=== PATIENT | female | born 1940 | race African-American/Black ===

== ENCOUNTER 2017-08-18 07:05 | Inpatient (IN) | payer OTHER ==
[~2017-08-18] VITALS: Ht 152.4 cm; Wt 67.1 kg
--- NOTE | ~2017-08-18 | HC ---
[facility] [place] [address] CONSULTATION Name: LINA LOMELI Ash Room #: 448-P [facility] IN M.R.#: [id number] Admission: 08/18/17 Attend Phys: Cassius Fields MD Discharge: 08/22/17 Date of : 42 Report #: [id number] THIS REPORT FOR: //name// CC: Cassius Urias DATE OF SERVICE: 08/21/2017 REASON FOR CONSULTATION: Shortness of breath. IMPRESSION: 1. Likely exacerbation of chronic obstructive pulmonary disease/asthmatic bronchitis. 2. Eosinophilia. 3. Shingles. 4. Allergic rhinitis. PLAN: 1. We will do a D-dimer. If positive, we will do CT PE protocol. 2. Because sinuses seem to have always been a problem and may be driving part of this, we will do a CT sinus. 3. Strict reflux precautions will be done. 4. Switch to oral corticosteroids. 5. As she feels better with this regimen, we will try to get it for home. 6. We will also look for tracheomalacia. 7. Prior CT did not show any significant bronchiectasis. We will hold off on chest percussion at present time or vest. HISTORY OF PRESENT ILLNESS: This is a very pleasant 76-year-old female with a history of asthma and COPD, comes in with progressive shortness of breath, cough and sputum production. She relates sputum production is better. She is still wheezing some, but feeling better than usual. She has been on steroids in the past. She denies current fever or chills. She does describe some reflux. She has had recent shingles. PAST MEDICAL HISTORY: ALLERGIES: AVELOX. HOME MEDICATIONS: Have included Proventil, Acular, Cozaar, Singulair, Naprosyn, prednisone, Anoro. PAST SURGICAL HISTORY: Include cataract surgery, hysterectomy, sinus surgery, oral surgery for upper teeth. FAMILY HISTORY: Positive for lung disease. [facility] [address] [place] [address] CONSULTATION Name: LINA LOMELI Room #: 448-P [facility] IN M.R.#: [id number] Admission: 08/18/17 Attend Phys: Cassius Fields MD Discharge: 08/22/17 Date of : 42 Report #: [id number] SOCIAL HISTORY: Negative tobacco or EtOH. REVIEW OF SYSTEMS: Positive cough, shortness of breath, discolored sputum. No definite chest pain or palpitations. No current nausea or vomiting. Positive reflux. Positive decreased appetite, nasal stuffiness and decreased vision. PHYSICAL EXAMINATION: VITAL SIGNS: Temperature 98, pulse 92, respiratory rate 20, BP 158/66. EYES: Negative icterus. NECK: Negative JVD. LUNGS: Showed wheeze, mild bilateral. HEART: Regular. ABDOMEN: Benign. EXTREMITIES: Showed no calf tenderness. Moved all extremities. Trace edema. LABORATORY DATA: BUN 18, creatinine 1. White count 11.3, hemoglobin 13.5. Eosinophils were 6.8, currently none. Chest x-ray on the showed no acute. Last echo was 2013. PA systolic was 35. May need to repeat this depending on above. It could be done as outpatient. Sputum negative thus far. <ELECTRONICALLY SIGNED> By: Mazin Dawson MD 08/24/17 1808 1424 1819 Mazin Dawson MD /nt
--- NOTE | ~2017-08-18 | EKG ---
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 : 1940 Requested By: Clarisse Lawton Order Number: [id number] MD: Jose Luis Mota Measurements Intervals [place] Rate: 100 P: 32 VA: 138 QRS: 28 QRSD: 78 T: 33 QT: 381 QTc: 492 Interpretive Statements Sinus tachycardia Prolonged QT interval Early R-wave progression Compared to ECG 08/02/2014 02:56:25 Early R-wave progression is now present QT interval has lengthened Electronically Signed On 08-19-2017 9:48:11 STAB SETTER AND DRILLER by Jose Luis Mota [email or web address] <ELECTRONICALLY SIGNED> By: Jose Luis Mota MD, [facility] 08/19/17 0948 0745 0745 Jose Luis oMta MD, [facility] /EPI
[~2017-08-18 07:05] MED LIST: ALBUTEROL2.5 MG/0.5 INH; ALLEGRA ALLERGY60 MG; ASPIRIN EC81 M1 PO; AUGMENTIN 875-1 EACH PO; AVELOX400 MG PO; AZITHROMYCIN 2250 MG PO; CENTANY30 GM; COLACE100 MG PO; COMBIVENT INH; FLONASE 0.05%50 MCG NASAL; HYDROCODONE-APA1 TA1 PO; LEVAQUIN 500 M500 M2 PO; MEDROLDOSEPACK PO; MUCINEX TA600 MG/TA2 PO; MULTIVITAMINS1 EAC7 PO; NASACORT10.8 ML NASAL; NASAL SPRAY44 ML NS; NOHOMEMEDICATIONS; PREDNISONE 10 M10 MG PO; PREDNISONE 20 M20 M1 PO; PREDNISONE50 MG PO; PROVENTIL HFA6.7 G1 INH; SUDAFED 12 HR120 MG PO; SYMBICORT160 MCG/4. INH; TESSALON PERLE100 M1 PO; TYLENOL325 MG PO; VENTOLIN HFA 1818 GM INH; ZOFRAN ODT8 MG PO; ZPAK PO; ZYRTEC10 MG PO
[2017-08-18 07:33] LABS: ABSOLUTE NEUTROPHILS 4.8 thou/uL (1.4-8.2); BASOPHILS 0.7 % (0.0-2.0); EOSINOPHILS 6.8 % (0.0-3.0); HEMATOCRIT 45.8 % (37.0-47.0); HEMOGLOBIN 15.3 gm/dL (12.0-15.0); LYMPHOCYTES 30.4 % (24.0-44.0); MCH 30.7 pg (26.0-34.0); MCHC 33.5 g/dL (28.0-37.0); MCV 91.6 fL (80.0-100.0); MONOCYTES 10.4 % (1.0-8.0); PLATELET COUNT 301 thou/uL (150-400); POLYS 51.7 % (36.0-66.0); WBC 9.3 thou/uL (4.0-11.0)
[2017-08-18 07:34] LABS: MANUAL DIFF NO
[2017-08-18 07:40] LABS: CALCIUM 9.7 mg/dL (8.5-10.1); CREATININE 0.8 mg/dL (0.6-1.0); POTASSIUM 3.2 mmol/L (3.5-5.1)
[2017-08-18 08:40] LABS: ABG SAMPLE TYPE ARTERIAL; BE(vivo) 1.3 mmol/L (-2 to +3); HCO3 25.9 mmol/L (22.0-26.0); LACTATE 2.09 mmol/L (0.5-2.0); O2(CT) 20.6 mL/dL (15.0-23.0); O2Hb 92.3 % (92.0-98.0); PCO2 40.6 mmHg (35.0-45.0); PO2 64.2 mmHg (80.0-100.0); pH 7.422 (7.360-7.450); sO2 92.9 % (92.0-98.0); tCO2 27.1 mmol/L (24.0-30.0)
[2017-08-18 08:42] LABS: STICK SITE R.RADIAL
[2017-08-18 09:04] VITALS: BP 161/84
[2017-08-18 09:33] VITALS: BP 142/75
[2017-08-18 10:15] VITALS: BP 158/85
[2017-08-18 15:55] VITALS: BP 146/67
[2017-08-18 19:59] VITALS: BP 131/79
[2017-08-19 04:11] VITALS: BP 124/76
[2017-08-19 06:49] LABS: HEMATOCRIT 41.1 % (37.0-47.0); HEMOGLOBIN 13.7 gm/dL (12.0-15.0); MCH 30.5 pg (26.0-34.0); MCHC 33.4 g/dL (28.0-37.0); MCV 91.3 fL (80.0-100.0); RBC 4.5 mil/uL (4.20-5.00); RDW 13.4 % (10.5-14.5); WBC 8.7 thou/uL (4.0-11.0)
[2017-08-19 07:05] LABS: ALBUMIN 3.5 g/dL (3.4-5.0); CALCIUM 9.4 mg/dL (8.5-10.1); POTASSIUM 4.1 mmol/L (3.5-5.1); TOTAL BILIRUBIN 0.8 mg/dL (<0.1-1.0); TOTAL PROTEIN 6.5 g/dL (6.4-8.2)
[2017-08-19 15:50] VITALS: BP 126/60
[2017-08-19 19:54] VITALS: BP 120/51
[2017-08-20 05:08] VITALS: BP 142/62
[2017-08-20 08:00] VITALS: BP 142/62
[2017-08-20 09:40] VITALS: BP 128/65
[2017-08-20 15:46] VITALS: BP 137/50
[2017-08-20 20:16] VITALS: BP 126/71
[2017-08-21 03:13] VITALS: BP 140/74
[2017-08-21 08:00] VITALS: BP 158/66
[2017-08-21 08:25] VITALS: BP 158/66
[2017-08-21 12:14] LABS: HEMATOCRIT 40.7 % (37.0-47.0); HEMOGLOBIN 13.5 gm/dL (12.0-15.0); MCH 30.8 pg (26.0-34.0); MCHC 33.2 g/dL (28.0-37.0); PLATELET COUNT 224 thou/uL (150-400); RBC 4.38 mil/uL (4.20-5.00); RDW 13.8 % (10.5-14.5); WBC 11.3 thou/uL (4.0-11.0)
[2017-08-21 12:23] LABS: MANUAL DIFF YES
[2017-08-21 14:00] LABS: ABSOLUTE NEUTROPHILS 10.4 thou/uL (1.4-8.2); PLATELET ESTIMATE NORMAL; TOTAL CELL COUNT 100
[2017-08-21 17:30] VITALS: BP 147/83
[2017-08-21 20:18] VITALS: BP 159/76
[2017-08-22 04:28] VITALS: BP 136/78
[2017-08-22 07:18] VITALS: BP 145/70
[2017-08-22] MEDS ORDERED: AUGMENTIN 500-1 EACH PO (11:41)
[2017-08-22] MEDS ORDERED: NEURONTIN 300M300 M2 PO (11:41)
[2017-08-22] MEDS ORDERED: PREDNISONE 20 M20 MG PO (11:41)
[2017-08-22] MEDS ORDERED: DUONEB 2.5-0.5 M3 ML INH (11:41)
[2017-08-22 12:29] VITALS: BP 145/70
== END 2017-08-22 14:20 | disposition home or self-care (01) | DRG 872 ==
LOC: ER 07:05 → 4S 08:30 → EROBS 08:30 → 4S 09:36 → ENTRNSPT 08-22 14:10 → EDTRNSPTSTS 08-22 14:11 → 4S 08-22 14:20
PROVIDERS: Emergency Medicine; Hospitalist; Internal Medicine Pulmonary Disease
DX: A41.9 Sepsis, unspecified organism (principal); J44.1 Chronic obstructive pulmonary disease with (acute) exacerbation; E87.6 Hypokalemia; J32.9 Chronic sinusitis, unspecified; J01.90 Acute sinusitis, unspecified; D72.1 Eosinophilia; B02.9 Zoster without complications; J30.9 Allergic rhinitis, unspecified; Z23 Encounter for immunization; Z88.1 Allergy status to other antibiotic agents; Z90.710 Acquired absence of both cervix and uterus; Z84.89 Family history of other specified conditions
CPT/HCPCS: 10100

== ENCOUNTER 2017-09-09 18:56 | Inpatient (IN) | payer OTHER ==
[~2017-09-09] VITALS: Ht 165.1 cm; Wt 66.3 kg
[2017-09-09] VITALS (7 sets, daily range): BP systolic 131–194; BP diastolic 83–111
--- NOTE | ~2017-09-09 | EKG ---
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 : 1940 Requested By: Chuy Valenzuela Order Number: [id number] MD: Raghavendra Luz Measurements Intervals [place] Rate: 117 P: 74 AL: 143 QRS: 74 QRSD: 109 T: 49 QT: 339 QTc: 473 Interpretive Statements Sinus tachycardia Ventricular premature complex Probable left atrial enlargement Compared to ECG 08/18/2017 07:45:57 Ventricular premature complex(es) now present Prolonged QT interval no longer present Electronically Signed On 09-09-2017 21:33:14 DRIVABILITY TECHNICIAN by Raghavendra Luz [email or web address] <ELECTRONICALLY SIGNED> By: Raghavendra Luz MD 09/09/17 2133 00 00 Raghavendra Luz MD /EPI
[~2017-09-09 18:56] MED LIST changes: +AUGMENTIN 500-1 EACH PO; +DUONEB 2.5-0.5 M3 ML INH; +NEURONTIN 300M300 M2 PO; +PREDNISONE 20 M20 MG PO
[2017-09-09 19:18] LABS: ABSOLUTE NEUTROPHILS 3.3 thou/uL (1.4-8.2); BASOPHILS 0.4 % (0.0-2.0); EOSINOPHILS 7.9 % (0.0-3.0); HEMATOCRIT 41.3 % (37.0-47.0); HEMOGLOBIN 13.9 gm/dL (12.0-15.0); LYMPHOCYTES 36.5 % (24.0-44.0); MANUAL DIFF NO; MCH 31.2 pg (26.0-34.0); MCHC 33.6 g/dL (28.0-37.0); PLATELET COUNT 291 thou/uL (150-400); POLYS 44.2 % (36.0-66.0); RBC 4.44 mil/uL (4.20-5.00); RDW 13.8 % (10.5-14.5); WBC 7.3 thou/uL (4.0-11.0)
[2017-09-09 19:27] LABS: ANION GAP 7 mmol/L (7-16); BUN 5 mg/dL (7-18); CALCIUM 9.3 mg/dL (8.5-10.1); CHLORIDE 106 mmol/L (98-107); CO2 29 mmol/L (21-32); CREATININE 0.6 mg/dL (0.6-1.0); GLUCOSE 181 mg/dL (74-106); POTASSIUM 3.7 mmol/L (3.5-5.1); SODIUM 142 mmol/L (136-145)
[2017-09-09 19:35] LABS: ALBUMIN 3.6 g/dL (3.4-5.0); ALKALINE PHOSPHATASE 58 U/L (46-116); SGOT 26 U/L (15-37); SGPT 36 U/L (30-65); TOTAL BILIRUBIN 0.7 mg/dL (<0.1-1.0); TOTAL PROTEIN 6.7 g/dL (6.4-8.2); TROPONIN-I < 0.04 ng/mL (<0.06)
[2017-09-09 19:39] LABS: ABG SAMPLE TYPE ARTERIAL; BE(vivo) -7.9 mmol/L (-2 to +3); HCO3 21.8 mmol/L (22.0-26.0); LACTATE 0.94 mmol/L (0.5-2.0); O2(CT) 20.8 mL/dL (15.0-23.0); O2Hb 97.5 % (92.0-98.0); PO2 150.9 mmHg (80.0-100.0); sO2 98.3 % (92.0-98.0); tCO2 23.7 mmol/L (24.0-30.0)
[2017-09-09 19:40] LABS: STICK SITE R.BRACHIAL; pH 7.163 (7.360-7.450)
[2017-09-09 23:23] LABS: ABG SAMPLE TYPE ARTERIAL; BE(vivo) -2.5 mmol/L (-2 to +3); HCO3 24.2 mmol/L (22.0-26.0); LACTATE 1.71 mmol/L (0.5-2.0); O2(CT) 20.3 mL/dL (15.0-23.0); O2Hb 98.2 % (92.0-98.0); PCO2 49.1 mmHg (35.0-45.0); PO2 173.7 mmHg (80.0-100.0); tCO2 25.7 mmol/L (24.0-30.0)
[2017-09-09 23:25] LABS: FIO2 40 %; Pressure Support 6 cm H20
[2017-09-10] VITALS (23 sets, daily range): BP systolic 117–169; BP diastolic 65–126
[2017-09-10 04:13] LABS: HEMATOCRIT 41.6 % (37.0-47.0); HEMOGLOBIN 13.7 gm/dL (12.0-15.0); MCH 30.8 pg (26.0-34.0); MCHC 32.9 g/dL (28.0-37.0); MCV 93.7 fL (80.0-100.0); RBC 4.44 mil/uL (4.20-5.00); RDW 14.1 % (10.5-14.5); WBC 4.1 thou/uL (4.0-11.0)
[2017-09-10 04:23] LABS: CREATININE 0.7 mg/dL (0.6-1.0)
[2017-09-10] MEDS ORDERED: DUONEB 2.5-0.5 M3 ML INH (08:14)
[2017-09-10] MEDS ORDERED: SINGULAIR 10 MG10 M1 PO (08:14)
[2017-09-10] MEDS ORDERED: PREDNISONE 5 MG5 M1 PO (08:14)
[2017-09-10] MEDS ORDERED: COZAAR 50 MG TA50 M2 PO (08:14)
[2017-09-11 00:15] VITALS: BP 153/89
[2017-09-11 04:31] VITALS: BP 125/65
[2017-09-11 06:34] LABS: HEMATOCRIT 34.5 % (37.0-47.0); MCH 31.3 pg (26.0-34.0); MCHC 33.8 g/dL (28.0-37.0); MCV 92.5 fL (80.0-100.0); RBC 3.72 mil/uL (4.20-5.00); RDW 13.7 % (10.5-14.5); WBC 9.5 thou/uL (4.0-11.0)
[2017-09-11 06:43] LABS: HEMOGLOBIN 11.6 gm/dL (12.0-15.0)
[2017-09-11 06:53] LABS: CALCIUM 8.7 mg/dL (8.5-10.1); CREATININE 0.7 mg/dL (0.6-1.0)
[2017-09-11 08:00] VITALS: BP 134/59
[2017-09-11 15:50] VITALS: BP 144/64
[2017-09-11 20:12] VITALS: BP 139/63
[2017-09-12 04:30] VITALS: BP 128/65
[2017-09-12 08:12] VITALS: BP 143/74
[2017-09-12] MEDS ORDERED: AUGMENTIN 500-1 EACH PO (13:44)
[2017-09-12] MEDS ORDERED: PREDNISONE 20 M20 MG PO ×2 (13:44→13:47)
[2017-09-12 14:00] VITALS: BP 143/74
[2017-09-12 14:46] VITALS: BP 143/74
== END 2017-09-12 14:49 | disposition home or self-care (01) | DRG 871 ==
LOC: ER 18:56 → ICU 19:53 → EROBS 19:53 → ICU 21:30 → 4S 09-11 00:25 → ENTRNSPT 09-12 14:27 → EDTRNSPTSTS 09-12 14:31 → 4S 09-12 14:49
PROVIDERS: Hospitalist; Nurse Practitioner Family; Physician Assistant
PROC: 5A09357 Assistance with Respiratory Ventilation, Less than 24 Consecutive Hours, Continuous Positive Airway Pressure (ICD-10-PCS; principal; 2017-09-09)
DX: A41.9 Sepsis, unspecified organism (principal); J96.22 Acute and chronic respiratory failure with hypercapnia; J96.21 Acute and chronic respiratory failure with hypoxia; J44.1 Chronic obstructive pulmonary disease with (acute) exacerbation; J45.901 Unspecified asthma with (acute) exacerbation; I10 Essential (primary) hypertension; J32.9 Chronic sinusitis, unspecified; J30.9 Allergic rhinitis, unspecified; Z23 Encounter for immunization; Z79.52 Long term (current) use of systemic steroids; Z88.1 Allergy status to other antibiotic agents; Z79.899 Other long term (current) drug therapy; Z90.710 Acquired absence of both cervix and uterus
CPT/HCPCS: 10100; 10203

== ENCOUNTER 2018-12-25 05:38 | Inpatient (IN) | payer OTHER ==
[2018-12-16 13:24] LABS: HEMATOCRIT 39.5 % (37.0-47.0); HEMOGLOBIN 13.6 gm/dL (12.0-15.0); MCH 30.4 pg (26.0-34.0); MCHC 34.5 g/dL (28.0-37.0); RBC 4.49 mil/uL (4.20-5.00); RDW 15.7 % (10.5-14.5); URINE BILIRUBIN NEGATIVE (Negative); URINE BLOOD NEGATIVE (Negative); URINE CLARITY SL CLOUDY; URINE COLOR YELLOW; URINE GLUCOSE-RANDOM* NEGATIVE (Negative); URINE KETONES NEGATIVE (Negative); URINE NITRITE-REFLEX NEGATIVE (Negative); URINE PROTEIN (DIPSTICK) TRACE (Negative); URINE SPECIFIC GRAVITY 1.025 (1.005-1.035); URINE UROBILINOGEN 0.2 E.U./dl (0.2-1.0); WBC 5.5 thou/uL (4.0-11.0)
[2018-12-16 13:25] LABS: URINE LEUKOCYTES-REFLEX 3+ (Negative)
[2018-12-16 13:31] LABS: CALCIUM 9.6 mg/dL (8.5-10.1); CREATININE 0.5 mg/dL (0.6-1.0); POTASSIUM 4.1 mmol/L (3.5-5.1)
[2018-12-16 13:32] LABS: AMORPHOUS URATES Moderate /LPF (None Seen); CASTS None Seen /LPF (None Seen); SQUAMOUS 0-3 Few /LPF (0-3); URINE RBC None Seen /HPF (0-2); URINE WBC-REFLEX 6-15 Few /HPF (0-5)
[2018-12-16 13:36] LABS: PROTIME 10.3 Seconds (9.3-11.4)
[~2018-12-25] VITALS: Ht 165.1 cm; Wt 64.9 kg
--- NOTE | ~2018-12-25 | O ---
[facility] [place] [address] OPERATIVE REPORT Name: LINA LOMELI Room #: 150-8 ADM IN M.R.#: [id number] Admission: 12/25/18 ������������������ Attend Phys: Suresh Arango Discharge: ������������������ Date of : 42 Report #: [id number] THIS REPORT FOR: //name// CC: Dallin Zepeda PREOPERATIVE DIAGNOSES: Left shoulder pain, rotator cuff tear arthropathy, biceps tendinopathy and tear. POSTOPERATIVE DIAGNOSES: Left shoulder pain, rotator cuff tear arthropathy, biceps tendinopathy and tear. PROCEDURE PERFORMED: Left shoulder reverse total shoulder arthroplasty with open biceps tenodesis. SURGEON: Suresh Zepeda M.D. VARNISH MAKER HELPER: Reina Green PA-C. ANESTHESIA: General with preoperative ultrasound-guided interscalene block. FLUIDS: Approximately 600 mL crystalloid. ESTIMATED BLOOD LOSS: Approximately 75 mL. IMPLANTS UTILIZED: DePuy Global Xtend reverse total shoulder, size 8 Global Unite stem and size 1 epiphysis with a 38 mm eccentric glenosphere standard metaglene. DESCRIPTION OF PROCEDURE: After proper identification of the patient and operative site in preoperative holding area, the operative site was signed by myself. Prophylactic antibiotics given. The patient elected to receive an ultrasound-guided block after reviewing the risks, benefits, alternatives and potential complications with anesthesia. After a satisfactory block, the patient was brought back to the operative suite after induction of satisfactory general anesthesia. The patient was carefully positioned in the beach chair with head of bed elevated approximately 40 degrees. Left shoulder was stabilized with a Tenet spider limb positioning system throughout the entire procedure. Limb was sterilely prepped and draped in usual manner. Final skin draping was with Ioban. Anterior deltopectoral approach was planned. Skin was incised sharply. Full thickness skin flaps were developed. Cephalic vein was identified and retracted laterally. Subdeltoid adhesions were carefully released and long head biceps tendon was identified and tenodesed to the upper border of the pectoralis major. Portion of the upper border of the pectoralis has also been released for exposure purposes. The inferior subscapularis was still intact and was released off the lesser tuberosity, otherwise a large to massive sized rotator cuff tear was noted with arthrosis noted on both sides of [address] [address] OPERATIVE REPORT Name: LOMELILINA Room #: 150-8 ADM IN R.#: [id number] Admission: 12/25/18 ������������������ Attend Phys: Suresh Arango Discharge: ������������������ Date of : 42 Report #: [id number] the joint. Humerus was externally rotated and using the appropriate cutting jig, a humeral head osteotomy was performed. Peripheral bone spurs were carefully released. A small portion of the posterior cuff was still attached. The patient had a relatively small bony stature and the epiphyseal and metaphyseal size protection plate was applied at this point. Attention was divided to the subscapularis release. Axillary nerve was identified and protected throughout the entire procedure. The anterior capsule was carefully divided off the subscapularis, and then, the labrum was excised circumferentially. Inferior capsule was released off the glenoid side, and there was excellent exposure of the glenoid. Metaglene guide pin was inserted as inferior as possible while keeping this within good bone, and this was placed into the scapula. Glenoid face was then reamed. Lucas reamer was utilized Any peripheral soft tissue was carefully removed. A cyst within the more posterior inferior glenoid was noted, and the metaglene was carefully impacted into position. Central peg was contained within the vault and did not perforate. The superior and inferior locking screw holes were then drilled. 42 mm screw was placed inferiorly, 30 mm screw superiorly. These had excellent purchase, followed by two 18 mm screws in the anterior and posterior dimensions. These were sequentially tightened. Locking screws were tightened and a 38 eccentric glenosphere was positioned with the eccentricity inferior. This was done over a guidewire. The locking screw was rotated counterclockwise until a click was noted. This was then carefully advanced, impacted and tightened three additional times until it was fully seated. It had excellent purchase on the glenoid. The patient did have significant tightness of the soft tissue envelope and the soft tissues around the proximal humerus were released and the inferior translation as she had some superior migration with her cuff arthropathy. The remaining metaphysis was then carefully reamed, and with reaming, there was some fragmentation of the lesser tuberosity and the more inferior aspect of the metaphysis. During the exposure purposes, even with a protection plate, had caused some fragmentation in this region as well. A size 8 stem provided the best fit distally with a size 1 epiphysis and a +3 polyethylene, and these were the final implants chosen. Hydroxyapatite coated Global Unite stem was carefully impacted into position and with the fragmentation of the tuberosities, the remaining subscapularis was not able to be tied to this, but a tenodesis to the posterior soft tissues was performed. A tenodesis to the remaining teres minor soft tissues was performed under direct visualization, with care taken to not incorporate axillary nerve or any other structures. A +3 poly had been impacted. It was stable. Joint was reduced. There was good soft tissue tension, although was not excessive soft tissue tension. Joint was reduced nicely, had good range of motion. Deltoid did not appear to have any undue tension, and the wound was irrigated with antibiotic irrigant as had done so multiple times throughout the procedure. 1 gram vancomycin powder was utilized deep, half of it more superficial. #1 Vicryl was used to close the deep tissues, 2-0 Vicryl for the subcutaneous tissues, followed by running Monocryl stitch with Dermabond. A sterile Aquacel dressing was then applied. She was awakened and transferred to the recovery room in stable condition. Qualified [address] [address] OPERATIVE REPORT Name: LINA LOMELI Room #: 150-8 ADM IN M.R.#: [id number] Admission: 12/25/18 ������������������ Attend Phys: Suresh Arango Discharge: ������������������ Date of : 42 Report #: [id number] first aid instructor utilized throughout the entire procedure to aid in patient limb positioning, visualization and retraction of the soft tissues, instrument passage closure and sling application. Sling will be utilized for 4 weeks postoperatively. ��������������������������������������������� ���������������������������������������� By: ��������������������������������������������� 1043 1228 Suresh Zepeda MD /nt
[~2018-12-25 05:38] MED LIST changes: +ALEVE220 MG PO; +ANORO ELLIPTA1 EACH SPRAY; +CALCIUM 600 +1 EAC1 PO; +COZAAR 50 MG TA50 M2 PO; +NORCO 5-325 TA1 EACH PO; +PREDNISONE 5 MG5 M1 PO; +REQUIP0.5 MG PO; +SENNA8.6 MG PO; +SINGULAIR 10 MG10 M1 PO; +TRELEGY ELLIPT1 EACH INH; +VOLTAREN GEL 1100 G1 TOP
[2018-12-25 07:30] VITALS: BP 139/67
[2018-12-25 13:53] VITALS: BP 146/80
[2018-12-25 14:35] VITALS: BP 149/91
[2018-12-25 19:20] VITALS: BP 136/78
[2018-12-26 03:54] VITALS: BP 134/73
[2018-12-26 06:03] LABS: HEMATOCRIT 27.6 % (37.0-47.0); HEMOGLOBIN 9.4 gm/dL (12.0-15.0)
[2018-12-26 07:22] VITALS: BP 119/65
[2018-12-26 15:22] VITALS: BP 114/47
[2018-12-26 19:20] VITALS: BP 117/60
[2018-12-27 05:08] VITALS: BP 116/84
[2018-12-27 08:19] VITALS: BP 107/56
[2018-12-27 15:31] VITALS: BP 108/51
[2018-12-27 20:21] VITALS: BP 92/41
[2018-12-28 04:46] VITALS: BP 136/72
[2018-12-28 07:50] VITALS: BP 89/41
[2018-12-28 12:52] VITALS: BP 108/55
== END 2018-12-28 13:55 | DRG 483 ==
LOC: PRE 05:38 → TBA 05:51 → 4W 13:57 → PRE 14:02 → 4W 14:28
PROVIDERS: Physician Assistant Surgical; ADMIT Orthopaedic Surgery Sports Medicine
PROC: 0RRK00Z Replacement of Left Shoulder Joint with Reverse Ball and Socket Synthetic Substitute, Open Approach (ICD-10-PCS; principal; 2018-12-25)
PROC: 0LS40ZZ Reposition Left Upper Arm Tendon, Open Approach (ICD-10-PCS; 2018-12-25)
DX: M75.102 Unspecified rotator cuff tear or rupture of left shoulder, not specified as traumatic (principal); J44.9 Chronic obstructive pulmonary disease, unspecified; I10 Essential (primary) hypertension; Z88.1 Allergy status to other antibiotic agents; Z98.49 Cataract extraction status, unspecified eye; Z90.710 Acquired absence of both cervix and uterus
CPT/HCPCS: 10047; 50010; 50101; 50172; 50386; 50417; 50697; 50733; 50935; 51320; 52001; 52138; 52256; 53000; 53078; 54118; 55430; 56524; 56525; 56526; 56530; 57095; 57103; 62110; 62900; 64039; 70005

== ENCOUNTER 2019-01-14 23:46 | Emergency (ER) | payer OTHER ==
[~2019-01-14] VITALS: Ht 165.1 cm; Wt 59.0 kg
[2019-01-15 00:21] LABS: ABSOLUTE NEUTROPHILS 11.1 thou/uL (1.4-8.2); BASOPHILS 0.4 % (0.0-2.0); EOSINOPHILS 0.2 % (0.0-3.0); HEMATOCRIT 30.4 % (37.0-47.0); MCH 29.3 pg (26.0-34.0); MCHC 32.8 g/dL (28.0-37.0); MCV 89.4 fL (80.0-100.0); PLATELET COUNT 313 thou/uL (150-400); POLYS 81.4 % (36.0-66.0); RDW 15.7 % (10.5-14.5); WBC 13.6 thou/uL (4.0-11.0)
[2019-01-15 00:29] LABS: CALCIUM 8.6 mg/dL (8.5-10.1); CREATININE 0.7 mg/dL (0.6-1.0); POTASSIUM 4.1 mmol/L (3.5-5.1)
[2019-01-15 00:31] LABS: URINE BILIRUBIN NEGATIVE (Negative); URINE BLOOD NEGATIVE (Negative); URINE CLARITY CLEAR; URINE COLOR YELLOW; URINE GLUCOSE-RANDOM* NEGATIVE (Negative); URINE KETONES NEGATIVE (Negative); URINE LEUKOCYTES-REFLEX NEGATIVE (Negative); URINE NITRITE-REFLEX NEGATIVE (Negative); URINE PROTEIN (DIPSTICK) NEGATIVE (Negative); URINE UROBILINOGEN 0.2 E.U./dl (0.2-1.0)
[2019-01-15 00:34] LABS: TOTAL BILIRUBIN 0.5 mg/dL (<0.1-1.0); TOTAL PROTEIN 6.4 g/dL (6.4-8.2)
[2019-01-15] MEDS ORDERED: KEFLEX500 M1 PO (01:24)
[2019-01-15] MEDS ORDERED: FLEXERIL PO (01:38)
[2019-01-15] MEDS ORDERED: VITAMINC500 PO (01:39)
[2019-01-15] MEDS ORDERED: UNICOMPLEX M TA1 TA1 PO (01:39)
[2019-01-15] MEDS ORDERED: NORCO 10-325 T1 EACH PO (01:40)
[2019-01-15] MEDS ORDERED: NEURONTIN 300300 M1 PO (01:41)
[2019-01-15] MEDS ORDERED: MELATONIN3 MG PO (01:42)
[2019-01-15 03:07] VITALS: BP 102/47
== END 2019-01-15 03:46 | disposition home or self-care (01) ==
LOC: ER 23:46
PROVIDERS: Emergency Medicine
DX: R50.9 Fever, unspecified (principal); J44.9 Chronic obstructive pulmonary disease, unspecified; I10 Essential (primary) hypertension; M19.90 Unspecified osteoarthritis, unspecified site; Z96.612 Presence of left artificial shoulder joint; Z88.8 Allergy status to other drugs, medicaments and biological substances; Z87.01 Personal history of pneumonia (recurrent); Z90.710 Acquired absence of both cervix and uterus

== ENCOUNTER 2019-01-17 11:04 | Inpatient (IN) | payer OTHER ==
[~2019-01-17] VITALS: Ht 165.1 cm; Wt 59.0 kg
[2019-01-17 11:04] VITALS: BP 101/43
[~2019-01-17 11:04] MED LIST changes: +FLEXERIL PO; +KEFLEX500 M1 PO; +MELATONIN3 MG PO; +NEURONTIN 300300 M1 PO; +NORCO 10-325 T1 EACH PO; +UNICOMPLEX M TA1 TA1 PO; +VITAMINC500 PO
[2019-01-17 11:28] LABS: ABSOLUTE NEUTROPHILS 8.5 thou/uL (1.4-8.2); BASOPHILS 0.3 % (0.0-2.0); HEMATOCRIT 25.6 % (37.0-47.0); HEMOGLOBIN 8.6 gm/dL (12.0-15.0); LYMPHOCYTES 8.4 % (24.0-44.0); MCH 29.5 pg (26.0-34.0); MCHC 33.5 g/dL (28.0-37.0); MCV 87.9 fL (80.0-100.0); MONOCYTES 7.6 % (1.0-8.0); POLYS 83.7 % (36.0-66.0); RBC 2.91 mil/uL (4.20-5.00); RDW 15.7 % (10.5-14.5); WBC 10.1 thou/uL (4.0-11.0)
[2019-01-17 11:29] LABS: PLATELET COUNT 187 thou/uL (150-400)
[2019-01-17 11:35] LABS: CALCIUM 8.6 mg/dL (8.5-10.1); CREATININE 0.9 mg/dL (0.6-1.0)
[2019-01-17 11:38] LABS: POTASSIUM 2.9 mmol/L (3.5-5.1)
[2019-01-17 11:41] LABS: ALBUMIN 2.5 g/dL (3.4-5.0); TOTAL BILIRUBIN 0.8 mg/dL (<0.1-1.0); TOTAL PROTEIN 6.3 g/dL (6.4-8.2)
[2019-01-17 12:12] LABS: URINE BILIRUBIN NEGATIVE (Negative); URINE BLOOD 1+ (Negative); URINE CLARITY CLOUDY; URINE COLOR YELLOW; URINE GLUCOSE-RANDOM* NEGATIVE (Negative); URINE KETONES TRACE (Negative); URINE LEUKOCYTES-REFLEX TRACE (Negative); URINE NITRITE-REFLEX NEGATIVE (Negative); URINE PROTEIN (DIPSTICK) 2+ (Negative); URINE SPECIFIC GRAVITY 1.025 (1.005-1.035); URINE UROBILINOGEN 0.2 E.U./dl (0.2-1.0)
[2019-01-17 12:25] LABS: AMORPHOUS URATES Few /LPF (None Seen); SQUAMOUS 0-3 Few /LPF (0-3); URINE RBC 0-2 Rare /HPF (0-2); URINE WBC-REFLEX 0-5 Rare /HPF (0-5)
[2019-01-17 12:26] LABS: CASTS None Seen /LPF (None Seen)
[2019-01-17] MEDS ORDERED: ZOFRAN ODT4 MG DISSOLVE (13:50)
[2019-01-17] MEDS ORDERED: MIRALAX17 GM PO (13:51)
[2019-01-17] MEDS ORDERED: BISACODYL SUPP10 MG RECTAL (13:51)
[2019-01-17] MEDS ORDERED: FLONASE 0.05%50 MCG NASAL (13:52)
[2019-01-17] MEDS ORDERED: DORZOLAMIDE 2%10 ML OPHTHALMIC (13:52)
[2019-01-17] MEDS ORDERED: CARBAMOXIDE15 ML OTIC (13:53)
[2019-01-17] MEDS ORDERED: DUREZOL5 ML OPHTHALMIC (13:54)
[2019-01-17 14:59] VITALS: BP 97/48
[2019-01-17 16:11] VITALS: BP 97/48
--- NOTE | 2019-01-17 16:43 | EKG ---
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 : 1940 Requested By: Alix Amato Order Number: [id number] MD: Pineda Encarnacion Measurements Intervals [place] Rate: 83 P: 39 [place]: 146 QRS: 29 QRSD: 72 T: 31 QT: 350 QTc: 412 Interpretive Statements Sinus rhythm Nonspecific ST segment abnormalities Compared to ECG 02/10/2018 23:00:00 T-wave abnormality now present Sinus tachycardia no longer present Electronically Signed On 01-17-2019 16:43:33 CDT by Pineda Encarnacion [email or web address] ��������������������������������������������� <ELECTRONICALLY SIGNED> ���������������������������������������� By: Pineda Encarnacion MD ��������������������������������������������� 01/17/19 1643 1154 1154 Pineda Encarnacion MD /STEPHEN
--- NOTE | 2019-01-17 18:25 | NUR ---
RESUMED CARE OF PT FROM ER AT 1600. PT A&OX4, VSS NO DISTRESS. FALL PRECAUTIONS IN PLACE, BED IN LOW POSITION, CALL LIGHT WITHIN REACH. WILL CONTINUE TO MONITOR.
[2019-01-17 19:12] VITALS: BP 101/51
[2019-01-17 21:00] VITALS: BP 98/49
--- NOTE | 2019-01-18 02:34 | NUR ---
PT GIVEN ICE PACKS FOR SHOULDER PAIN AND TYENOL PT WAS ABLE TO SLEEP MOST OF THE NIGHT PT USED CALL LIGHT EFFECTIELY.
[2019-01-18 03:27] VITALS: BP 101/57
[2019-01-18 04:49] LABS: ABSOLUTE NEUTROPHILS 8.1 thou/uL (1.4-8.2); BASOPHILS 0.2 % (0.0-2.0); EOSINOPHILS 0.1 % (0.0-3.0); HEMATOCRIT 24.1 % (37.0-47.0); HEMOGLOBIN 8.2 gm/dL (12.0-15.0); LYMPHOCYTES 7.1 % (24.0-44.0); MCH 30.2 pg (26.0-34.0); MCHC 34.1 g/dL (28.0-37.0); MCV 88.6 fL (80.0-100.0); MONOCYTES 7.8 % (1.0-8.0); PLATELET COUNT 176 thou/uL (150-400); POLYS 84.8 % (36.0-66.0); RBC 2.72 mil/uL (4.20-5.00); RDW 15.9 % (10.5-14.5); WBC 9.6 thou/uL (4.0-11.0)
[2019-01-18 04:59] LABS: CALCIUM 8.3 mg/dL (8.5-10.1); CREATININE 0.7 mg/dL (0.6-1.0); POTASSIUM 3.4 mmol/L (3.5-5.1)
[2019-01-18 05:22] LABS: FOLIC ACID 19.2 ng/mL (8.6-58.9)
[2019-01-18 07:10] VITALS: BP 105/54
[2019-01-18 07:25] VITALS: BP 109/60
[2019-01-18 16:09] VITALS: BP 109/63
[2019-01-18 19:10] VITALS: BP 105/54
--- NOTE | 2019-01-18 20:02 | NUR ---
QUIET UNEVENTFUL DAY. SAT UP IN CHAIR FOR LUNCH. UP WITH MINIMAL ASSISTANCE. T MAX 100.2. MEDICATED WITH TYLENOL FOR #4 LEFT SHOULDER PAIN AND HELPFUL. IV ANTIBIOTICS CONTINUED ORDERED. NEW IV PLACED. FALL PRECAUTIONS IN PLACE.
[2019-01-19 04:13] VITALS: BP 118/61
[2019-01-19 04:56] LABS: ABSOLUTE NEUTROPHILS 7.9 thou/uL (1.4-8.2); BASOPHILS 0.4 % (0.0-2.0); EOSINOPHILS 0.1 % (0.0-3.0); HEMATOCRIT 23.3 % (37.0-47.0); HEMOGLOBIN 7.9 gm/dL (12.0-15.0); LYMPHOCYTES 8.8 % (24.0-44.0); MCH 29.8 pg (26.0-34.0); MCHC 33.8 g/dL (28.0-37.0); MCV 88.2 fL (80.0-100.0); MONOCYTES 9.7 % (1.0-8.0); PLATELET COUNT 162 thou/uL (150-400); RBC 2.65 mil/uL (4.20-5.00); RDW 15.9 % (10.5-14.5); WBC 9.7 thou/uL (4.0-11.0)
[2019-01-19 05:09] LABS: CALCIUM 8.4 mg/dL (8.5-10.1); CREATININE 0.6 mg/dL (0.6-1.0); POTASSIUM 3.2 mmol/L (3.5-5.1)
[2019-01-19 07:12] VITALS: BP 122/63
[2019-01-19 13:52] VITALS: BP 129/64
--- NOTE | 2019-01-19 15:50 | NUR ---
Received awake on bed. Due medications given as prescribed, no difficulty swallowing. On mechanically soft diet- on swallowing precaution. Able to finish 100% of meals. Incontinent- checked regularly. With left sided weakness- assisted, turned regularly. Swill awaiting placement. With IV at right forearm, Normal saline at 80cc/hr, infusing well. On heart monitoring(telemetry). Seen by Neurologist this AM. Patient risk for falls, bed alarm on, protocol observed. Dr. Le visited patient earlier, might do surgery- no date given yet. Patient confused, alert and oriented to person only;Re-oriented. Breathing on room air. Slept most of the day but rousable, kept comfortable.
--- NOTE | 2019-01-19 17:00 | NUR ---
Received awake on bed. Due medications given as prescribed. Breathing on room air. With IV at Right forearm, noticed IV was on standby, checked on eMAR and resumed IV on prescribed rate- unable to modify time on eMAR, senior staff informed; IV site patent and fluids infusing well. With 3 week old post-op wound at left shoulder, patient wearing sling, with ice packs as handed over by manager body nurse but patient refused to have it today after offering several times. Patient's temperature of 100.8 after handover, Tylenol given as prescribed,rechecked temperature 99.2. For Vancomycin trough on 01/21, for CBC, Mg, Comp Metabolic panel on 01/20. Patient assisted in ADL's. Risk for falls, bed alarm on, protocol observed-patient checked regularly. Patient able to go to bathroom in AM with gait belt, cane and assist of 1, opened bowels. With scar from previous pressure ulcer at sacrum-intact, barrier cream applied- cable splicer nurse had photo taken as handed over. On heart monitor. Kept safe and comfortable. Jair santos called and asked for update regarding patient.
[2019-01-19 19:50] VITALS: BP 130/95
[2019-01-20 03:41] VITALS: BP 108/51
[2019-01-20 04:13] LABS: ABSOLUTE NEUTROPHILS 9.1 thou/uL (1.4-8.2); BASOPHILS 0.3 % (0.0-2.0); EOSINOPHILS 0.3 % (0.0-3.0); HEMATOCRIT 22.2 % (37.0-47.0); HEMOGLOBIN 7.4 gm/dL (12.0-15.0); LYMPHOCYTES 9.3 % (24.0-44.0); MCH 29.4 pg (26.0-34.0); MCHC 33.5 g/dL (28.0-37.0); MCV 87.9 fL (80.0-100.0); PLATELET COUNT 167 thou/uL (150-400); POLYS 79.1 % (36.0-66.0); RBC 2.53 mil/uL (4.20-5.00); RDW 16.1 % (10.5-14.5); WBC 11.5 thou/uL (4.0-11.0)
[2019-01-20 04:19] LABS: CALCIUM 8.3 mg/dL (8.5-10.1); CREATININE 0.6 mg/dL (0.6-1.0); MAGNESIUM 1.9 mg/dL (1.8-2.4); POTASSIUM 3.1 mmol/L (3.5-5.1)
[2019-01-20 07:16] LABS: ABSOLUTE RETIC COUNT 0.0054 10^6/uL; OBSERVED RETIC COUNT 0.21 % (0.6-2.6)
[2019-01-20 07:23] LABS: % SATURATION 6 % (20-39); IRON 8 ug/dL (50-170); TIBC 131 ug/dL (250-450)
--- NOTE | 2019-01-20 08:24 | NUR ---
PROGRESS PT CONFUSED AND ATTEMPTING TO GET OUT OF BED MOVED TO ROOM 462 FOR SAFETY. SLEPT ON AND OFF VSS CONTINUE POC.
--- NOTE | 2019-01-20 08:56 | HC ---
[facility] [place] [address] CONSULTATION Name: LINA LOMELI Room #: 462-P [facility] IN M.R.#: [id number] Admission: 01/17/19 ������������������ Attend Phys: Westley Cueva MD Discharge: ������������������ Date of : 42 Report #: [id number] THIS REPORT FOR: //name// CC: Westley Urias DATE OF SERVICE: 01/17/2019 INFECTIOUS DISEASE CONSULTATION: ATTENDING PHYSICIAN: Westley Cueva MD. REASON FOR CONSULTATION: Fever. HISTORY OF PRESENT ILLNESS: A 78-year-old woman presents back to the Emergency Room with history of persistent ongoing fevers since this past Sunday. She was evaluated in the Emergency Room a couple of days ago and she did have a chest x-ray that revealed no abnormalities that the ESR and CRP were only mildly elevated. She continues to have fever and presents to the Emergency Room again. She denies any significant pain on the left shoulder. No nausea, no vomiting, no diarrhea, no genitourinary symptoms. DRUG ALLERGIES: ALLERGIC TO MOXIFLOXACIN. PAST MEDICAL HISTORY: Hysterectomy. COPD. Full mouth extraction and dentures. Hypertension. Benign breast lesion biopsy in the past. Bilateral cataract surgery and history of glaucoma. Cervical spine fusion. Previous episode of pneumonia. Recent left shoulder replacement. MEDICATIONS: Include cephalexin 2 capsules p.o. b.i.d. at home as well as cyclobenzaprine, ascorbic acid, multivitamins, p.r.n. hydrocodone, melatonin, ondansetron, polyethylene glycol, losartan, ropinirole, sennoside. After discussing with the patient's nurse practitioner, I recommended initiation of vancomycin per pharmacy and cefepime 1 gram IV every 8 hours. PHYSICAL EXAMINATION: GENERAL: Well-developed woman, not toxic looking. VITAL SIGNS: Presenting temperature maximum 101.7 on 01/14/2019 and today is 101, pulse 87, respirations 16, BP is low as 90/42, O2 saturation 95% on room air. HEENT: Some arcus cornealis. Pupils reactive. Mouth edentulous. NECK: Supple. LUNGS: Crackles right lung base posteriorly. HEART: S1, S2. No gallop or murmur. ABDOMEN: Soft, no masses or megaly. EXTREMITIES: Left shoulder wound not infected looking. She is wearing a sling. [facility] [address] [place] [address] CONSULTATION Name: LINA LMOELI Room #: 462-P ADM IN M.R.#: [id number] Admission: 01/17/19 ������������������ Attend Phys: Westley Cueva MD Discharge: ������������������ Date of : 42 Report #: [id number] There is some trace pretibial edema. NEUROLOGIC: Grossly within normal limits. LABORATORY DATA: Reveal hypokalemia 2.98 mEq/L, BUN 16, creatinine 0.9, glucose 108. The albumin was 3 g/dL on 01/15/2019 drops to 2.5 g/dL today. The CRP was 67.3 mg/dL on 01/15/2019, today 305.2 mg per liter. White blood cell count 13.6 on 01/15/2019, 10,100 today, hemoglobin drops from 10 grams to 8.6 g/dL today. The ESR is 110 mm per hour today. The rapid influenza test negative. The urinalysis that was rather normal on the today revealed 2+ protein, trace ketones, 1+ blood. The microscopic exam revealed bacteriuria and 0-5 wbc's per HPF, 0-3 squamous epithelial cells, 0-2 rbc's per HPF and few amorphous urates. MICROBIOLOGY DATA: Blood and urine cultures obtained. RADIOLOGY EVALUATION: The shoulder x-ray revealed no fracture deformities, stable postoperative changes, left shoulder arthroplasty. The chest x-rays reveal some increased atelectasis in lung bases, more prominent left than right. No evidence of acute pneumonia or pneumothorax. ASSESSMENT: 1. Persistent fever, question secondary to urinary tract infection -- pyelonephritis versus lower respiratory tract infection, pneumonia. 2. Anemia. 3. Significant elevation of C-reactive protein and ESR. 4. Hypertension. 5. History of C-spine fixation. SUGGESTIONS: Proceed with blood and urine cultures already done. Her chest x-ray obviously not totally clean on bases. We might yet be dealing with little touch of pneumonia. Recommend combination of vancomycin to be dosed by pharmacy and cefepime 1 gram IV every 8 hours while awaiting culture result. Dr. Cueva, thank you for requesting my suggestions in the care of your patient. ��������������������������������������������� <ELECTRONICALLY SIGNED> ���������������������������������������� By: Jeb Luz MD ��������������������������������������������� 01/20/19 0856 1439 0916 Jeb Luz MD /nt
--- NOTE | 2019-01-20 14:45 | NUR ---
PT ADMITTED RELATED TO FEVER. CM REVIEWED CHART AND SPOKE WITH CARE TEAM. CM MET WITH PT AT BEDSIDE THIS DAY. PT IS A&O X4. CM ROLE INTRODUCED. PT INDICATED SHE HAD BEEN OVER AT [facility] SKILLED [facility]. PT INDICATED SHE PLANS TO RETURN THERE ONCE MEDICALLY STABLE. CM TO FOLLOW INDICATED WITH DC PLANNING.
[2019-01-20 15:00] VITALS: BP 123/67
--- NOTE | 2019-01-20 19:43 | NUR ---
Pt is confused and would takl to herself at times. Barrier cream placed on her buttom. left shoulder with an immobilizer, post op 3 weeks. Pt did have a fever medication given fever resolved. Pt has not had a bowel movement for this shift. Hydration promoted, small frequesnt feedings done through out the day. Pt refused ice packs for her shoulder. POC followed, daughter came to visit 2x and wants to talk to the doctor for updates. No further issues or complaints identified.
[2019-01-20 19:48] VITALS: BP 118/61
[2019-01-20 20:30] VITALS: BP 123/69
[2019-01-21 05:11] LABS: ABSOLUTE NEUTROPHILS 10.2 thou/uL (1.4-8.2); BASOPHILS 0.4 % (0.0-2.0); EOSINOPHILS 0.4 % (0.0-3.0); HEMATOCRIT 23.9 % (37.0-47.0); LYMPHOCYTES 12.1 % (24.0-44.0); MCH 29.4 pg (26.0-34.0); MCHC 33.5 g/dL (28.0-37.0); MCV 87.8 fL (80.0-100.0); MONOCYTES 10.5 % (1.0-8.0); PLATELET COUNT 233 thou/uL (150-400); POLYS 76.6 % (36.0-66.0); RBC 2.72 mil/uL (4.20-5.00); WBC 13.4 thou/uL (4.0-11.0)
[2019-01-21 05:22] LABS: CREATININE 0.7 mg/dL (0.6-1.0); POTASSIUM 3.5 mmol/L (3.5-5.1)
[2019-01-21 07:57] VITALS: BP 102/46
--- NOTE | 2019-01-21 08:13 | NUR ---
CARE ASSUMED AT 1900, PATIENT WAS SHORT OF AIR, WHEEZING AND LUNGS WERE COARSE. CALLED DR. MONCADA ORDER OF LASIX 40 MG, BREATHING TX, AND HOLD MAINTANCE FLUIDS. PATIENT TURNED Q 2 HOURS. PATIENT INCONTINENT THIS SHIFT PERICARE AND BARRIER CREAM APPLIED NEEDED. PAIN CONTROLLED THIS SHIFT. PATIENT HAD SHORTNESS OF AIR AT AROUND [address] MONCADA ORDER LASIX 40MG X1. BREATHING TREATMENT GIVEN. PATIENT IN BED ASLEEP AT THIS TIME BREATHING REGULAR AND UNLABOURED
[2019-01-21 14:25] VITALS: BP 101/53
--- NOTE | 2019-01-21 19:57 | NUR ---
Pt was more alert today compated to yesterday. IV fluids on hold as per night nurse. Pt was able to sit on the chair for most of the day and would transfer from the chair to the bed. Pt mentioned htat she prefers to have Ensure drinks and pudding for and during her meals orders put in. POC followed , mallory would like to speak to Dr. Cueva, office number given.
[2019-01-21 20:21] VITALS: BP 113/48
[2019-01-22 03:04] VITALS: BP 108/54
[2019-01-22 05:57] LABS: CALCIUM 8.2 mg/dL (8.5-10.1); CREATININE 0.7 mg/dL (0.6-1.0)
[2019-01-22 05:58] LABS: HEMATOCRIT 21.1 % (37.0-47.0); HEMOGLOBIN 7.2 gm/dL (12.0-15.0); MCH 29.2 pg (26.0-34.0); MCHC 34.1 g/dL (28.0-37.0); MCV 85.6 fL (80.0-100.0); PLATELET COUNT 245 thou/uL (150-400); RBC 2.47 mil/uL (4.20-5.00); RDW 15.8 % (10.5-14.5); WBC 12.7 thou/uL (4.0-11.0)
--- NOTE | 2019-01-22 06:00 | NUR ---
Pt. rested quietly at intervals during the night when checked on during frequent rounds. She became frustrated as she was not able to void. Bladder scanned at [address] Bojorquez called and notified with new order to st. cath. Prn tylenol given for elevated temperature (see emar) with relief. Bed alarm is on.
[2019-01-22 06:01] LABS: POTASSIUM 2.7 mmol/L (3.5-5.1)
[2019-01-22 06:26] LABS: ABSOLUTE NEUTROPHILS 9.3 thou/uL (1.4-8.2)
[2019-01-22 06:27] LABS: ANISOCYTOSIS 1+; PLATELET ESTIMATE NORMAL
[2019-01-22 07:45] VITALS: BP 106/49
--- NOTE | 2019-01-22 12:59 | NUR ---
I have reviewed the documentation by THEE PERSAUD from 01/22/19 to 01/22/19 and I concur with it. ROSALINO WHEELER
[2019-01-22 13:49] VITALS: BP 98/49
[2019-01-22 16:16] LABS: CALCIUM 8.5 mg/dL (8.5-10.1); CREATININE 0.6 mg/dL (0.6-1.0)
[2019-01-22 16:21] LABS: POTASSIUM 3.9 mmol/L (3.5-5.1)
--- NOTE | 2019-01-22 16:30 | NUR ---
PSTIENT CONTINUES ON IV ABX. CM TO FOLLOW INDICATED WITH DC PLANNING.
--- NOTE | 2019-01-22 17:31 | NUR ---
TOWARDS POC PT A/O X4. VSS, AFEBRILE. PAIN MANAGED BY MEDS. PT ABLE TO SIT ON THE CHAIR THIS PM. SHOULDER IMMOBILIZER IN PLACE. WILL CONTINUE TO MONITOR.
[2019-01-22 19:31] VITALS: BP 113/43
[2019-01-23 01:03] LABS: URINE BILIRUBIN NEGATIVE (Negative); URINE BLOOD TRACE (Negative); URINE CLARITY CLEAR; URINE COLOR YELLOW; URINE GLUCOSE-RANDOM* NEGATIVE (Negative); URINE KETONES 1+ (Negative); URINE LEUKOCYTES-REFLEX NEGATIVE (Negative); URINE NITRITE-REFLEX NEGATIVE (Negative); URINE PROTEIN (DIPSTICK) 1+ (Negative); URINE SPECIFIC GRAVITY 1.025 (1.005-1.035); URINE UROBILINOGEN 0.2 E.U./dl (0.2-1.0)
[2019-01-23 01:11] LABS: BACTERIA-REFLEX 1-9 Few /HPF (None Seen); CRYSTALS None Seen /LPF (None Seen); FINE GRANULAR CASTS 0-3 Few /LPF (None Seen); HYALINE CASTS 0-3 Few /LPF (None Seen); MUCUS 4-6 Moderate strn/LPF (None Seen); SQUAMOUS 0-3 Few /LPF (0-3); URINE RBC 0-2 Rare /HPF (0-2); URINE WBC-REFLEX 0-5 Rare /HPF (0-5)
[2019-01-23 04:04] VITALS: BP 132/58
[2019-01-23 04:21] LABS: CALCIUM 9.1 mg/dL (8.5-10.1); CREATININE 0.6 mg/dL (0.6-1.0); POTASSIUM 4.2 mmol/L (3.5-5.1)
[2019-01-23 04:40] LABS: BASOPHILS 0.2 % (0.0-2.0)
[2019-01-23 04:42] LABS: ABSOLUTE NEUTROPHILS 11.4 thou/uL (1.4-8.2); HEMATOCRIT 20.9 % (37.0-47.0); HEMOGLOBIN 7.1 gm/dL (12.0-15.0); MCH 29.1 pg (26.0-34.0); MCHC 33.7 g/dL (28.0-37.0); MCV 86.3 fL (80.0-100.0); PLATELET COUNT 292 thou/uL (150-400); POLYS 83.8 % (36.0-66.0); RBC 2.43 mil/uL (4.20-5.00); RDW 15.9 % (10.5-14.5); WBC 13.6 thou/uL (4.0-11.0)
[2019-01-23 08:35] VITALS: BP 124/60
--- NOTE | 2019-01-23 12:54 | NUR ---
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 ON RA AND SATURATION IS ABOVE 95%. PT OUT OF BED TO CHAIR WITH MAXIMUM ASSIT. MEDICINE GIVEN ORDERED. IV LINE PATENT. FLOMAX GIVEN WILL MONITOR OUTPUT. NO OUTPUT SO FAR. WILL BLADDER SCAN PT. REPOSITIONING PERFORMED ROUTINELY. PT DENIES PAIN. PT HAS OCCASIONAL SPASMS . HAS A L SHOULDER SLING DUE TO PREVIOUS SX IN SHOULDER. WILL CONTINUE TO MONITOR PT
--- NOTE | 2019-01-23 13:16 | NUR ---
DISCHARGE PLANNING. POST ACUTE RECOMMENED AT DISCHARGE. CLINICAL INFORMATION FAXED TO [facility]. CALL PLACED TO RADHA TO NOTIFY. PATIENT IS NOT MEDICALLY READY FOR DISCHARGE. [facility]HA AWARE. FOLLOWING TO ASSIST WITH DISCHARGE PLACEMENT NEEDS.
[2019-01-23 14:09] VITALS: BP 120/52
--- NOTE | 2019-01-23 15:43 | NUR ---
PT URINATED FIST FOR THIS SHIFT AT 1530 IN BEDSIDE COMMODE.
--- NOTE | 2019-01-23 15:48 | NUR ---
CLINICAL UPDATE SENT TO [facility]. PHYSICIAN INDICATED THAT PT MAY BE MEDICALLY STABLE TO DC OVER THE WEEKEND. CM TO FOLLOW INDICATED WITH DC PLANNING.
--- NOTE | 2019-01-23 18:19 | NUR ---
PT URINATED ON HER OWN TODAY. 450 CC. BLADDER SCAN AT 1800 SHOW 166 CC OF RETENTION. PT WAS NOT QUALIFIED FOR STRAIGHT CATH
[2019-01-23 20:30] VITALS: BP 135/52
--- NOTE | 2019-01-24 04:30 | NUR ---
PATIENT IS ALERT AND ORIENTED X 4. PT WAS ABLE TO GET COMFORTABLE AND SLEEP PART OF THE NIGHT. PATIENT BLADDER SCANNED Q6H DUE TO RETENTION. PATIENT WAS ABLE TO VOID ON HER OWN THIS SHIFT. ABX AND STEROID TREATMENT TO BE CONTINUED DAUGHTER (JOSSELYN) WOULD LIKE TO SPEAK TO ADMITTING DOC. PT WANTS TO GO HOME BUT HAS NO OTHER QUESTIONS OR CONCERNS AT THIS TIME. PATIENT IS PROGRESSING TOWARDS DC GOALS.
[2019-01-24 05:28] LABS: ABSOLUTE NEUTROPHILS 8.6 thou/uL (1.4-8.2); BASOPHILS 0.2 % (0.0-2.0); EOSINOPHILS 0.2 % (0.0-3.0); HEMATOCRIT 22.4 % (37.0-47.0); HEMOGLOBIN 7.8 gm/dL (12.0-15.0); LYMPHOCYTES 15.9 % (24.0-44.0); MCH 29.9 pg (26.0-34.0); MCHC 34.9 g/dL (28.0-37.0); MCV 85.5 fL (80.0-100.0); MONOCYTES 3.7 % (1.0-8.0); PLATELET COUNT 354 thou/uL (150-400); RBC 2.62 mil/uL (4.20-5.00); RDW 16.1 % (10.5-14.5); WBC 10.7 thou/uL (4.0-11.0)
[2019-01-24 05:36] LABS: CALCIUM 8.7 mg/dL (8.5-10.1); CREATININE 0.7 mg/dL (0.6-1.0)
[2019-01-24 05:45] VITALS: BP 133/68
[2019-01-24 08:08] VITALS: BP 149/68
[2019-01-24 14:27] VITALS: BP 130/61
--- NOTE | 2019-01-24 15:39 | NUR ---
PATIENT TRANSFERRED TO UNIT 1535. ORIENTED AND SETTLED TO UNIT. PATIENT CURRENTLY LYING IN BED WITH CALL LIGHT WITHIN REACH.
[2019-01-24 16:37] VITALS: BP 139/67
[2019-01-24 16:48] VITALS: BP 139/67
[2019-01-24 19:15] VITALS: BP 139/67
--- NOTE | 2019-01-25 02:17 | NUR ---
ASSUMED CARE OF PATIENT AT 1900. VSS. ASSESSMENT COMPLETED AT 2044 AND IS DOCUMENTED. NON-PITTING EDEMA NOTED TO BILAT HANDS, WITH LEFT HAND BEING LARGER THAN RIGHT. PT CONTINUES TO HAVE MUSCLE SPASMS WITH MOVEMENT. LUE IMMOBILIZER IN PLACE, PT TOLERATING WELL. PT UP WITH LUANN WALKER CANE X1 ASSIST TO BSC. PT HAS SLEPT WELL THROUGHOUT THE NIGHT AND IS CURRENTLY IN BED ASLEEP IN NO ACUTE DISTRESS. CALL LIGHT WITHIN REACH. BED LOCKED AND IN LOWEST POSITION. TM.
--- NOTE | 2019-01-25 04:25 | NUR ---
THIS NURSE AGREES WITH ASSESSMENT AND NOTES BY POST FRAMER ON THIS PATIENT.
[2019-01-25 06:11] LABS: HEMATOCRIT 22.4 % (37.0-47.0); HEMOGLOBIN 7.6 gm/dL (12.0-15.0); MCH 29.1 pg (26.0-34.0); MCHC 33.7 g/dL (28.0-37.0); MCV 86.4 fL (80.0-100.0); RBC 2.59 mil/uL (4.20-5.00); RDW 15.7 % (10.5-14.5); WBC 10.2 thou/uL (4.0-11.0)
[2019-01-25 06:18] LABS: CREATININE 0.7 mg/dL (0.6-1.0); POTASSIUM 3.9 mmol/L (3.5-5.1)
[2019-01-25 09:00] VITALS: BP 135/68
--- NOTE | 2019-01-25 11:34 | NUR ---
ASSUMED PATIENT AND CARES AT 0715, PATIENT WOKE IN BED WITH HOB ELEVATED, A&OX4, PAIN RATED 6/10 TO LEFT SHOULDER, LEFT SHOULDER IMMOBILIZER, PATIENT DID NOT RECEIVE ANY PAIN MEDICATION THROUGH THE NIGHT, RIGHT FOREARM INTACT AND PATENT PER FLUSH, EDEMA NOTED TO BUE, ASSIST X1 WITH TRANSFERS WITH LUANN WALKER CANE, PATIENT UP TO [facility] FOR TOILETING, PERSONAL BELONGINGS AND CALL LIGHT IN REACH, WILL CONTINUE TO MONITOR
--- NOTE | 2019-01-25 19:16 | NUR ---
I AGREE WITH NURSING ASSESSMENT DONE BY JESSICA/BAKARI, AND NURSING NOTE.
[2019-01-25 19:52] VITALS: BP 125/56
--- NOTE | 2019-01-26 03:43 | NUR ---
ASSUMED CARE OF PATIENT AT 1900. VSS. ASSESSMENT COMPLETED AT 1951 AND IS DOCUMENTED. HEAT APPLIED TO BILAT HANDS D/T SWELLING WITH MINIMAL DECREASE. PT STATES THAT SHE UTILIZES A POLAR PACK ON LEFT SHOULDER SINCE SX; OFFERED AN ICE PACK AND PT SAID SHE DIDN'T NEED IT AT THAT TIME. RIGHT AC IV PATENT AND SALINE LOCKED. PT CURRENTLY SLEEPING SOUNDLY IN BED IN NO ACUTE DISTRESS. CALL LIGHT WITHIN REACH. BED LOCKED AND IN LOWEST POSITION. WCTM.
--- NOTE | 2019-01-26 03:54 | NUR ---
THIS NURSE AGREES WITH ASSESSMENT AND NOTES BY ELECTRONIC ORGAN TECHNICIAN ON THIS PATIENT.
[2019-01-26 06:41] LABS: HEMATOCRIT 23.7 % (37.0-47.0); HEMOGLOBIN 7.7 gm/dL (12.0-15.0); MCH 28.6 pg (26.0-34.0); MCHC 32.7 g/dL (28.0-37.0); MCV 87.6 fL (80.0-100.0); RBC 2.7 mil/uL (4.20-5.00); RDW 15.6 % (10.5-14.5); WBC 11.4 thou/uL (4.0-11.0)
[2019-01-26] MEDS ORDERED: FLOMAX0.4 MG PO (06:42)
[2019-01-26] MEDS ORDERED: TRAMADOL 50 MG50 MG PO (06:43)
[2019-01-26] MEDS ORDERED: ACETAMINOPHEN325 M1 PO (06:43)
[2019-01-26] MEDS ORDERED: PREDNISONE 20 M20 M1 PO (06:45)
[2019-01-26] MEDS ORDERED: PREDNISONE 10 M10 MG PO (06:45)
[2019-01-26 09:15] VITALS: BP 156/81
--- NOTE | 2019-01-26 09:54 | NUR ---
ASSUMED PATIENT AND CARES AT 0715, PATIENT WOKE SITTING IN CHAIR, A&OX4, PAIN 5/10 AND WOULD LIKE TO WAIT BEFORE TAKING ANALGESIC, LUE IMMOBILIZER IN PLACE, RIGHT FOREARM IV INTACT AND PATENT PER FLUSH, FALL PRECAUTIONS IN PLACE, EDEMA TO BUE DECREASED NOTED, VITALS AND ASSESSMENT COMPLETED BEFORE MEDICATION GIVEN, NURSE TO SET UP DISCHARGE TO [facility] THIS DAY PER PHYSICIAN ORDER, PERSONAL BELONGINGS AND CALL LIGHT IN REACH, WILL CONTINUE TO MONITOR
--- NOTE | 2019-01-26 13:40 | NUR ---
PATIENT DISCHARGED TO [facility], PATIENT AWARE, REPORT CALL TO RECEIVING NURSE, DISCHARGE ORDERS AND SUMMARY FAXED TO [facility], CHART COPY AND ORDERS TO BE SENT WITH PATIENT, PATIENT DRESSED AND ALL BELONGINGS PACKED, RIGHT FOREARM IV REMOVED AND GAUZE AND TAPE PLACED, LUE IMMOBILIZER IN PLACE, [facility] TO PICK PATIENT UP AT 1330
--- NOTE | 2019-01-31 12:58 | HC ---
[facility] [place] [address] CONSULTATION Name: LOMELILINA R Room #: 223-P [facility] IN M.R.#: [id number] Admission: 01/17/19 ������������������ Attend Phys: Westley Cueva MD Discharge: 01/26/19 ������������������ Date of : 44 Report #: [id number] THIS REPORT FOR: //name// CC: Westley Urias ORTHOPEDIC CONSULTATION CHIEF COMPLAINT: Weakness, fever and lethargy. HISTORY OF PRESENT ILLNESS: The patient is a pleasant 78-year-old female who presented to the Emergency Department today from the senior living facility with a complaint of fever. The patient reportedly had a temperature measured of 100.6 per her report. Three days ago, she had a fever as well. She has been immobilized in her sling. She reports her shoulder has been feeling progressively better. She has not noted any drainage. The incision is otherwise well healed. She has not had any increased warmth, redness or pain about that and she reports that part has been feeling well. She reports her left little finger is somewhat sore and she has had some stiffness in her hand and some mild swelling. The patient reports that she has not been utilizing an incentive spirometer. She reports some mild malaise or lethargy, but otherwise did not report any other symptoms. She reports that she feels like her shoulder is doing well and she has not had any other concerns from that. PAST MEDICAL HISTORY: Hysterectomy, COPD, oral surgery, sinus surgery, shingles, hypertension, breast biopsy, cataracts, glaucoma, arthritis and pneumonia. MEDICATIONS: Current medications include cephalexin. Please see MAR for the remainder of medications. ALLERGIES: AVELOX. PHYSICAL EXAMINATION: VITAL SIGNS: Most recent temperature is 38.6, pulse 77, respirations 16, BP 97/48 and pulse ox 97% on room air. GENERAL: The patient is alert, oriented, answering questions appropriately. MUSCULOSKELETAL: She localizes no tenderness about the shoulder. Her incision is well healed. There is no drainage. Trace swelling, but nothing that would be out of proportion to approximate 2-week postoperative shoulder. There is some mild edema in the hand and she has some stiffness with range of motion. Sling was removed and we demonstrated some elbow, hand and wrist range of motion exercises that can be reinforced by physical therapy. She reported intact sensation. LABORATORY DATA: Laboratory data and microbiology was reviewed. [address] [address] CONSULTATION Name: YANILINA Ash Room #: 223-P [facility] IN M.R.#: [id number] Admission: 01/17/19 ������������������ Attend Phys: Westley Cueva MD Discharge: 01/26/19 ������������������ Date of : 42 Report #: [id number] IMPRESSION: Low-grade fever and malaise, possible respiratory tract infection/atelectasis versus urinary tract infection with recent left shoulder arthroplasty. PLAN: At this point, I do not have a strong indication of a shoulder infection. I would prefer to hold off on an aspiration of the joint, unless we feel like we can localize this more to the shoulder to reduce any potential risk of seeding the joint. The nurses brought in an incentive spirometer and we have again gone over utilization of this and we worked on incentive spirometer in the room today. I have encouraged more aggressive utilization of this to see if this helps from any potential pulmonary atelectasis that was noted on her chest x-ray. She may perform physical therapy and rehabilitation exercises on the shoulder. Dr. Luz of Infectious Disease has been consulted. My partner, Dr. Dlalin Chavez, will see her over the weekend and we will continue to follow with you. ��������������������������������������������� <ELECTRONICALLY SIGNED> ���������������������������������������� By: Suresh Zepeda MD ��������������������������������������������� 01/31/19 1258 1752 1434 Suresh Zepeda MD /nt
== END 2019-01-26 13:57 | DRG 864 ==
LOC: ER 11:04 → 4W 13:47 → EROBS 13:47 → 4W 16:14 → SICU 01-24 15:17
PROVIDERS: Nurse Practitioner Adult Health; Physician Assistant; ADMIT Internal Medicine
DX: R50.9 Fever, unspecified (principal); N39.0 Urinary tract infection, site not specified; E44.0 Moderate protein-calorie malnutrition; R33.9 Retention of urine, unspecified; D64.9 Anemia, unspecified; J44.9 Chronic obstructive pulmonary disease, unspecified; I10 Essential (primary) hypertension; H40.9 Unspecified glaucoma; M19.90 Unspecified osteoarthritis, unspecified site; E87.6 Hypokalemia; I95.9 Hypotension, unspecified; Z96.612 Presence of left artificial shoulder joint; D72.829 Elevated white blood cell count, unspecified; J45.909 Unspecified asthma, uncomplicated; M79.2 Neuralgia and neuritis, unspecified; Z90.710 Acquired absence of both cervix and uterus; Z98.42 Cataract extraction status, left eye; Z98.41 Cataract extraction status, right eye; Z88.1 Allergy status to other antibiotic agents; Z82.49 Family history of ischemic heart disease and other diseases of the circulatory system; Z79.899 Other long term (current) drug therapy; Z68.21 Body mass index [BMI] 21.0-21.9, adult
CPT/HCPCS: 10045; 15002

== ENCOUNTER 2020-09-28 20:35 | Inpatient (IN) | payer OTHER ==
[~2020-09-28] VITALS: Ht 165.1 cm; Wt 51.7 kg
[~2020-09-28 20:35] MED LIST changes: +ACETAMINOPHEN325 M1 PO; +BISACODYL SUPP10 MG RECTAL; +CARBAMOXIDE15 ML OTIC; +DORZOLAMIDE 2%10 ML OPHTHALMIC; +DUREZOL5 ML OPHTHALMIC; +FLOMAX0.4 MG PO; +MIRALAX17 GM PO; -NEURONTIN 300300 M1 PO; +NEURONTIN300 MG PO; +TRAMADOL 50 MG50 MG PO; +ZOFRAN ODT4 MG DISSOLVE
[2020-09-28 20:39] VITALS: BP 171/86
[2020-09-28] MEDS ORDERED: trelegy INH (21:43)
[2020-09-28] MEDS ORDERED: BACLOFEN 10MG T10 MG PO (21:46)
[2020-09-28 22:51] LABS: HEMATOCRIT 28.1 % (37.0-47.0); MCHC 49.7 g/dL (28.0-37.0); MCV 110.6 fL (80.0-100.0); PLATELET COUNT 294 thou/uL (150-400); RBC 2.54 mil/uL (4.20-5.00); RDW 14.2 % (10.5-14.5); WBC 4.8 thou/uL (4.0-11.0)
[2020-09-28 22:56] LABS: CALCIUM 9.6 mg/dL (8.5-10.1); CREATININE 0.8 mg/dL (0.6-1.0)
[2020-09-28 23:02] LABS: ALBUMIN 3.6 g/dL (3.4-5.0); TOTAL BILIRUBIN 0.7 mg/dL (0.2-1.0); TOTAL PROTEIN 7.3 g/dL (6.4-8.2)
[2020-09-29 00:15] LABS: ABSOLUTE NEUTROPHILS 1.9 thou/uL (1.4-8.2); ANISOCYTOSIS 1+; MACROCYTES 3+; PLATELET ESTIMATE NORMAL; POIKILOCYTOSIS 1+
--- NOTE | 2020-09-29 00:50 | NUR ---
tw daughter dr spence, at [phone], gave update on her mom.
[2020-09-29 10:16] VITALS: BP 113/72
--- NOTE | 2020-09-29 10:54 | NUR ---
[facility] [id number]
--- NOTE | 2020-09-29 12:20 | NUR ---
79-year-old female past medical history of COPD and asthma presenting today for evaluation of upper respiratory illness. Patient states that her symptoms started approximately 1 week ago with sinus congestion, which led to a postnasal drip, which is led to a cough, which is led to worsening shortness of breath over the last day. PCR COVID test came back negative on 09-29-2020. Patient resides with daughter in daughter's home. NOTE from previous 2019 admission patient discharged to [facility] level of care on 01-27-2020 under the care of Dr. Cueva. Patient has her daughter Joy Vásquez listed as her next of kin at [phone]. Spoke with daughter Joy on 09-29-2020 at 1214 and Daughter would like to be able to have mother return to her home. Noted that patient had been in a skilled bed when discharged on 01-27-2020 and explained pending evaluation, treatment and therapy evaluations will determine patients discharge needs to either home or skilled environment. Explained that CM will be following her mothers case and will be in touch as discharge needs are identified. Daughter voiced an understanding.
[2020-09-29 14:30] VITALS: BP 113/72
[2020-09-29 16:06] VITALS: BP 113/72
[2020-09-29 18:11] VITALS: BP 00/00
--- NOTE | 2020-09-29 19:07 | NUR ---
PT ADMITED FROM ER. ADMISSION HX AND ASSESSMENT COMPLETED. PT ORIENTED TO THE ROOM AND THE CALL LIGHT SYSTEM. NEW ORDERS NOTED. NO CONCERNS AT THIS TIME
[2020-09-29 19:36] VITALS: BP 113/56
[2020-09-29 23:18] VITALS: BP 113/56
[2020-09-30 04:45] VITALS: BP 120/64
[2020-09-30 04:50] LABS: CREATININE 0.7 mg/dL (0.6-1.0); POTASSIUM 4.1 mmol/L (3.5-5.1)
[2020-09-30 05:04] LABS: HEMOGLOBIN 12.5 gm/dL (12.0-15.0); MCH 47.3 pg (26.0-34.0); MCV 109.9 fL (80.0-100.0); RBC 2.64 mil/uL (4.20-5.00); RDW 13.9 % (10.5-14.5); WBC 4.8 thou/uL (4.0-11.0)
--- NOTE | 2020-09-30 08:16 | NUR ---
PT AOX4. PT DENIES PAIN AND SOB WHILE ALTERNATING BETWEEN ROOM AIR AND 2L O2 VIA NC. PT TOLERATING PO INTAKE OF FLUIDS WITHOUT ISSUE. PT DENIES NAUSEA. PT AMBULATING WITH STANDBY ASSIST AND WALKER TO BATHROOM. PT RESTING IN BED THROUGHOUT SHIFT, FREQUENT REPOSITIONING ENCOURAGED. PT NOTED TO SHIFT INDEPENDENTLY WHILE IN BED. PT ENCOURAGED TO NOTIFY STAFF FOR ALL NEEDS, CALL LIGHT WITHIN REACH, BED ALARM ON, BED IN LOWEST POSITION, FREQUENT MONITORING WILL CONTINUE.
[2020-09-30 09:06] VITALS: BP 115/59
[2020-09-30 13:38] VITALS: BP 113/58
--- NOTE | 2020-09-30 16:25 | NUR ---
Patient resides with dtr at home. Therapy evals ordered to assist with dc planning.
[2020-09-30 17:00] VITALS: BP 109/67
--- NOTE | 2020-09-30 18:09 | NUR ---
RECEIVED PT'S CARE AROUND 727; PT. ON BED; ALERT; DURING AM ASSESSMENT PT. AOX4; NO C/O PAIN; AM MEDICATIONS GIVEN; UP TO CHAIR; NOTICED COUGHING AND HARD TIME SWALLOWING PILLS; ST CONSULT; PER ST NO STRAWS; SR ON THE MONITOR; ABLE TO REST DURING THE AFTERNOON; BACK TO BED DURING THE AFTERNOON; EDUCATED ABOUT FALL PRECAUTIONS; ASSESSMENT CHARGED; FOLLOWING POC; WILL PASS ON REPORT;
[2020-09-30 19:30] VITALS: BP 98/54
[2020-10-01 04:00] VITALS: BP 115/63
--- NOTE | 2020-10-01 04:02 | NUR ---
PT IS ALERT AND ORIENTED X4. LUNGS WHERE WHEEZY BUT AFTER BREATHING TREATMENT. CLEAR TO DIMINISHED. SLIGHT DRY HACKY COUGH NOTED THIS AM. ABDOMEN IS ROUND SOFT BOWEL SOUNDS ACTIVE. SINUS RHYTHM ON THE REVENUE CYCLE ANALYST VS STABLE. DENIES ANY COMPLAINTS OF PAIN NOTED. O2 AT 2 LITERS PER NASAL CANULA. SOB WITH ACTIVITY. WILL CONTINUE TO MONITOR AND ASSESS PER NIKHIL.
--- NOTE | 2020-10-01 05:16 | NUR ---
PT IS PLEASANT ON O2 AT 2 LITERS NASAL CANULA. ORIENTED X4. DENIES ANY PAIN ISSUES. IV CAME OUT SO NURSING RESTARTED IT FOR HER FL CARE PER NURSING. PT GETING ANTIBIOTICS SO HAD TO RESTART IV AT THIS TIME. PT GETS SOB WITH CARE.
[2020-10-01 08:00] VITALS: BP 137/67
[2020-10-01 12:00] VITALS: BP 109/56
[2020-10-01 15:35] VITALS: BP 98/52
--- NOTE | 2020-10-01 16:15 | NUR ---
PT. IS RESTING THIS AFTERNOON WAS COUGHING IN THE AM ALOT BUT THIS HAS RESOLVED FOR NOW. ON 2L NC AND STABLE VITAL SIGN'S. ON IV ANTIBIOTICS AND SAID SHE HAS SUFFERED FOR YEARS WITH SINUS ISSUES, DENTAL SURGERY ON HER UPPER TEETH RELATED TO SUCH AND THIS IS AN ONGOING ISSUE FOR HER. CALM AND VERY PLEASANT DEMEANOR OVERALL, WATCHING TV. STABLE VS.
[2020-10-01 19:55] VITALS: BP 114/46
[2020-10-02 04:40] VITALS: BP 100/57
[2020-10-02 06:52] LABS: HEMATOCRIT 33.1 % (37.0-47.0); HEMOGLOBIN 12.8 gm/dL (12.0-15.0); MCH 41.1 pg (26.0-34.0); MCHC 38.7 g/dL (28.0-37.0); MCV 106.1 fL (80.0-100.0); PLATELET COUNT 325 thou/uL (150-400); RBC 3.12 mil/uL (4.20-5.00); RDW 13.8 % (10.5-14.5)
[2020-10-02 07:00] VITALS: BP 124/76
[2020-10-02 07:07] LABS: ALBUMIN 2.8 g/dL (3.4-5.0); CALCIUM 9.7 mg/dL (8.5-10.1); CREATININE 0.6 mg/dL (0.6-1.0); MAGNESIUM 2.3 mg/dL (1.8-2.4); POTASSIUM 4.8 mmol/L (3.5-5.1); TOTAL BILIRUBIN 0.3 mg/dL (0.2-1.0); TOTAL PROTEIN 6.2 g/dL (6.4-8.2)
--- NOTE | 2020-10-02 07:42 | NUR ---
ASSUME CARE 1900. PT/VITALS STABLE. DENIES ANY PAIN. GOOD ENDURANCETO ACTIVITY WITH MILD SOB NOTED WITH ACTIVITY. COUGHING NOTED WITH WHITE FROTHY SPUTUM AND INSPIRATORY WHEEZING. NO DISTRESS NOTED THROUGH THE NIGHT. SR ON MONITOR WITH CONTROLLED HR. 2LNC FOR IMPROVED OXYGENATION. ASSESSMENT CHARTED. PROGRESSING WELL WITH POC. PLAN IS TO CONTINUE TREATMENT WITH STEROIDS AND ABX THERAPY AND MONITOR RESPIRATORY FUNCTION FOR IMPROVEMENT. WILL CONTINUE TO MONITOR AND FOLLOW WITH POC
[2020-10-02 11:00] VITALS: BP 117/61
[2020-10-02 16:00] VITALS: BP 108/64
--- NOTE | 2020-10-02 18:30 | NUR ---
ASSUMED CARE PT SHIFT CHANGE. ASSESSMETNS CHARTED. MEDS GIVEN PER NOV. PT ALERT AND ORIENTED VSS DENIES PAIN O2 SATS WNL ON 2L AND ROOM AIR PT CURRENLTY ROOM AIR. PT UP SBA TOLERATING WELL. WORKED WITH PHYS THERAPY TOLERATING VERY WELL. APPETITE ADEQUATE. PLAN FOR DC HOME ONCE MEDICALLY STABLE. PT CURRENLTY RESTINGIN BED DENIES NEEDS CONCERNS .WILL CONT TO MONITOR PT AND FOLLOW POC. WILL PASS ON REPORT TO NOC RN
[2020-10-02 19:00] VITALS: BP 114/59
[2020-10-03 04:00] VITALS: BP 114/63
--- NOTE | 2020-10-03 05:02 | HC ---
[facility] [place] [address] CONSULTATION Name: LINA LOMELI Room #: 217-P ADM IN M.R.#: [id number] Admission: 09/29/20 Attend Phys: Stu Bush Discharge: Date of : 42 Report #: [id number] THIS REPORT FOR: cc: Dallin Urias MD, David A. MD Barry, Joseph W. MD ~ DATE OF SERVICE: 10/02/2020 INFECTIOUS DISEASE CONSULTATION ATTENDING PHYSICIAN: Dr. Bush. REASON FOR EVALUATION: Chronic sinusitis with isolation of Pseudomonas aeruginosa. HISTORY OF PRESENT ILLNESS: Chart reviewed, patient examined. This is a 79-year-old woman with longstanding history of sinus disease including infections. She has had extensive oral surgery due to the above with extractions involving the upper teeth, also has underlying COPD, has been ill dating several months. She was evaluated, she believes in March or March of 2020 and was felt to have an infectious sinusitis was treated with antibiotics as well as corticosteroids. She notes over the last 3 weeks has had increasing dyspnea. She does have underlying COPD, although she does not require supplemental oxygen at home. She has had intermittent cough, somewhat productive often with colored sputum. She is evaluated in the Emergency Room, felt to be hypoxic, was placed on supplemental oxygen 2 liters per nasal cannula. The evaluation included chest x-ray, which noted no acute abnormalities. COVID testing was negative including antigens as well as PCR. Procalcitonin was negative. CT of the sinuses did show lyle opacity involving all the sinuses. She did have a culture described as nasopharyngeal with growth of Pseudomonas aeruginosa, awaiting susceptibilities. She has not had any recent fevers. She denies significant GI related complaints. ALLERGIES: MOXIFLOXACIN DESCRIBED CAUSING A RASH ROUGHLY 4 YEARS AGO. CURRENT MEDICATIONS: Include prednisone, multivitamin, calcium carbonate, montelukast, fluticasone, baclofen, gabapentin, acetaminophen, levofloxacin, ondansetron as needed. PAST MEDICAL HISTORY: As described above; COPD, history of complex sinus disease with previous surgeries, has had dental surgery result the above as well, hypertension, glaucoma, severe osteoarthritis, previous left shoulder replacement. SOCIAL HISTORY: Nonsmoker, no ethanol, no illicit drug use. [address] [address] CONSULTATION Name: LINA LOMELI Room #: 217-P [facility] IN M.R.#: [id number] Admission: 09/29/20 Attend Phys: Stu Bush Discharge: Date of : 42 Report #: [id number] FAMILY HISTORY: Noncontributory. REVIEW OF SYSTEMS: Otherwise, unremarkable 10-point review of systems. PHYSICAL EXAMINATION: GENERAL: She appears somewhat undernourished. She is pleasant, cooperative. She is lucid. VITAL SIGNS: Temperature 98.3, pulse 60, respirations 16, blood pressure 100/57. SKIN: Warm, dry, no rashes. HEENT: Normocephalic. Extraocular muscles are intact. NECK: Supple. There is some tenderness over the maxillary sites. LUNGS: There are some wheezes, decreased overall air exchange. Few scattered crackles. HEART: Regular. I do not appreciate murmur. ABDOMEN: Soft, nontender, nondistended. EXTREMITIES: No cyanosis. GENITOURINARY AND RECTAL: Deferred. LABORATORY DATA: CBC: White count 6.0, H and H 12.8 and 33.1, platelets of 325 this morning. Electrolytes; sodium 141, potassium 4.8, chloride 108, bicarbonate is 29, anion gap of 4, BUN and creatinine 14 and 0.6, glucose of 116. AST of 33, ALT of 18, albumin 2.8, total protein 6.2. Estimated GFR of 117. Cultures described above with many Pseudomonas aeruginosa. CT of the sinus showed diffuse opacification of the maxillary, ethmoid, sphenoid and frontal sinuses. ASSESSMENT AND PLAN: Chronic sinusitis complicated by acute bacterial infection, isolation of Pseudomonas. We will add parenteral therapy, noted she apparently is tolerating levofloxacin. We will await susceptibility testing. She notes this has been initiated for the last several months, may well need to have an extended course of therapy. At this point, she is not overtly toxic. We will continue pulmonary toilet as described and add incentive spirometry. Noted Otolaryngology evaluation, potentially have an additional surgery. <ELECTRONICALLY SIGNED> By: Say Werner MD 10/03/20 0502 0724 0750 Say Werner MD /nt
[2020-10-03 07:53] VITALS: BP 121/75
--- NOTE | 2020-10-03 08:03 | NUR ---
ASSUMED PATIENT CARE AT 1845. VITAL SIGNS STABLE WITH PATIENT HAVING NO COMPLAINTS OF PAIN OR NAUSEA. BREATHING STABLE ON OXYGEN EVIDENCED BY ASSESSMENTS AND SPOT OXYGENATION CHECKS. FULLY ORIENTED, PATIENT IS ABLE TO CALL APPROPRIATELY FOR NEEDS AND PARTICIPATE IN CARE. UP MULTIPLE TIMES WITH ASSISTANCE INCIDENT FREE. PATIENT IS STRONG AND BALANCED WHEN AMBULATING WITH WALKER. CONTINUE PLAN OF CARE.
[2020-10-03 13:15] VITALS: BP 116/67
[2020-10-03 17:25] VITALS: BP 126/84
[2020-10-03 19:31] VITALS: BP 113/73
[2020-10-04 04:17] LABS: CALCIUM 9.2 mg/dL (8.5-10.1); CREATININE 0.8 mg/dL (0.6-1.0); POTASSIUM 3.9 mmol/L (3.5-5.1)
[2020-10-04 04:45] VITALS: BP 118/64
--- NOTE | 2020-10-04 07:33 | NUR ---
PATIENTS CARES WERE ASSUMED AT SHIFT CHANGE. 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 PATIENT HAS BEEN DOWN GRADED AND IS TRANSFERING TO ROOM 450.
--- NOTE | 2020-10-04 08:38 | NUR ---
PT CARE ASSUMED AT 0700. REPORT RECIEVED, PT TRANSFERRED TO [facility] AT 0730. LFA IV. SINUS RHYTHM. ROOM AIR, DIMINISHED, NPC. SBA.
--- NOTE | 2020-10-04 11:09 | NUR ---
ASSUMED PT CARE UPON TRANSFER FROM . PT A&OX4. PT IS COOPERATIVE WITH STAFF AND MAKES NEEDS KNOWN. PT HAS A CONGESTED COUGH. TOOK MEDS WELL THIS AM WITH APPLESAUCE. SWALLOW STUDY COMPLETED THIS AM. IV PATENT, MEDS INFUSED WELL. NO COMPLAINTS OF PAIN.
--- NOTE | 2020-10-04 14:31 | NUR ---
PT HAS BEEN SEEN BY THERAPIES. IT LOOKS THOUGH PT WILL LIKELY PROGRESS TO BE SAFE TO RETURN HOME WITH HH ONCE MEDICALLY STABLE. ST PUT PT ON MECHSFT DIET THIN LIQUID. PT CONTINUES ON IV ABX MEROPENEM Q12. CM FOLLOWING REGARDING DC PLANNING.
[2020-10-04 14:46] VITALS: BP 112/67
[2020-10-04 19:37] VITALS: BP 110/54
--- NOTE | 2020-10-05 03:00 | NUR ---
PT CARE ASSUMED AT 1900 WITH PT IN BED WATCHING TV.PT IS A/O X4.PT IS UP WITH STANDBY ASSIST TO THE RESTROOM.PT IS CONGESTED AND ON ROOM AIR.IV ON RFA SL.PT TAKES MEDS WHOLE IN APPLESAUCE.PT IS A/O AND ABLE TO CALL APPROPRIETELY.WILL CONTINUE TO MONITOR POC
[2020-10-05 07:37] VITALS: BP 136/54
[2020-10-05] MEDS ORDERED: PEPCID20 MG PO (11:11)
[2020-10-05] MEDS ORDERED: LEVOFLOXACIN500 MG PO (11:11)
[2020-10-05] MEDS ORDERED: PREDNISONE 20 M20 M1 PO (11:11)
--- NOTE | 2020-10-05 11:52 | NUR ---
ASSUMED PT CARE THIS AM. PT COMPLAINTS OF SINUS PRESSURE IN HER NASAL AND ORAL CAVITY. PT IS CONTINENT, AND AMBULATES WELL TO THE BATHROOM. PT MAKE SNEEDS KNOWN AND CALLS APPROPRIATELY. PT HAS A CONGESTED COUGH WITH THICK SPUTUM. EATING WELL, FLUIDS ENCOURAGED. IV PATENT, MEDS INFUSED.
--- NOTE | 2020-10-05 13:24 | NUR ---
FAXED REFERRAL TO [facility] SPOKE WITH KEENA IN INTAKE SHE RECEIVED REFERRAL AND WILL ACCEPT AT [place].
[2020-10-05 13:26] VITALS: BP 136/54
--- NOTE | 2020-10-05 16:20 | NUR ---
CARE TEAM INDICATED THAT PT IS MEDICALLY STABLE TO DC HOME THIS DAY. CM FOLLOWED UP WITH PT ABOUT HH IT IS BEING RECOMMENDED AND PT INDICATED THAT SHE CAN'T GO HOME TODAY THAT HER DTR TOOK HER HOUSE KEYS AND SHE IS OUT OF TOWN THIS EVENING AND CAN'T PICK PT UP OR LET HER INTO THE HOME. CM NOTIFIED PHYSICAN. [facility] IS ABLE TO ACCEPT PT FOR SERVICES UPON DC. CM GOT A HOLD OF DTR AND SHE CONFIRMED THE ABOVE. SHE INDICATED THAT SHE CAN PICK PT UP TOMORROW AROUND 1700.
[2020-10-05 19:19] VITALS: BP 105/60
--- NOTE | 2020-10-06 02:49 | NUR ---
PT CARE ASSUMED WITH PT IN BED WATCHING TV.PT IS A/O X4.PT IS UP WITH STANDBY ASSIST TO THE BATHROOM.PT APPEAR TO BE IN NO ACUTE DISTRESS DURING SHIFT.PALN D/C TODAY TO HOME.WILL CONTINUE TO MONITOR
[2020-10-06 07:50] VITALS: BP 135/70
[2020-10-06] MEDS ORDERED: IPRAT-ALBUT 0.5-3 ML NEB (10:36)
[2020-10-06] MEDS ORDERED: MUCINEX600 MG PO (15:21)
--- NOTE | 2020-10-06 19:31 | NUR ---
ASSUMED CARE OF THE PATIENT AT 0715, PATIENT ALERT AND ORIENTED X 4. PATIENT UP WITH SBA WITH CANE. PATIENT C/O PRESSURE PAIN WITH SINUES, CONGESTED COUGH. C/O SOB, RECEIVED A BREATHING TREATMENT. VSS BLOOD SUGAR CHECK DUE TO IV STEROIDS. PATIENT DISCHARGED TO HOME AT 1815, WITH HOME HEALTH. RIGHT FOREARM IV REMOVED PRIOR TO DISCHARGE. DAUGHTER HERE TO EMBROIDERY WORKER THE PATIENT. PATIENT TAKES MEDS WITH APPLESAUCE. ALL DISCHARGE PAPER WORK AND ALL PERSONAL BELONGINGS SENT WITH THE PATIENT.
== END 2020-10-06 18:17 | disposition home health service (06) | DRG 189 ==
LOC: ER 20:35 → 2N 09-29 00:58 → EROBS 09-29 00:58 → 2N 09-29 17:33 → EROBS 09-29 18:10 → 2N 09-29 18:12 → 4W 10-04 08:10
PROVIDERS: Emergency Medicine; Internal Medicine; ADMIT Hospitalist; ATTEND Hospitalist
DX: J96.01 Acute respiratory failure with hypoxia (principal); J44.1 Chronic obstructive pulmonary disease with (acute) exacerbation; Z68.1 Body mass index [BMI] 19.9 or less, adult; J01.40 Acute pansinusitis, unspecified; B96.5 Pseudomonas (aeruginosa) (mallei) (pseudomallei) as the cause of diseases classified elsewhere; I10 Essential (primary) hypertension; M19.90 Unspecified osteoarthritis, unspecified site; Z96.612 Presence of left artificial shoulder joint; E87.6 Hypokalemia; M81.0 Age-related osteoporosis without current pathological fracture; R63.4 Abnormal weight loss; D53.9 Nutritional anemia, unspecified; G89.29 Other chronic pain; R13.10 Dysphagia, unspecified; Z20.822 Contact with and (suspected) exposure to COVID-19; B96.89 Other specified bacterial agents as the cause of diseases classified elsewhere; J32.4 Chronic pansinusitis; Z79.899 Other long term (current) drug therapy; Z90.710 Acquired absence of both cervix and uterus; Z98.42 Cataract extraction status, left eye; Z98.41 Cataract extraction status, right eye; Z87.01 Personal history of pneumonia (recurrent); Z88.1 Allergy status to other antibiotic agents; Z88.8 Allergy status to other drugs, medicaments and biological substances; Z82.49 Family history of ischemic heart disease and other diseases of the circulatory system
CPT/HCPCS: 10040; 10081

== ENCOUNTER 2020-10-26 18:39 | Emergency (ER) | payer OTHER ==
[~2020-10-26] VITALS: Ht 165.1 cm; Wt 72.6 kg
[~2020-10-26 18:39] MED LIST changes: +BACLOFEN 10MG T10 MG PO; +IPRAT-ALBUT 0.5-3 ML NEB; +LEVOFLOXACIN500 MG PO; +MUCINEX600 MG PO; +PEPCID20 MG PO; +trelegy INH
[2020-10-26 21:36] LABS: ABSOLUTE NEUTROPHILS 4.3 thou/uL (1.4-8.2); BASOPHILS 0.8 % (0.0-2.0); EOSINOPHILS 1.2 % (0.0-3.0); HEMATOCRIT 37.9 % (37.0-47.0); HEMOGLOBIN 12.6 gm/dL (12.0-15.0); LYMPHOCYTES 21.7 % (24.0-44.0); MCH 31.9 pg (26.0-34.0); MCHC 33.4 g/dL (28.0-37.0); MCV 95.6 fL (80.0-100.0); MONOCYTES 8.6 % (1.0-8.0); PLATELET COUNT 232 thou/uL (150-400); POLYS 67.7 % (36.0-66.0); RBC 3.96 mil/uL (4.20-5.00); RDW 14.8 % (10.5-14.5); WBC 6.3 thou/uL (4.0-11.0)
[2020-10-26 21:43] LABS: CREATININE 0.7 mg/dL (0.6-1.0); POTASSIUM 4.1 mmol/L (3.5-5.1)
[2020-10-26 21:50] LABS: TOTAL BILIRUBIN 0.4 mg/dL (0.2-1.0); TOTAL PROTEIN 5.9 g/dL (6.4-8.2)
[2020-10-26 22:03] VITALS: BP 146/68
== END 2020-10-26 22:10 | disposition home or self-care (01) ==
LOC: ER 18:39
PROVIDERS: Nurse Practitioner
DX: R60.0 Localized edema (principal); J44.9 Chronic obstructive pulmonary disease, unspecified; I10 Essential (primary) hypertension; M19.90 Unspecified osteoarthritis, unspecified site; Z96.611 Presence of right artificial shoulder joint; Z98.890 Other specified postprocedural states; Z90.711 Acquired absence of uterus with remaining cervical stump; Z79.2 Long term (current) use of antibiotics; Z79.899 Other long term (current) drug therapy; Z88.1 Allergy status to other antibiotic agents; Z91.018 Allergy to other foods

== ENCOUNTER → 2020-11-19 | Outpatient (CLI) | payer OTHER ==
[2020-11-19 10:01] LABS: HEMATOCRIT 38.3 % (37.0-47.0); HEMOGLOBIN 12.8 gm/dL (12.0-15.0); MCH 32.5 pg (26.0-34.0); MCHC 33.4 g/dL (28.0-37.0); MCV 97.2 fL (80.0-100.0); RBC 3.94 mil/uL (4.20-5.00); RDW 14.4 % (10.5-14.5)
[2020-11-19 10:18] LABS: ALBUMIN 3.4 g/dL (3.4-5.0); CREATININE 0.8 mg/dL (0.6-1.0); POTASSIUM 3.9 mmol/L (3.5-5.1); TOTAL BILIRUBIN 0.5 mg/dL (0.2-1.0); TOTAL PROTEIN 6.5 g/dL (6.4-8.2)
--- NOTE | 2020-11-19 12:35 | EKG ---
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
== END ==
LOC: CV 09:23
PROVIDERS: ATTEND Otolaryngology Plastic Surgery within the Head & Neck
DX: J32.9 Chronic sinusitis, unspecified (principal); I49.9 Cardiac arrhythmia, unspecified

== ENCOUNTER 2021-02-18 06:15 | Inpatient (IN) | payer OTHER ==
[~2021-02-18] VITALS: Ht 165.1 cm; Wt 53.5 kg
[2021-02-18 06:23] VITALS: BP 136/69
[2021-02-18 06:53] LABS: ABSOLUTE NEUTROPHILS 5.6 thou/uL (1.4-8.2); BASOPHILS 0.5 % (0.0-2.0); EOSINOPHILS 13.7 % (0.0-3.0); HEMATOCRIT 36.4 % (37.0-47.0); HEMOGLOBIN 13.3 gm/dL (12.0-15.0); LYMPHOCYTES 12.3 % (24.0-44.0); MCH 36.4 pg (26.0-34.0); MCHC 36.6 g/dL (28.0-37.0); MCV 99.5 fL (80.0-100.0); MONOCYTES 13.5 % (1.0-8.0); PLATELET COUNT 318 thou/uL (150-400); RBC 3.66 mil/uL (4.20-5.00); RDW 14.6 % (10.5-14.5); WBC 9.4 thou/uL (4.0-11.0)
[2021-02-18 06:57] LABS: APTT 27.3 Seconds (24.5-32.8); INR 1.07; PROTIME 11.6 Seconds (10.5-12.1)
[2021-02-18 07:01] LABS: ANION GAP 11 mmol/L (7-16); BUN 19 mg/dL (7-18); CALCIUM 9.4 mg/dL (8.5-10.1); CHLORIDE 97 mmol/L (98-107); CO2 27 mmol/L (21-32); CREATININE 0.9 mg/dL (0.6-1.0); GLUCOSE 113 mg/dL (74-106); POTASSIUM 3.1 mmol/L (3.5-5.1); SODIUM 135 mmol/L (136-145)
[2021-02-18 07:07] LABS: ALBUMIN 3.1 g/dL (3.4-5.0); SGOT 26 U/L (15-37); SGPT 23 U/L (14-59); TOTAL BILIRUBIN 0.7 mg/dL (0.2-1.0); TOTAL PROTEIN 7.8 g/dL (6.4-8.2); TROPONIN-I <0.06 ng/mL (<0.06)
--- NOTE | 2021-02-18 07:10 | NUR ---
TOOK OVER CARE FROM REGINE GALARZA AT THIS TIME
[2021-02-18 07:12] LABS: URINE BLOOD NEGATIVE (Negative); URINE CLARITY CLEAR; URINE COLOR YELLOW; URINE GLUCOSE-RANDOM* NEGATIVE (Negative); URINE KETONES 1+ (Negative); URINE LEUKOCYTES-REFLEX NEGATIVE (Negative); URINE NITRITE-REFLEX NEGATIVE (Negative); URINE PROTEIN (DIPSTICK) TRACE (Negative); URINE SPECIFIC GRAVITY 1.025 (1.005-1.035)
[2021-02-18 07:19] LABS: ICTOTEST (BILI CONFIRMATORY) Negative (Negative); URINE BILIRUBIN NEGATIVE (Negative)
--- NOTE | 2021-02-18 07:43 | NUR ---
RT BACK AT BEDSIDE TO GIVE PT ANOTHER BREATHING TX AT THIS TIME.
--- NOTE | 2021-02-18 08:27 | NUR ---
ED PROVIDER GOING OVER CARE PLAN WITH PT AND PT DAUGHTER AT THIS TIME
[2021-02-18 17:31] VITALS: BP 131/53
--- NOTE | 2021-02-18 17:35 | NUR ---
REPORT GIVEN TO REGINE MABRY AT THIS TIME
[2021-02-18 20:15] VITALS: BP 121/52
--- NOTE | 2021-02-18 20:39 | NUR ---
PT IS ALERT AND ORIENTED X4. PT IS A FALL AT RISK INSTRUCTED ON FALL PRECAUTIONS YELLLOW SOCKS ON AND ARM BAND ON AND INSTRUCTED TO USE THE CALL LIGHT FOR ASSISTANCE. REPORTS A COUGH AND SOB HAS COPD EXACERBATION FOR ADMISSION AT THIS TIME. NO CONCERNS NOTED AT THIS TIME. WITH ADMISION
--- NOTE | 2021-02-19 02:51 | NUR ---
PT IS ALERT AND ORIENTED X4. RESTING REQUESTED A SNAK GRAM CRACCKERS GIVEN TO PT. LUNGS ARE CLEAR TO RHONCHI IN BASE. 2 LITERS O2 ON PT AT THIS TIME. ABDOMEN IS FLAT. NONTENDERS. PLAN OF CARE DISCUSSED WITH PT AT THIS TIME. CALL LIGHT WITHIN REACH IF NEEDS ASSISTANCE AND CALLS APPORPRIATELY. ONGING NURSING CARE AT THIS TIME.
[2021-02-19 04:45] VITALS: BP 137/50
[2021-02-19 04:49] LABS: HEMATOCRIT 30.9 % (37.0-47.0); MCH 40.1 pg (26.0-34.0); MCHC 38.9 g/dL (28.0-37.0); MCV 103.3 fL (80.0-100.0); RBC 2.99 mil/uL (4.20-5.00); RDW 14.6 % (10.5-14.5)
[2021-02-19 05:13] LABS: CALCIUM 9.3 mg/dL (8.5-10.1); CREATININE 0.7 mg/dL (0.6-1.0)
[2021-02-19 05:19] LABS: POTASSIUM 4.2 mmol/L (3.5-5.1)
--- NOTE | 2021-02-19 05:32 | NUR ---
pt transfered to room 455 and report given to RN to assume care. Transfered with all belonging to the room for transfer. No issues or concerns noted at this time.
[2021-02-19 07:30] VITALS: BP 117/58
--- NOTE | 2021-02-19 10:29 | NUR ---
ASSUMED PT CARE THIS AM. PT IS ALERT & ORIENTED X4. PT HAS IV SITE ON R FA 20 GAUGE. PT IS UP WITH ASSIST X1 AND USES WALKER. PT HAS BACK BRACE. PT RATED PAIN 4/10 ON THE BACK BUT REFUSED PAIN MEDICATION. PT TOLERATED DIET AND MEDICATION THIS AM. NO C/O OF PAIN, NAUSEA AND VOMITING. PT ON THE CHAIR WATCHING TV. WILL CONTINUE TO MONITOR PT. FOLLOW POC.
[2021-02-19 15:55] VITALS: BP 109/62
[2021-02-19 19:46] VITALS: BP 126/46
[2021-02-20 04:53] LABS: HEMATOCRIT 32.9 % (37.0-47.0); HEMOGLOBIN 11.7 gm/dL (12.0-15.0); MCH 35.7 pg (26.0-34.0); MCHC 35.5 g/dL (28.0-37.0); MCV 100.6 fL (80.0-100.0); RBC 3.27 mil/uL (4.20-5.00); RDW 14.8 % (10.5-14.5); WBC 8.3 thou/uL (4.0-11.0)
[2021-02-20 05:08] LABS: CREATININE 0.9 mg/dL (0.6-1.0); POTASSIUM 4.1 mmol/L (3.5-5.1)
--- NOTE | 2021-02-20 07:36 | NUR ---
Assumed pt care at 1900. A/OX4,VSS. Up with AX1,GB/RW. C/o pain to lower back, order obtained for Tramadol 50mg Q6 PRN,administered with some relief reported.LS with wheezes,nebs given as ordered. SR on telemetry. Fall precautions in place,calls approp for help.
[2021-02-20 08:08] VITALS: BP 125/59
--- NOTE | 2021-02-20 11:26 | NUR ---
ASSUMED PT CARE THIS AM. PT IS ALERT & ORIENTED X4. REMOVED IV SITE DUE TO INFILTRATION. PT HAS IV SITE ON R FA 22 GAUGE. PT ON TELE MONITOR ON. PT HAS BACK BRACE. PT DENIES PAIN, NAUSEA AND VOMITING. PT TOLERATED MEDICATION AND DIET THIS WELL. PT ON THE BED, BED ON THE LOWEST POSITION, SIDE RAILS UP, CALL LIGHT WITHIN REACH. WILL CONTINUE TO MONITOR PT. FOLLOW POC.
--- NOTE | 2021-02-20 14:53 | EKG ---
[address] [employer] 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 : 1940 Requested By: Vivek Garvin Order Number: [id number] MD: Jose Luis Mota Measurements Intervals [place] Rate: 98 P: 46 NV: 146 QRS: 50 QRSD: 87 T: 51 QT: 349 QTc: 446 Interpretive Statements Sinus tachycardia Multiple premature complexes, supraven Low voltage, precordial leads Nonspecific ST segment abnormality Compared to ECG 11/19/2020 09:54:55 Low QRS voltage now present Atrial premature complexes are now present Electronically Signed On 02-20-2021 14:53:15 CDT by Jose Luis Mota [email or web address] <ELECTRONICALLY SIGNED> By: Jose Luis Mota MD, [facility] 02/20/21 1453 0426 0426 Jose Luis Mota MD, [facility] /EPI
--- NOTE | 2021-02-20 14:54 | EKG ---
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 : 1940 Requested By: Jeremiah Berger Order Number: [id number] MD: Jose Luis Mota Measurements Intervals [place] Rate: 89 P: 105 MO: 173 QRS: 118 QRSD: 84 T: 186 QT: 389 QTc: 474 Interpretive Statements Limb lead reversal, recommend repeat tracing Sinus rhythm Compared to ECG 02/18/2021 04:26:54 Supraventricular complexes are no longer present Limb lead reversal is noted Electronically Signed On 02-20-2021 14:54:22 CDT by Jose Luis Mota [email or web address] <ELECTRONICALLY SIGNED> By: Jose Luis Mota MD, [facility] 02/20/21 1454 0732 0732 Jose Luis Mota MD, [facility] /EPI
[2021-02-20 15:42] VITALS: BP 118/65
[2021-02-20 20:15] VITALS: BP 145/63
[2021-02-21 07:37] VITALS: BP 148/57
--- NOTE | 2021-02-21 08:20 | NUR ---
PT AMBULATING TO BATHROOM WITH WALKER AND STANDBY ASSIST AND IS TOLERATING FAIR. TRAMADOL PROVIDING PAIN RELIEF. RESTING COMFORTABLY. NO NEEDS VOICED. CALL LIGHT WITHIN REACH. FREQUENT OBSERVATION.
--- NOTE | 2021-02-21 12:20 | NUR ---
PT ADMITTED RELATED TO COPD EXACERBATION AND L3 COMPRESSION FX. CM REVIEWED CHART AND SPOKE WITH CARE TEAM. CM MET WITH PT AT BEDSIDE THIS DAY. PT APPEARS TO BE A&O X4. CM ROLE INTRODUCED. PT INDICATED SHE RESIDES IN A RAISED RANCH STYLE HOUSE WITH HER DTR WITH 13 STEPS TO ENTER THROUGH THE GARAGE AND 11 FROM THE FRONT. PT INDICATED SHE HAS A CANE AND A FWW FOR HOME USE. 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 PT INDICATED SHE HAD HH IN THE PAST BUT THAT SHE MIGHT PREFER TO DO OP THERAPY UPON DC. PT ALSO HAS A BRACE FOR USE. PT INDICATED SHE PLANS TO RETURN HOME ONCE MEDICALLY STABLE. CM FOLLOWING REGARDING DC PLANNING.
--- NOTE | 2021-02-21 19:12 | NUR ---
Assumed pt care this am, vs stable minimal wheezing noted. Pt uses a back brace d/t L3 compression fracture (old). Pain is managed with medications , partial relief is noted. On tele running NSR. POC followed with no signs or verbalixations of distress noted. Stayed on the recliner for most of the day. Endorsed to the night nurse.
[2021-02-21 19:59] VITALS: BP 126/57
--- NOTE | 2021-02-22 04:02 | NUR ---
ASSUMED CARE OF PT AT SHIFT CHANGE. PT IS AOX4 AND LETS NEEDS BE KNOWN. FALL PRECAUTION IN PLACE. PT COMPLAINED OF COUGH AND BACK PAIN; PRNS PROVIDED. PT DENIED NAUSEA AND SOA. PT WAS ABLE TO COMFORTABLE AND SLEEP PART OF THE SHIFT. VSS AND NO S/S ACUTE DISTRESS. WILL CONTINUE TO MONITOR FOR CHANGES.
[2021-02-22 07:55] VITALS: BP 131/58
--- NOTE | 2021-02-22 11:54 | NUR ---
CARE TEAM INDICATED THAT PT IS PROGRESSING TOWARD GOAL OF DISCHARGE. THERAPY INDICATED THAT PT WILL LIEKLY ME SAFE TO RETURN HOME WITH HER PREFERENCE OF OP PT UPON DC. CM FOLLOWING REGARDING DC PLANNING.
--- NOTE | 2021-02-22 15:54 | NUR ---
Assumed pt care ta 7am.Pt in and out of bed with walker and assist x1. Assessment completed.vss.Pt in steroid iv and tessalom leona for cough and copd.Dr Berger here,stated that pt will be in hospital for one more day to get better before dc home.RT here for breathing tx. Fall bundle in place.Will continue to monitor.
[2021-02-22 18:22] VITALS: BP 116/78
[2021-02-23 04:36] VITALS: BP 154/75
--- NOTE | 2021-02-23 04:43 | NUR ---
Pt. rested quietly at intervals during the night when checked on during frequent rounds. She was given po pain meds (see emar) for c/o back pain with some relief noted. Bed alarm is on.
[2021-02-23 06:10] LABS: HEMOGLOBIN 12.5 gm/dL (12.0-15.0); MCH 36.1 pg (26.0-34.0); MCHC 35.9 g/dL (28.0-37.0); MCV 100.8 fL (80.0-100.0); RBC 3.47 mil/uL (4.20-5.00); RDW 14.6 % (10.5-14.5); WBC 7.7 thou/uL (4.0-11.0)
[2021-02-23 06:22] LABS: CALCIUM 8.9 mg/dL (8.5-10.1); CREATININE 0.7 mg/dL (0.6-1.0); POTASSIUM 4.4 mmol/L (3.5-5.1)
[2021-02-23 08:00] VITALS: BP 129/75
[2021-02-23] MEDS ORDERED: IPRAT-ALBUT 0.5-3 ML INH (13:01)
[2021-02-23] MEDS ORDERED: TRAMADOL 50 MG50 MG PO (13:01)
[2021-02-23] MEDS ORDERED: TESSALON PERLE100 MG PO (13:01)
[2021-02-23] MEDS ORDERED: PREDNISONE 10 M10 M1 PO (13:04)
[2021-02-23] MEDS ORDERED: CEFDINIR300 MG PO (13:04)
[2021-02-23 14:00] VITALS: BP 129/75
--- NOTE | 2021-02-23 15:09 | NUR ---
CARE TEAM INDICATED THAT PT IS MEDICALLY STABLE TO DC HOME THIS DAY. CM MET WITH PT AT BEDSIDE THIS AFTERNOON AND SH REITERATED DESIRE FOR OP THERAPY INSTEAD OF HH UPON DC. PHYSICIAN PROVIDED SCRIPT FOR OP THERAPY. CM PROVIDED LIST OF OP THERAPY LOCATIONS NEAR PT'S HOUSE. SHE INDICATED DESIRE TO COME TO [facility]. CM PROVIDED PHONE NUMBER FOR PT TO CALL AND ESTABLISH SERVICES. PT'S DTR TO PROVIDE TRANSPORT HOME THIS DAY. NO OTHER CM INTERVENTION INDICATED. CASE CLOSED.
--- NOTE | 2021-02-23 15:15 | NUR ---
Assumed pt care at 7am.Pt in bed resting and reported feeling better today. Assessment completed.vss.Pt tolerated meds and diet.Dr Berger here,dc order noted.Pt said that it's going to be knot picker cloth by dtr around 1700.Dc summary compile and reviewed with pt. Cough med given as ordered.Will continue to monitor.
[2021-02-23 16:24] VITALS: BP 129/75
== END 2021-02-23 19:13 | disposition home or self-care (01) | DRG 542 ==
LOC: ER 06:15 → EROBS 08:35 → 4W 08:35 → 2N 18:50 → 4W 02-19 05:35
PROVIDERS: Emergency Medicine; ADMIT Hospitalist; ATTEND Hospitalist
DX: M48.56XA Collapsed vertebra, not elsewhere classified, lumbar region, initial encounter for fracture (principal); J96.01 Acute respiratory failure with hypoxia; J44.1 Chronic obstructive pulmonary disease with (acute) exacerbation; J44.0 Chronic obstructive pulmonary disease with (acute) lower respiratory infection; M48.061 Spinal stenosis, lumbar region without neurogenic claudication; E87.6 Hypokalemia; M81.0 Age-related osteoporosis without current pathological fracture; I10 Essential (primary) hypertension; R53.81 Other malaise; R13.10 Dysphagia, unspecified; M19.90 Unspecified osteoarthritis, unspecified site; Z96.611 Presence of right artificial shoulder joint; Z20.822 Contact with and (suspected) exposure to COVID-19; Z90.710 Acquired absence of both cervix and uterus; Z98.42 Cataract extraction status, left eye; Z98.41 Cataract extraction status, right eye; Z79.899 Other long term (current) drug therapy; Z88.1 Allergy status to other antibiotic agents; Z91.018 Allergy to other foods
CPT/HCPCS: 10045; 10081

== ENCOUNTER 2021-04-19 05:42 | Inpatient (IN) | payer OTHER ==
[~2021-04-19] VITALS: Ht 165.1 cm; Wt 53.1 kg
--- NOTE | ~2021-04-19 | HC ---
[facility] [place] [address] CONSULTATION Name: LINA LOMELI Room #: 218-P ADM IN M.R.#: [id number] Admission: 04/19/21 Attend Phys: Jeremiah Berger MD Discharge: Date of : 44 Report #: [id number] THIS REPORT FOR: cc: Dallin Urias MD, David A. MD Smithson, David G. MD ~ DATE OF SERVICE: 04/25/2021 HISTORY OF PRESENT ILLNESS: The patient is a 80-year-old -Angolan female admitted with increased shortness of breath, noted to have acute hypoxic respiratory failure. She has premorbid COPD, but was not on any oxygen, premorbidly for her history. She was noted to have a COPD exacerbation. Chest x-ray consistent with atypical pneumonia. She does have some mediastinal adenopathy, was followed by Pulmonary Medicine. She was given IV Solu-Medrol. She is gradually improving. She is, however, now on 3 liters nasal cannula. Continues on IV vancomycin, IV Solu-Medrol, IV levofloxacin. Workup was negative for pulmonary embolism. We are seeing her in rehabilitation medicine consultation. PAST MEDICAL HISTORY: History of severe asthma, COPD, hypertension, acute on chronic low back pain. She has had a recent L3 compression fracture, was placed in a back brace, but was able to have that weaned. Lumbar spinal stenosis. She has had a prior reverse left total shoulder replacement. MEDICATIONS: Please see the full medication listing. ALLERGIES: MOXIFLOXACIN, RAGWEED. SOCIAL HISTORY: Lives in a house with her daughter. Eleven steps in, then she can stay on 1 floor. Daughter works as a middle school history teacher and works during the day. The patient utilized a front-wheeled walker with the back brace, but now she is off the back brace. She has been using the cane. She has been going for outpatient physical therapy. Again, was not on O2 at home. REVIEW OF SYSTEMS: No current complaints of chest pain, shortness of breath or abdominal discomfort. PHYSICAL EXAMINATION: GENERAL: She is a pleasant 80-year-old small statured, thin -Angolan female in no obvious distress. The patient is alert. VITAL SIGNS: Last recorded temperature of 37.1, pulse 57, respirations 22, blood pressure 138/68. HEENT: Appeared to be benign. NEUROLOGIC: Cranial nerves are grossly intact. Facies are symmetric. She appears to be a good historian. She has functional range of motion of both upper extremities. Strength is grade 4-/5. DTRs trace to 1. [address] [address] CONSULTATION Name: LINA LOMELI Room #: 218-P [facility] IN M.R.#: [id number] Admission: 04/19/21 Attend Phys: Jeremiah Berger MD Discharge: Date of : 42 Report #: [id number] extremities, no focal calf swelling. Functional range of motion, strength is grade 4-/5. Functionally, she is min assist; sit to stand. She did ambulate 30 feet min assist with a front-wheeled walker. ASSESSMENT: A 80-year-old -Angolan female with the following problem list: 1. Pulmonary rehabilitation. 2. Acute hypoxic respiratory failure. 3. Chronic obstructive pulmonary disease exacerbation. 4. Atypical pneumonia. 5. Medical complexity with generalized debilitation. 6. Recent left L3 compression fracture. No longer needing to utilize the back brace. 7. Premorbid history of severe asthma. PLAN: The patient is a candidate for an acute [facility] inpatient rehabilitation stay. We will check regarding bed availability issues. Thank you for asking us to assist in this patient's care. By: [id number] Dallin Guerra MD /nt
[~2021-04-19 05:42] MED LIST changes: +CEFDINIR300 MG PO; +IPRAT-ALBUT 0.5-3 ML INH; +PREDNISONE 10 M10 M1 PO; +TESSALON PERLE100 MG PO
[2021-04-19 06:05] VITALS: BP 146/70
[2021-04-19 06:31] LABS: HEMATOCRIT 38.6 % (37.0-47.0); HEMOGLOBIN 13.5 gm/dL (12.0-15.0); MCH 34.4 pg (26.0-34.0); MCHC 34.8 g/dL (28.0-37.0); MCV 98.6 fL (80.0-100.0); PLATELET COUNT 308 thou/uL (150-400); RBC 3.92 mil/uL (4.20-5.00); RDW 14.7 % (10.5-14.5); WBC 16.6 thou/uL (4.0-11.0)
[2021-04-19 06:35] LABS: ANION GAP 10 mmol/L (7-16); BUN 12 mg/dL (7-18); CALCIUM 8.7 mg/dL (8.5-10.1); CHLORIDE 105 mmol/L (98-107); CO2 30 mmol/L (21-32); CREATININE 0.7 mg/dL (0.6-1.0); GLUCOSE 108 mg/dL (74-106); SODIUM 145 mmol/L (136-145)
[2021-04-19 06:44] LABS: ALBUMIN 3.5 g/dL (3.4-5.0); SGOT 12 U/L (15-37); SGPT 12 U/L (30-65); TOTAL BILIRUBIN 0.7 mg/dL (0.2-1.0); TOTAL PROTEIN 7.2 g/dL (6.4-8.2); TROPONIN-I <0.06 ng/mL (<0.06)
[2021-04-19 07:12] LABS: ABSOLUTE NEUTROPHILS 10.8 thou/uL (1.4-8.2); PLATELET ESTIMATE NORMAL
--- NOTE | 2021-04-19 07:40 | EKG ---
[address] [address] [place] [address] ELECTROCARDIOGRAM REPORT Name: LINA LOMEIL Room #: 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 : 1940 Requested By: Vivek Garvin Order Number: [id number] MD: Gumaro Bedolla Measurements Intervals [place] Rate: 104 P: 58 [place]: 150 QRS: 58 QRSD: 107 T: -3 QT: 342 QTc: 450 Interpretive Statements Sinus tachycardia Ventricular premature complex Aberrant conduction of SV complex(es) Left atrial enlargement Nonspecific repol abnormality, diffuse leads Baseline wander in lead(s) V2 Compared to ECG 02/18/2021 07:32:12 Ventricular premature complex(es) now present Aberrant conduction of supraventricular beat(s) now present Electronically Signed On 04-19-2021 7:40:33 CDT by Gumaro Bedolla [email or web address] <ELECTRONICALLY SIGNED> By: Gumaro Bedolla MD, [facility] 04/19/2140 4 4 Gumaro Bedolla MD, [facility] /EPI
[2021-04-19 08:45] LABS: MAGNESIUM 2.2 mg/dL (1.8-2.4)
[2021-04-19 09:34] LABS: URINE BILIRUBIN NEGATIVE (Negative); URINE BLOOD NEGATIVE (Negative); URINE CLARITY CLEAR; URINE COLOR YELLOW; URINE GLUCOSE-RANDOM* NEGATIVE (Negative); URINE KETONES TRACE (Negative); URINE LEUKOCYTES-REFLEX NEGATIVE (Negative); URINE NITRITE-REFLEX NEGATIVE (Negative); URINE PROTEIN (DIPSTICK) NEGATIVE (Negative); URINE UROBILINOGEN 0.2 E.U./dl (0.2-1.0)
--- NOTE | 2021-04-19 10:25 | NUR ---
UNABLE TO DRAW LABS FROM IV. LAB CALLED AT THIS TIME
[2021-04-19 12:05] VITALS: BP 140/69
[2021-04-19 12:20] VITALS: BP 130/74
[2021-04-19 12:55] VITALS: BP 166/84
[2021-04-19 15:30] VITALS: BP 150/78
[2021-04-19 15:55] LABS: APTT 23.5 Seconds (24.5-32.8); INR 1.12; PROTIME 12.1 Seconds (10.5-12.1)
--- NOTE | 2021-04-19 17:44 | NUR ---
[age] YEAR OLD FEMALE ADMITTED TO ORTH ROOM 210. PT WAS BROUGHT INTO THE ER PER MAST, AFTER C/O SOA AT 4AM. VSS, 02 2L. PT SOA ON EXCERTION. PT DENIES PAIN DURING ADMISSION ASSESSMENT. PT TOLERATES MEDS BUT HAS A POOR APPETITE. WILL CONTINUE TO MONITOR
[2021-04-19 20:55] VITALS: BP 118/58
[2021-04-20 00:45] VITALS: BP 140/72
[2021-04-20 04:38] LABS: CALCIUM 8.2 mg/dL (8.5-10.1); CREATININE 0.6 mg/dL (0.6-1.0); MAGNESIUM 2.2 mg/dL (1.8-2.4); POTASSIUM 3.6 mmol/L (3.5-5.1)
[2021-04-20 04:45] VITALS: BP 135/82
[2021-04-20 05:14] LABS: HEMATOCRIT 35.5 % (37.0-47.0); HEMOGLOBIN 12.7 gm/dL (12.0-15.0); MCH 38.6 pg (26.0-34.0); MCHC 35.8 g/dL (28.0-37.0); PLATELET COUNT 263 thou/uL (150-400); RDW 15.2 % (10.5-14.5)
[2021-04-20 05:21] LABS: MCV 107.6 fL (80.0-100.0)
--- NOTE | 2021-04-20 07:18 | NUR ---
PATIENTS CARES WERE ASSUMED AT SHIFT CHANGE. PATIENT WAS ASSESSED AND MEDS WERE PASSED. PATIENT AKED SEVERAL TIMES FOR A BREATHING TREATMENT. SHE CONTINUES TO WEAR HER 2L NC. PATIENT VOIDS IN THE BSC. ROUNDS WERE MADE AND PATIENT DID SLEEP FOR APPROX. SEVEN HOURS. BED ALARM IS ON AND THE BED IS IN A LOW AND LOCKED POSITION
[2021-04-20 07:37] LABS: ABSOLUTE NEUTROPHILS 11.5 thou/uL (1.4-8.2); MACROCYTES 2+; PLATELET ESTIMATE NORMAL
[2021-04-20 08:00] VITALS: BP 179/75
[2021-04-20 09:04] LABS: BE(vivo) 0.7 mmol/L (-2 to +3); HCO3 29.9 mmol/L (22.0-26.0); PO2 70.6 mmHg (80.0-100.0); sO2 90.9 % (92.0-98.0)
[2021-04-20 09:05] LABS: pH 7.249 (7.360-7.450)
[2021-04-20 11:00] VITALS: BP 140/66
--- NOTE | 2021-04-20 13:06 | NUR ---
PATIENT WAS USING ACCESSORY MUSCLE USE AND AUDIBLE WHEEZING. NO RELIEF POST TREATMENT AND DR PINEDA NOTIFIED.BLOOD GAS SHOWED A RESPIRATORY ACIDOSIS AND SHE WAS PLACED ON BIPAP. IN CONJUNCTION WITH THE BIPAP I ASKED EDWIN TO ORDER A HEART NEB FOR AN HOUR LONG TREATMENT. POST TREATMENT PATIENT WAS ABLE TO REST NO ACCESSORY MUSCLE USE NOTED AND PATIENT STATED HER CHEST WASNT TIGHT. AUDIBLE WHEEZES WERE LESSENED AND PATIENT WAS RESTING COMFORATBLY IN THE CHAIR.
--- NOTE | 2021-04-20 14:01 | NUR ---
RECEIVED PATIENT CONSCIOUS, ORIENTED.ON NASAL CANNULA AT 2LPM, PATIENT IS HAVING SHORTNESS OF BREATH AND LOOKS LIKE IN DISTRESS.CALLED THE RT ON DUTY TO ASSESS THE PATIENT AND GIVE HER DUE BREATHING TREATMENTS.DR. PINEDA ALSO CAME AND CHECKED THE PATIENT AND INFORMED HIM ABOUT MY CONCERN REGARDING THE PATIENT'S BREATHING PATTERN.RT ON DUTY DID AN ABG WHICH WAS SHOWING RESPIRATORY ACIDOSIS.PATIENT WAS PLACED ON BIPAP AT 50% FIO2.AFTER SOMETIME PATIENT VERBALIZED THAT SHE IS FEELING BETTER AFTER SHE WAS PLACED ON BIPAP.
--- NOTE | 2021-04-20 16:36 | 2DMMODE ---
[facility] [place] [address] 2 D/M-MODE ECHOCARDIOGRAM Name: LINA LOMELI Room #: 210-P ADM IN .R.#: [id number] Admission: 04/19/21 Attend Phys: Jeremiah Berger MD Discharge: Date of : 44 Report #: [id number] THIS REPORT FOR: cc: Dallin Urias MD, David A. MD Lammoglia, Francisco J. MD ~ APPROVED REPORT Study performed: 04/20/2021 14:57:35 EXAM: Comprehensive 2D, Doppler, and color-flow Echocardiogram Patient Location: Bedside Room #: 210 Status: routine BSA: 1.58 HR: 96 bpm BP: 135/82 mmHg Rhythm: NSR Other Information Study Quality: Technically Difficult Indications COPD Hypertension/HDD Elevated BNP, SOA 2D Dimensions RVDd: 29.97 mm IVSd: 9.12 (7-11mm) LVOT Diam: 17.95 (18-24mm) LVDd: 29.65 mm PWd: 11.34 (7-11mm) Ascending Ao: 29.01 (22-36mm) LVDs: 20.04 (25-40mm) Aortic Root: 26.41 mm IVC: 17.00 mm Volumes Left Atrial Volume (Systole) Single Plane 4CH: 47.37 mL Single Plane 2CH: 24.23 mL LA ESV Index: 23.00 mL/m2 Aortic Valve AoV Peak Karan.: 1.77 m/s AO Peak Gr.: 12.51 mmHg LVOT Max P.97 mmHg [facility] [address] [place] [address] 2 D/M-MODE ECHOCARDIOGRAM Name: LINA LOMELI Room #: 210-P [facility]#: [id number] Admission: 04/19/21 Attend Phys: Jeremiah Berger MD Discharge: Date of : 42 Report #: [id number] LVOT Max V: 1.32 m/s AILYN Vmax: 1.89 cm2 Mitral Valve E/A Ratio: 0.8 MV Decel. Time: 188.18 ms MV E Max Karan.: 0.86 m/s MV A Karan.: 1.04 m/s MV PHT: 54.57 ms IVRT: 76.12 ms Pulmonary Valve PV Peak Karan.: 1.26 m/s PV Peak Gr.: 6.32 mmHg Pulmonary Vein P Vein S: 0.68 m/s P Vein A: 0.38 m/s P Vein D: 0.43 m/s P Vein A Dur.: 76.1 msec P Vein S/D Ratio: 1.58 Tricuspid Valve TR Peak Karan.: 3.12 m/s RAP Estimate: 5.00 mmHg TR Peak Gr.: 39.00 mmHg PA Pressure: 44.00 mmHg Left Ventricle The left ventricle is normal size. There is normal LV segmental wall motion. There is normal left ventricular wall thickness. Left ventricular systolic function is hyperdynamic. LVEF is 70%. Mild diastolic dysfunction is present (impaired relaxation pattern). Right Ventricle The right ventricle is normal size. The right ventricular systolic function is normal. Atria The left atrium size is normal. The right atrium size is normal. Aortic Valve Mild aortic valve sclerosis. No aortic regurgitation is present. There is no aortic valvular stenosis. Mitral Valve The mitral valve is normal in structure. There is no mitral valve regurgitation noted. No evidence of mitral valve stenosis. [facility] [address] [place] [address] 2 D/M-MODE ECHOCARDIOGRAM Name: LINA LOMELI Room #: 210-P ADM IN M.R.#: [id number] Admission: 04/19/21 Attend Phys: Jeremiah Berger MD Discharge: Date of : 42 Report #: [id number] Tricuspid Valve The tricuspid valve is normal in structure. Mild tricuspid regurgitation. PAP is estimated at 44 mmHg. Pulmonic Valve Pulmonic valve is not well visualized. Great Vessels The aortic root is normal in size. IVC is normal in size and collapses >50% with inspiration. Pericardium There is no pericardial effusion. <Conclusion> The left ventricle is normal size. There is normal left ventricular wall thickness. LVEF is 70%. The right ventricle is normal size. Mild aortic valve sclerosis. No aortic regurgitation is present. There is no aortic valvular stenosis. The mitral valve is normal in structure. The tricuspid valve is normal in structure. Mild tricuspid regurgitation. PAP is estimated at 44 mmHg. Pulmonic valve is not well visualized. The aortic root is normal in size. There is no pericardial effusion. <ELECTRONICALLY SIGNED> By: Inocente Almazan MD 04/20/21 1635 1635 1635 Inocente Almazan MD /INF
[2021-04-20 16:46] VITALS: BP 152/76
--- NOTE | 2021-04-20 19:44 | NUR ---
PATIENT IS STILL ON BIPAP AT 50%, SATURATING WELL.LOOKS MORE COMFORTABLE ON BIPAP.ALL DUE MEDICATIONS GIVEN.ALL NEEDS ATTENDED.HANDED OVER TO PROTOTYPE MACHINE OPERATOR FOR FURTHER CARE.
[2021-04-20 20:15] VITALS: BP 138/59
[2021-04-21 03:19] LABS: HEMATOCRIT 36.3 % (37.0-47.0); HEMOGLOBIN 12.6 gm/dL (12.0-15.0); MCH 36.2 pg (26.0-34.0); MCHC 34.7 g/dL (28.0-37.0); MCV 104.4 fL (80.0-100.0); RBC 3.48 mil/uL (4.20-5.00); RDW 14.8 % (10.5-14.5); WBC 18.1 thou/uL (4.0-11.0)
[2021-04-21 03:57] LABS: CALCIUM 8.3 mg/dL (8.5-10.1); CREATININE 0.5 mg/dL (0.6-1.0); POTASSIUM 4.5 mmol/L (3.5-5.1)
[2021-04-21 04:45] VITALS: BP 134/69
--- NOTE | 2021-04-21 06:54 | NUR ---
PATIENTS CARES WERE ASSUMED AT SHIFT CHANGE. PATIENT WAS ASSESSED AND MEDS WERE PASSED. PATIENT IS REMOVED FROM HER BYPAP PERIODICLY TO EAT, BATHROOM,AND TAKE MEDS. PATIENT STATES SHE FEELS BETTER JUST HAS A HARD TIME BREATHING. ROUNDS WERE MAKE. BED ALARM IS ON, THE BED IS IN A LOW AND LOCKED POSITION.
[2021-04-21 08:00] VITALS: BP 142/74
[2021-04-21 12:00] VITALS: BP 130/58
[2021-04-21 13:49] LABS: BE(vivo) 5.6 mmol/L (-2 to +3); sO2 98.5 % (92.0-98.0)
[2021-04-21 16:30] VITALS: BP 133/70
--- NOTE | 2021-04-21 18:35 | NUR ---
RECEIVED THE PATIENT CONSCIOUS AND ORIENTED.ON BIPAP AT 30% FIO2.STILL HAVING SOME SOA WHEN OFF BIPAP.ALL NEEDS ATTENDED.ORDERS CARRIED OUT.STILL FOR COLLECTION OF URINE SAMPLE.
[2021-04-21 20:36] VITALS: BP 187/88
[2021-04-21 23:55] VITALS: BP 145/66
[2021-04-22 03:47] VITALS: BP 139/68
[2021-04-22 08:00] VITALS: BP 118/45
--- NOTE | 2021-04-22 08:58 | HC ---
[facility] [place] [address] CONSULTATION Name: LINA LOMELI Room #: 218-P ADM IN M.R.#: [id number] Admission: 04/19/21 Attend Phys: Jeremiah Berger MD Discharge: Date of : 42 Report #: [id number] THIS REPORT FOR: cc: Dallin Urias MD, David A. MD Barry, Joseph W. MD ~ DATE OF SERVICE: 04/21/2021 INFECTIOUS DISEASE CONSULTATION ATTENDING PHYSICIAN: Dr. Berger. REASON FOR EVALUATION: Pneumonitis. HISTORY OF PRESENT ILLNESS: Chart was reviewed. The patient was examined. This is a 80-year-old woman known to myself who has been hospitalized at least 3 times thus far this year. We saw her in October all for revolving around respiratory difficulty. She has known severe asthma with COPD, underlying chronic sinus disease as well, chronic back pain with compression fractures, who noted she was doing fairly well until recently, had several visitors. Subsequent to that became more dyspneic and developed a productive cough. She describes as mucus. It is not clear if she had significant fevers or chills. Her appetite was diminished; however, in spite of her usual breakthrough treatments, she continued to worsen. This prompted her to present to the emergency room. She was discovered to be hypoxemic, placed on BiPAP. Coronavirus testing was negative. Procalcitonin 0.12. Did have mild leukocytosis of 16,600. Chest x-ray comparison showed hyperexpansion and patchy alveolar peripheral opacities. Lactic acid within normal range at 1.1. Urinalysis otherwise unremarkable. ABGs: pH 7.249, pCO2 of 70, pO2 of 70.6 that was on 3 liters. CTA chest PE protocol showed no evidence of PE, extensive patchy nodular infiltrate throughout both lungs, question of viral extensive mediastinal lymphadenopathy. Echo showed EL LVEF of 70%. Generally unremarkable cardiac valves. Blood cultures collected at the time of admission are sterile thus far. She was empirically started on therapy with levofloxacin. ALLERGIES: LISTED TO RAGWEED, MOXIFLOXACIN, ALTHOUGH SHE HAS TAKEN LEVAQUIN IN THE PAST. CURRENT MEDICATIONS: Include ipratropium, albuterol inhaler, insulin, methylprednisolone 40 mg IV q.12 h., Levaquin, pantoprazole, guaifenesin, enoxaparin, fluticasone, montelukast, budesonide, gabapentin, p.r.n. analgesics, antiemetics, tramadol. PAST MEDICAL HISTORY: Includes the above noted COPD, hypertension, glaucoma, severe osteoarthritis, previous vertebral compression fractures, chronic sinusitis, previous surgeries. [address] [address] CONSULTATION Name: YANILINA Ash Room #: 218-P ADM IN M.R.#: [id number] Admission: 04/19/21 Attend Phys: Jeremiah Berger MD Discharge: Date of : 42 Report #: [id number] SOCIAL HISTORY: Nonsmoker, no ethanol, no illicit drug use. FAMILY HISTORY: Noncontributory. REVIEW OF SYSTEMS: Otherwise, unremarkable. PHYSICAL EXAMINATION: GENERAL: She appears chronically ill and undernourished. She is pleasant, cooperative, generally lucid, mild to moderate distress, currently maintained on nasal cannula oxygen. She is attempting to eat, although very small portions. VITAL SIGNS: Temperature 98.8, pulse 90, respirations 22, blood pressure is 130/58. SKIN: Warm, dry, no rashes. HEENT: Nasal cannula in place. NECK: Supple. Extraocular muscles intact. She is normocephalic. LUNGS: Diminished breath sounds bilaterally, scattered coarse breath sounds. HEART: Borderline tachycardic, regular, do not appreciate a murmur. ABDOMEN: Soft, nontender. GENITOURINARY AND RECTAL: Deferred. LABORATORY DATA: ABGs from this afternoon, pH 7.500, pCO2 of 38, pO2 of 115 on BiPAP at 30%. Most recent chest x-ray from this morning, diffuse interstitial and patchy alveolar infiltrates noted most prominently in right upper lobe. Blood cultures sterile thus far. Electrolytes: Sodium 140, potassium 4.5, chloride 103, bicarbonate is 28, anion gap of 9, BUN and creatinine 11 and 0.5, glucose of 93. Estimated GFR 145. CBC: White count of 8.1, H and H 12.6 and 36.3, platelets of 203. IMAGING: As noted above. ASSESSMENT AND PLAN: Pneumonitis, complicated by respiratory failure. The patient has significant underlying lung disease, not entirely clear as to cause. She notes she has been hacking up some sputum. We will try to collect sample. There are some urinary antigens with history of recent hospitalizations, would be concerned about a more resistant organism. We will add vancomycin to her regimen. She remains quite tenuous at this point. Continue to monitor expectantly. <ELECTRONICALLY SIGNED> By: Say Werner MD 04/22/21 0858 1314 2218 Say Werner MD /nt
--- NOTE | 2021-04-22 11:31 | NUR ---
SW completed assessment w/ pt at bedside. Pt A&Ox4 Pt stated that correct personal cell number is [phone] NOK: Daughter Joy [phone] DPOA: None at this time [place] PCP: Dallin Urias MD Pt lives in raised ranch style home w/ daughter w/ 11 entry steps. 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 Pt states that she is having barriers getting to a PCP office as they are only open M-W & appt's are alwayas set out far and before arriving to the dated appt she starts feeling sick and admits to ED. This is pt's 3rd visit this year. SW provided pt w/ additional PCP list in case she makes the decision to change PCP closer to [facility] vs [facility].
--- NOTE | 2021-04-22 18:02 | NUR ---
ASSESSMENT CHARTED - MEDS PER NOV. SEPIDEH DIET AND FLUIDS IN SMALL AMOUNTS ACCUCHECKS CHARTED COVERED PER SSI. NO CO'S OF PAIN OR NAUSEA. PT UP TO THE CHAIR FOR A LARGE PART ON THE SHIFT - SEPIDEH WELL . VENTI MASK OFF AND PT NOW ON O2 @ 3 L NC SAT IN THE MID 90'S - MOIST PRODUCTIVE COUGH - SPECIMEN TO LAB. DAUGHTER INTO VISIT. NO CO'S AT THE PRESENT TIME.
[2021-04-22 20:00] VITALS: BP 110/54
[2021-04-23 03:36] VITALS: BP 146/76
--- NOTE | 2021-04-23 04:16 | NUR ---
ASSESSMENT: PT REMAIN ALERT AND ORIENT TIMES FOUR. UP WITH SBA TO THE BSC. TOLERATING OXYGEN SETTINGS ON BIPAP. VSS, AFEBRILE. DENIES PAIN. DOES HAVE A PRODUCTIVE COUGH. CLOR TANNISH. SLEPT MOST OF THE NIGHT. SR-ST PER MONITOR. GOOD SLOW PROGRESS TOWARDS DC GOALS. WILL CONTINUE TO MONITOR.
[2021-04-23 08:00] VITALS: BP 144/75
[2021-04-23 11:10] LABS: HEMATOCRIT 35.1 % (37.0-47.0); HEMOGLOBIN 12.5 gm/dL (12.0-15.0); MCH 36.9 pg (26.0-34.0); MCHC 35.6 g/dL (28.0-37.0); MCV 103.5 fL (80.0-100.0); RBC 3.39 mil/uL (4.20-5.00); RDW 15.3 % (10.5-14.5); WBC 11.8 thou/uL (4.0-11.0)
[2021-04-23 11:19] LABS: CALCIUM 8.5 mg/dL (8.5-10.1); CREATININE 0.8 mg/dL (0.6-1.0); MAGNESIUM 2.1 mg/dL (1.8-2.4); POTASSIUM 3.6 mmol/L (3.5-5.1)
[2021-04-23 12:00] VITALS: BP 148/76; BP 152/80
[2021-04-23 20:27] VITALS: BP 157/75
[2021-04-24 03:16] LABS: HEMATOCRIT 35.6 % (37.0-47.0); HEMOGLOBIN 11.9 gm/dL (12.0-15.0); MCH 31.7 pg (26.0-34.0); MCHC 33.5 g/dL (28.0-37.0); RBC 3.77 mil/uL (4.20-5.00); RDW 15.3 % (10.5-14.5); WBC 18.7 thou/uL (4.0-11.0)
[2021-04-24 03:18] LABS: MCV 94.4 fL (80.0-100.0)
[2021-04-24 03:22] LABS: CREATININE 0.6 mg/dL (0.6-1.0); MAGNESIUM 2.1 mg/dL (1.8-2.4); POTASSIUM 3.4 mmol/L (3.5-5.1)
[2021-04-24 04:34] VITALS: BP 153/84
--- NOTE | 2021-04-24 06:19 | NUR ---
pt has worn the bipap all night. she has been resting comfortably. calls approp for assist to the restroom. no concerns voiced.
[2021-04-24 09:02] VITALS: BP 161/80
[2021-04-24 12:00] VITALS: BP 148/74
[2021-04-24 14:54] VITALS: BP 137/70
--- NOTE | 2021-04-24 17:37 | NUR ---
ASSUMED CARE AT 1300. PT AFEBRILE, ADEQUATE UOP, NO BM, APPROPRIATE APPETITE. PT UPDATED AND EDUCATED ON PT CONDITION AND POC. PT PROGRESSING TOWARDS POC.
[2021-04-24 20:00] VITALS: BP 125/67
[2021-04-25 03:56] LABS: HEMATOCRIT 36.8 % (37.0-47.0); HEMOGLOBIN 12.4 gm/dL (12.0-15.0); MCH 32.6 pg (26.0-34.0); MCHC 33.7 g/dL (28.0-37.0); MCV 96.8 fL (80.0-100.0); RBC 3.8 mil/uL (4.20-5.00); WBC 10.1 thou/uL (4.0-11.0)
[2021-04-25 04:00] VITALS: BP 165/91
[2021-04-25 04:11] LABS: CALCIUM 8.4 mg/dL (8.5-10.1); CREATININE 0.5 mg/dL (0.6-1.0); MAGNESIUM 2.3 mg/dL (1.8-2.4); POTASSIUM 4.1 mmol/L (3.5-5.1)
--- NOTE | 2021-04-25 05:04 | NUR ---
PT WORE BIPAP FOR ROUGHLY 7 HOURS DURING THE NIGHT. SHE SLEPT MOST OF THE NIGHT. PT CONTINUES TO HAVE A NON-PRODUCTIVE, LOOSE COUGH. UP W/ ASSIST TO BSC. SHE CALLS OUT APPROPRIATELY FOR ASSISTANCE WHEN NEEDED. FALL PRECAUTIONS IN PLACE. NO SIGNIFICANT EVENTS DURING THE NIGHT. PROGRESSING SLOWLY TOWARD POC GOALS.
[2021-04-25 08:00] VITALS: BP 138/68
[2021-04-25 12:56] VITALS: BP 128/31
[2021-04-25 16:00] VITALS: BP 136/56
[2021-04-25 20:00] VITALS: BP 139/67
[2021-04-26 04:00] VITALS: BP 126/73
[2021-04-26 04:00] LABS: HEMATOCRIT 35.5 % (37.0-47.0); HEMOGLOBIN 11.7 gm/dL (12.0-15.0); MCV 97.1 fL (80.0-100.0); RBC 3.66 mil/uL (4.20-5.00); RDW 15.1 % (10.5-14.5); WBC 13.3 thou/uL (4.0-11.0)
--- NOTE | 2021-04-26 04:33 | NUR ---
Patient making progress towards outcome goals. Oxygenation optimal with 3L/NC. Tolerating BIPAP at night. High fall risks, fall precautions in place. Uses call light appropriately for needs. Vital signs and rhythm stable.
[2021-04-26 04:36] LABS: CALCIUM 8.4 mg/dL (8.5-10.1); CREATININE 0.6 mg/dL (0.6-1.0); MAGNESIUM 2.2 mg/dL (1.8-2.4); POTASSIUM 4.1 mmol/L (3.5-5.1)
[2021-04-26 08:00] VITALS: BP 144/62
[2021-04-26 12:49] VITALS: BP 125/51
[2021-04-26 16:10] VITALS: BP 118/52
--- NOTE | 2021-04-26 17:10 | NUR ---
Visited with patient. She reports plan for transfer to [facility] once stable. Left message with dtr to discuss planned transition to 5[facility]. Casemgt following.
--- NOTE | 2021-04-26 17:31 | NUR ---
PT UP WITH PT/OT AND UP TO CHAIR. PT REMIANS ON OXYGEN VIA NASAL CANNULA. PT TAKING IN GOOD PO AND TOLERATING MEDICATIONS. WILL CONTINUE TO ASSESS.
--- NOTE | 2021-04-26 19:25 | NUR ---
CHECKED WITH LOCO IN PHARMACY AND SHE GAVE OK TO GIVE VANCOMYCIN IV SCHEDULED DOSE THIS EVENIING,
[2021-04-26 20:04] VITALS: BP 125/67
--- NOTE | 2021-04-27 04:15 | NUR ---
ASSUMED PT CARE AT 1900, AWAKE, ALERT AND ORIENTED, SR/SB ON TELE, ON BIPAP AT NIGHT, O2SATS STABLE, VSS, DENIES PAIN OR SOB, ASSESSMENTS CHARTED, NO ACUTE DISTRESS, NO NEEDS AT THIS TIME, PLAN FOR REHAB, WILL CONTINUE TO MONITOR
[2021-04-27 04:37] VITALS: BP 117/60
[2021-04-27 06:38] LABS: HEMATOCRIT 36.9 % (37.0-47.0); HEMOGLOBIN 12.5 gm/dL (12.0-15.0); MCH 32.4 pg (26.0-34.0); MCHC 33.8 g/dL (28.0-37.0); MCV 95.7 fL (80.0-100.0); RBC 3.86 mil/uL (4.20-5.00); RDW 15.1 % (10.5-14.5); WBC 11.8 thou/uL (4.0-11.0)
[2021-04-27 06:52] LABS: CALCIUM 8.3 mg/dL (8.5-10.1); CREATININE 0.6 mg/dL (0.6-1.0); MAGNESIUM 2.2 mg/dL (1.8-2.4); POTASSIUM 4.4 mmol/L (3.5-5.1)
[2021-04-27 08:00] VITALS: BP 136/73
[2021-04-27 12:00] VITALS: BP 132/68
[2021-04-27] MEDS ORDERED: IPRAT-ALBUT 0.5-3 ML INH (14:08)
[2021-04-27] MEDS ORDERED: PULMICORT0.5 MG/21 INH (14:09)
[2021-04-27] MEDS ORDERED: LEVOFLOXACIN750 MG PO (14:10)
[2021-04-27 16:30] VITALS: BP 128/71
--- NOTE | 2021-04-27 19:56 | NUR ---
RECEIVED THE PATIENT CONSCIOUS AND ORIENTED.ON NASAL CANNULA AT1LPM, SATURATING WELL.NOT IN PAIN OR DISTRESS.PATIENT WAS ABLE TO AMBULATE OUT OF BED WITH ASSISTANCE.ALL NEEDS ATTENDED.TRANSFERED PATIENT TO REHAB AT 0525PM. VANCOMYCIN DUE AT 1800H WAS HANDED OVER TO REHAB NURSE AND HE WILL ADMINISTER IT IN REHAB.
== END 2021-04-27 17:34 | DRG 871 ==
LOC: ER 05:42 → EROBS 10:57 → 2N 10:57
PROVIDERS: Emergency Medicine; Internal Medicine; Internal Medicine Pulmonary Disease; Nurse Practitioner; ADMIT Hospitalist; ATTEND Hospitalist
PROC: 5A09357 Assistance with Respiratory Ventilation, Less than 24 Consecutive Hours, Continuous Positive Airway Pressure (ICD-10-PCS; principal; 2021-04-20)
PROC: 5A09357 Assistance with Respiratory Ventilation, Less than 24 Consecutive Hours, Continuous Positive Airway Pressure (ICD-10-PCS; 2021-04-21)
PROC: 5A09357 Assistance with Respiratory Ventilation, Less than 24 Consecutive Hours, Continuous Positive Airway Pressure (ICD-10-PCS; 2021-04-22)
PROC: 5A09357 Assistance with Respiratory Ventilation, Less than 24 Consecutive Hours, Continuous Positive Airway Pressure (ICD-10-PCS; 2021-04-23)
PROC: 5A09357 Assistance with Respiratory Ventilation, Less than 24 Consecutive Hours, Continuous Positive Airway Pressure (ICD-10-PCS; 2021-04-24)
PROC: 5A09357 Assistance with Respiratory Ventilation, Less than 24 Consecutive Hours, Continuous Positive Airway Pressure (ICD-10-PCS; 2021-04-25)
PROC: 5A09357 Assistance with Respiratory Ventilation, Less than 24 Consecutive Hours, Continuous Positive Airway Pressure (ICD-10-PCS; 2021-04-26)
PROC: 5A09357 Assistance with Respiratory Ventilation, Less than 24 Consecutive Hours, Continuous Positive Airway Pressure (ICD-10-PCS; 2021-04-27)
DX: A41.9 Sepsis, unspecified organism (principal); J18.9 Pneumonia, unspecified organism; J80 Acute respiratory distress syndrome; E46 Unspecified protein-calorie malnutrition; J44.1 Chronic obstructive pulmonary disease with (acute) exacerbation; J44.0 Chronic obstructive pulmonary disease with (acute) lower respiratory infection; J45.901 Unspecified asthma with (acute) exacerbation; Z68.1 Body mass index [BMI] 19.9 or less, adult; M48.56XA Collapsed vertebra, not elsewhere classified, lumbar region, initial encounter for fracture; I10 Essential (primary) hypertension; Z20.822 Contact with and (suspected) exposure to COVID-19; M19.90 Unspecified osteoarthritis, unspecified site; Z96.611 Presence of right artificial shoulder joint; G89.29 Other chronic pain; M54.9 Dorsalgia, unspecified; E87.6 Hypokalemia; R53.81 Other malaise; J32.9 Chronic sinusitis, unspecified; K21.9 Gastro-esophageal reflux disease without esophagitis; D72.10 Eosinophilia, unspecified; R59.0 Localized enlarged lymph nodes; M48.061 Spinal stenosis, lumbar region without neurogenic claudication; M81.0 Age-related osteoporosis without current pathological fracture; Z88.8 Allergy status to other drugs, medicaments and biological substances; Z79.52 Long term (current) use of systemic steroids; Z90.710 Acquired absence of both cervix and uterus; Z98.42 Cataract extraction status, left eye; Z98.41 Cataract extraction status, right eye; Z88.1 Allergy status to other antibiotic agents; Z82.49 Family history of ischemic heart disease and other diseases of the circulatory system; Z79.899 Other long term (current) drug therapy
CPT/HCPCS: 10081

== ENCOUNTER 2021-04-27 11:47 | Inpatient (IN) | payer OTHER ==
[~2021-04-27] VITALS: Ht 165.1 cm; Wt 55.8 kg
--- NOTE | ~2021-04-27 | PLAN ---
[facility] [address] [place] [address] REHAB UNIT PLAN OF CARE Name: LINA LOMELI Room #: 510-P ADM IN M.R.#: [id number] Admission: 04/27/21 Attend Phys: Dallin Guerra MD Discharge: Date of : 44 Report #: [id number] THIS REPORT FOR: cc: Dallin Urias MD, David A. MD Smithson, David G. MD ~ DATE OF SERVICE: 04/30/2021 OVERALL PLAN OF CARE PLAN: The overall plan of care is based on the pre-admit screen and information garnered from therapy assessments. 1. Estimated length of stay is probably around 10 days. 2. Medical prognosis is reasonably good. 3. Anticipated interventions includes the interdisciplinary acute inpatient rehabilitation program. 4. Anticipated functional outcomes would be for the patient to improve as far as her strength, endurance, mobility and ADL independence to at least achieve again a front-wheeled walker ambulatory level, so that she can return back to the home setting. 5. Discharge destination would be back home with her daughter in a house. Daughter is gone during the daytime at work. 6. Expected therapy by discipline includes PT and OT 1-1/2 hours per day each five days a week throughout the duration of the acute inpatient rehabilitation stay. X-rays of her lower back has been obtained and Neurosurgery has been involved. The hospitalist group is assisting regarding medical management. Infectious Disease has been involved as well as Pulmonary Medicine. She is being treated regarding the bilateral pneumonitis complicated by respiratory failure. ASSESSMENT: 1. Medical complexity with generalized debilitation. 2. Pulmonary rehabilitation. 3. Acute exacerbation of chronic obstructive pulmonary disease. 4. Acute on chronic hypoxic respiratory failure with pneumonia. 5. Premorbid peripheral neuropathy. 6. Recent L3 compression fracture, status post brace. 7. Severe osteoarthritis complicated by vertebral compression fractures. ADDENDUM: The patient's prognosis for significant practical improvement within a reasonable period of time appears good. Given the patient's complex medical condition and risk of further medical complication, rehabilitation services [facility] [address] [place] [address] REHAB UNIT PLAN OF CARE Name: LINA LOMELI Room #: 510-P [facility] IN M.R.#: [id number] Admission: 04/27/21 Attend Phys: Dallin Guerra MD Discharge: Date of : 44 Report #: [id number] could not be safely provide at the lower level of care such as a residential facility. By: [id number] Dallin Guerra MD /nt
[2021-04-27] MEDS ORDERED: IPRAT-ALBUT 0.5-3 ML INH (14:08)
[2021-04-27] MEDS ORDERED: PULMICORT0.5 MG/21 INH (14:09)
[2021-04-27] MEDS ORDERED: LEVOFLOXACIN750 MG PO (14:10)
[2021-04-27 18:26] VITALS: BP 140/67
[2021-04-27 19:30] VITALS: BP 127/70
--- NOTE | 2021-04-28 04:45 | NUR ---
ADMITTED TO ROOM 510. ARRIVED ON UNIT AT 1800 OF 04/27/21 VIA W/C. ASSIST OF 1 USING GAIT BELT TO TRANSFER TO BED. PATIENT IS A&OX4, DENIES ACUTE PAIN OR SOB, BUT MAY HAVE SOB AT EXERTION. ON CONTINUOUS OXYGEN AT 1.5L VIA NC, ON BIPAP OVERNIGHT. LUNGS SOUNDS: WHEEZES IN ALL AREAS, ABLE TO COUGH UP SOME SPUTUM, THAT IS STRINGY WHITISH PER PATIENT. ABD SOFT AND BOWEL SOUNDS HEARD IN 4 QUADRANTS. LAST BM ON 04/27. WEARS BRIEFS DUE TO STRESS INCONTINENCE WHEN EXCESSIVELY COUGHING, PER PATIENT REQUEST. WEARS UPPER AND LOWER DENTURES THAT HER DAUGHTER WILL BRING IN THE MORNING. IV SALINE LOCKED IN LEFT FOREARM, NO S/S OF INFECTION OR INFILTRATION NOTED. INTERMITENT BRADYCARDIA NOTED ON PULSE OXIMITER OVERNIGHT, IN LINE WITH REPORT FROM 2N NURSE. TOLERATED ORAL MEDS WHOLE IN APPLE SAUCE. SCDS ON BLE. NO CONCERNS AT THIS TIME, WILL CONTINUE TO MONITOR.
[2021-04-28 06:07] LABS: HEMATOCRIT 36.4 % (37.0-47.0); HEMOGLOBIN 12.2 gm/dL (12.0-15.0); MCH 32.1 pg (26.0-34.0); MCHC 33.5 g/dL (28.0-37.0); RBC 3.79 mil/uL (4.20-5.00); RDW 15.1 % (10.5-14.5); WBC 12.5 thou/uL (4.0-11.0)
[2021-04-28 06:22] LABS: CALCIUM 8.1 mg/dL (8.5-10.1); CREATININE 0.6 mg/dL (0.6-1.0)
[2021-04-28 06:32] LABS: POTASSIUM 3.2 mmol/L (3.5-5.1)
[2021-04-28 08:00] VITALS: BP 157/78
--- NOTE | 2021-04-28 12:05 | NUR ---
cm s/w pt to complete assessment. pt lives with dtr. pt is home during day alone while dtr is a work. pt's niece something comes over to see about pt, take her outpatient physcial therapy or "help with anything extra." pt is active and independent. pt mainly stays at home as she is "still socially distancing." pt uses cane & walker. pt has hx with hh, but wants outpatient therapy at d/c. pt lives in [facility] ran and inidciated she has no problem navigating stairs to basement or bedrooms. pt's pcp is dr tobar.
[2021-04-28 19:48] VITALS: BP 111/52
--- NOTE | 2021-04-29 01:10 | NUR ---
ASSUMED CARE OF PT AT 1925 ON 04/28/21. PT IS A&OX4. IS ON 1L OF O2/NC & CPAP/BIPAP HS. DENIES PAIN. IS STABLE. CONTINUES WITH EXPIRATORY WHEEZING TO ASCULTAION. CONTINUES ON RT TREATMENTS. IS UP WITH 1 ASSIST, GB, WALKER. FALL PRECAUTIONS & HOURLY ROUNDING CONTINUED THIS SHIFT. LABS & VITALS REVIEWED. PT REQUESTS TO WEAR BRIEFS D/T STRESS INCONTINENCE. PT IS CURRENTLY SLEEPING. IS ABLE TO TURN SELF IN BED. CALL LIGHT WITHIN REACH. WILL CONTINUE TO MONITOR.
--- NOTE | 2021-04-29 08:36 | NUR ---
PT FINISHED WITH OT WITHOUT OXYGEN. PT HAS EXP WHEEZE IN ALL PARMAR. PT UP TO CHAIR FOR BREAKFAST. PT TOOK MEDS WHOLE THIS AM IN APPLESAUCE. PT STATED SHE DOES HAVE A PRODUCTIVE COUGH THAT IS YELLOW. PT LBM 04/28.
--- NOTE | 2021-04-29 13:51 | NUR ---
Cm notified by STRAINER CLEANER that she will need nebulizer and possible outpt sleep study set up for after dc. Will cont following as needed for dc needs.
[2021-04-29 20:08] VITALS: BP 122/71
--- NOTE | 2021-04-30 01:18 | NUR ---
PT ASSESSMENT COMPLETED AND VSS. MEDS GIVEN ORDERED AND WELL TOLERATED. FALL PRECAUTIONS IN PLACE. UP IN CHAIR EARLY DURING THE SHIFT. PT SAT 98-99% ON RA. PULMONARY WAS CONTACTED BY RT AND AGREED THAT PT COULD STAY OFF OF BIPAP AT HS. PT SAT 98% WITH SPOT CHECK ON RA. PT SLEEPING WELL AT THIS TIME. WILL CONTINUE TO MONITOR FREQUENTLY. PT STATES THAT SHE HAS BEEN SICK MANY TIMES THIS YEAR AND THAT EVER TIME SHE GOES HOME SHE GETS SICK SOON AFTER AND NEEDS TO RETURN TO THE HOSPITAL. PT WANTS TO STAY LONGER THIS TIME AND MAKE SURE SHE IS OK.
[2021-04-30 08:00] VITALS: BP 140/65
--- NOTE | 2021-04-30 16:12 | NUR ---
ASSUMED CARE OF PT AT 0700 THIS MORNING. PT IS RECOVERING FROM PNEUMONIA AND HAS IMPROVED IN CONDITION. PT IS SB ASST WITH GB AND WLKR. A/OX4, SKIN INTACT WITH NO TENTING. LIGHT WHEEZING IN UPPER LOBES OTHERWISE CLEAR. ASSESSMENTS CHARTED AND OTHERWISE UNREMARKABLE. CALL LIGHT AND OTHER NEEDS ARE WITHIN REACH. MEDS AND TX GIVEN NEEDED AND SCHEDULED. WILL MONITOR AND NOTE ANY CHANGES.
[2021-04-30 22:00] VITALS: BP 125/48; BP 125/59
--- NOTE | 2021-05-01 01:09 | NUR ---
PT ASSESSMENT COMPLETED AND VSS. MEDS GIVEN ORDERED AND WELL TOLERATED. PRN PAIN MEDICATION HELPFUL FOR ARM PAIN AND GENERALIZED PAIN. ASST WITH REPOSITION FOR COMFORT. SNACK PROVIDED AT HS. PT DENIES NEEDS. SAT WNL ON RA. RT TREATMENTS CONTINUE. SLEEPING WELL. WILL CONTINUE TO MONITOR FREQUENTLY.
[2021-05-01 07:15] VITALS: BP 112/58
--- NOTE | 2021-05-01 09:00 | NUR ---
PT SITTING UP IN CHAIR THIS AM. PT SHOWS NO SOB, PT ON ROOM AIR. PT LUNG PARMAR ARE CLEAR, DID HEAR EXP WHEEZE TO LLL. PT UP WITH WALKER. PT DENIES ANY PAIN AT THIS TIME.
[2021-05-01 19:42] VITALS: BP 116/56
--- NOTE | 2021-05-02 01:24 | NUR ---
PT ASSESSMENT COMPLETED AND VSS. MEDS GIVEN ORDERED AND WELL TOLERATED. FALL PRECAUTIONS IN PLACE. UP TO THE BATHROOM WITH ASST/GAIT/WALKER. VOIDING MODERATE AMOUNT OF URINE. PRN PAIN MEDICATION WORKING WELL FOR GENERALIZED PAIN. SAT WNL ON RA. PRN COUGH MEDICATION HELPFUL. PT SLEEPING WELL. WILL CONTINUE TO MONITOR FREQUENTLY.
[2021-05-02 08:00] VITALS: BP 136/67
--- NOTE | 2021-05-02 10:00 | NUR ---
PT LYING IN BED THIS AM. PT ON ROOM AIR. NO SIGNS OF SOB. PT UP WITH HER PERSONAL WALKER STAND-BY ASSIST. PT DENIES ANY PAIN AT THIS TIME TO BACK. PT TAKES MEDS IN APPLESAUCE.
--- NOTE | 2021-05-02 13:50 | NUR ---
voice message from daughter malou, , cm called malou back. no answer, will cont following as needed for dc needs.
--- NOTE | 2021-05-02 15:22 | NUR ---
PT STATED SHE WOULD LIKE A PAIN PILL FOR PAIN TO BACK OF 4 ON 1-10 SCALE. ADM TRAMADOL 50MG PO FOR PAIN TO BACK.
--- NOTE | 2021-05-02 18:32 | NUR ---
PT HAD A GOOD DAY TODAY WITH THERAPY. PT WALKED IN QUICK WITH WALKER AND ON ROOM AIR. PT TOLERATED WELL.
[2021-05-02 19:29] VITALS: BP 103/54
--- NOTE | 2021-05-03 01:55 | NUR ---
PT ASSESSMENT COMPLETED AND VSS. MEDS GIVEN ORDERED AND WELL TOLERATED. FALL PRECAUTIONS IN PLACE. UP TO THE BATHROOM WITH ASST/GAIT/WALKER. STEADY. PRN PAIN MEDICATION WORKING WELL. SAT WNL ON RA. PT SLEEPING WELL. WILL CONTINUE TO MONITOR FREQUENTLY.
[2021-05-03 07:15] VITALS: BP 138/62
--- NOTE | 2021-05-03 11:55 | NUR ---
ASSUMED CARE AT 0700. PATIENT IS ALERT AND ORIENTED X4. PATIENT CORDOVA'S, ENFORCEMENT OFFICER ARE EQUAL. LUNGS ARE DEMINISHED WITH EXP WHEEZES AND PRODUCTIVE COUGH. PATIENT CONTINUES ON COUGH MED. PATIENT CONTINUES ON RESPIRATORY TX. PATIENT ABD IS SOFT WITH BSX4. PATIENT IS UP WITH ASSIST OF 1 WITH GAIT BELT AND WALKER. PATIENT CONTINUES ON PO ABT WITHOUT ADVERSE AFFECTS. UP IN THE CHAIR FOR MEALS. FALL AND SAFETY PROTOCOLS IN PLACE. C/O LOW BACK PAIN. MEDICATED WITH SCED PAIN PATCH. CONTINUES TO PROGRESS TOWARDS D/C GOALS. WILL CONTINUE TO MONITER.
--- NOTE | 2021-05-03 13:01 | NUR ---
Team meeting recommendation has 13 steps to enter the home, ranch still home. Then no stairs inside she must do . DC 05/09 hh ( pt, ot, nursing). Speech eval and have pt call for her medication. need rx for nebulizer and possible will need outpt sleep study after dc home.
[2021-05-03 19:42] VITALS: BP 110/58
--- NOTE | 2021-05-04 02:09 | NUR ---
Assumed care on 05/03/21 @ 1900, seated @ bedside, A&Ox4, breath sounds diminished, R.T. provided respiratory treatment. SpO2 94% before, and 99% after TX. VSS, Stand by assist to ambulate to BRP with personal walker, gait belt worn to ambnulate. Compliant with meds, taking meds whole in applesauce with thin water. PRN Tramadol 50mg provided @ 20:15 for 6/10 back pain, upon follow up assessment, noted to be sleeping. Call light within reach, will continue to monitor for safety and comfort as per unit protocol.
--- NOTE | 2021-05-04 07:55 | NUR ---
ASSUMED CARE AT 0700. PATIENT IS ALERT AND ORIENTED X4. PATIENT CORDOVA'S, BEHAVIORAL HEALTH CONSULTANT ARE EQUAL. UP WITH 1 WITH WALKER, AND GAIT BELT. LUNGS ARE DEMINISHED WITH OCCASIONAL COUGH. CONTINUES ON PDC, AND RESPIRATORY TX. ABD IS SOFT WITH BSX4. UP TO THE BATHROOM TO VOID LEIGH COLORED URINE. FALL AND SAFETY PROTOCOLS IN PLACE. C/O BACK PAIN. MEICATED WITH SCED PAIN PATCH AND PRN PAIN MED. CONTINUES TO PROGRESS TOWARDS D/C GOALS. WILL CONTINUE TO MONITER.
[2021-05-04 08:00] VITALS: BP 140/67
--- NOTE | 2021-05-04 14:43 | NUR ---
cm called daughter malou spence [phone], unable to leave message r/t mail box is full.
[2021-05-04 19:17] VITALS: BP 109/58
--- NOTE | 2021-05-05 01:12 | NUR ---
PT ASSESSMENT COMPLETED AND VSS. MEDS GIVEN ORDERED AND WELL TOLERATED. PT NOW A WHITE BELT. PRN PAIN MEDICATION WORKING WELL. SAT WNL ON RA. PT DENIES NEEDS. SLEEPING WELL. WILL CONTINUE TO MONITOR FREQUENTLY.
[2021-05-05 08:00] VITALS: BP 144/74
--- NOTE | 2021-05-05 08:13 | NUR ---
ASSUMED CARE AT 0700. PATIENT IS ALERT AND ORIENTEDX4. PATIENT CORDOVA'S, SAGGER FILLER ARE EQUAL. LUNGS ARE DEMINISHED WITH OCCASIONAL WHEEZE, AND OCCASIONAL COUGH. PATIENT CONTINUES ON RESPIRATORY TX. ABD IS SOFT AND PATIENT IS WHITE BELT AND DOEN'T REQUIRES ALARMS. UP TO THE BATHROOM WITH ASSIST OF 1 STAFF AND GAIT BELT TO VOID LEIGH COLORED URINE. FALL AND SAFETY PROTOCOLS IN PLACE. C/O LOW BACK PAIN. MEDICATED WITH SCED PAIN PATCH. CONTINUES TO PROGRESS TOWARDS D/C GOALS. WILL CONTINUE TO MONITER.
[2021-05-05 20:00] VITALS: BP 123/72
--- NOTE | 2021-05-06 02:40 | NUR ---
PT ASSESSMENT COMPLETED AND VSS. MEDS GIVEN ORDERED AND WELL TOLERATED. PRN PAIN MEDICATION WORKING WELL FOR GENERALIZED PAIN. MOD I IN ROOM. PT STEADY WITH WALKER WHEN UP. PT DENIES NEEDS. SLEEPING WELL. WILL CONTINUE TO MONITOR FREQUENTLY.
[2021-05-06 06:26] LABS: BASOPHILS 0.2 % (0.0-2.0); EOSINOPHILS 3.7 % (0.0-3.0); HEMATOCRIT 33.8 % (37.0-47.0); HEMOGLOBIN 11.3 gm/dL (12.0-15.0); LYMPHOCYTES 50.9 % (24.0-44.0); MCH 32.7 pg (26.0-34.0); MCHC 33.3 g/dL (28.0-37.0); MCV 98.4 fL (80.0-100.0); MONOCYTES 5.6 % (1.0-8.0); PLATELET COUNT 274 thou/uL (150-400); POLYS 39.6 % (36.0-66.0); RBC 3.44 mil/uL (4.20-5.00); RDW 16.1 % (10.5-14.5); WBC 7.6 thou/uL (4.0-11.0)
[2021-05-06 06:39] LABS: CALCIUM 8.3 mg/dL (8.5-10.1); CREATININE 0.6 mg/dL (0.6-1.0); MAGNESIUM 2.2 mg/dL (1.8-2.4); POTASSIUM 4.2 mmol/L (3.5-5.1)
[2021-05-06 08:00] VITALS: BP 133/66
--- NOTE | 2021-05-06 13:27 | NUR ---
Chart review, cont. with discharge planning as needed. Anticipated dc on with home health vs outpt therapy at [facility]. BPCI. Will need home nebulizer and possible need outpt sleep study? She still wants outpt, not hh they do not do much for you therapy [facility] per Korina.
[2021-05-06] MEDS ORDERED: TRAMADOL 50 MG50 MG PO (14:21)
--- NOTE | 2021-05-06 19:04 | NUR ---
PT ALERT AND ORIENTED TIMES FOUR. VSS. PT C/O BACK PAIN PRN PAIN MEDICATIONS GIVEN WITH GOOD RELEIF. PT WORKED WELL WITH PT/OT. PT MOD I IN ROOM WITH STEADY GAIT. PT TOLERATES MEDS AND MEALS. SPOKE WITH PT DAUGHTER THIS AFTERNOON TO UPDATE ON CARE. PT PROGRESSING TOWRADS POC GOALS.
--- NOTE | 2021-05-07 00:56 | NUR ---
PT ASSESSMENT COMPLETED AND VSS. MEDS GIVEN ORDERED AND WELL TOLERATED. PT STEADY WHEN UP WITH WALKER. VOIDING MODERATE AMOUNT OF YELLOW URINE. SNACK PROVIDED AT HS. SAT WNL ON RA. SLEEPING WELL AT THIS TIME. WILL CONTINUE TO MONITOR FREQUENTLY.
[2021-05-07 04:48] VITALS: BP 122/55
[2021-05-07 07:15] VITALS: BP 107/59
--- NOTE | 2021-05-07 15:23 | NUR ---
ASSUMED CARE AT 0700. PATIENT IS ALERT AND ORIENTED X4. PATIENT CHUCKIE'S, TURBINE MECHANIC ARE EQUAL. LUNGS ARE DEMINISHD. PATIENT CONTINUES ON RESPIRATORY TX. PATIENT IS MOD/I IN ROOM WITH HER WALKER. UP IN THE CHAIR FOR MEALS. FALL AND SAFETY PROTOCOLS INPLACE. C/O BACK PAIN. MEDICATED WITH PRN PAIN MED. CONTINUES TO PROGRESS TOWARDS D/C GOALS. WILL CONTINUE TO MONITER.
[2021-05-07 17:30] VITALS: BP 119/59
--- NOTE | 2021-05-08 00:52 | NUR ---
assumed care approx 1899 evening 05/07. pt alert an oriented x4, pleasant and cooperative. pt modified indep in room tolerating well. pt took hs meds with water tolerating well. pt appears to be sleeping soundly. call light in reach. will continue to monitor.
--- NOTE | 2021-05-08 05:57 | NUR ---
assumed care approx 1899 evening 05/07. pt alert and oriented x4, pleasant and cooperative. pt modified indep in her room tolerating well. pt took meds with water and applesauce tolerating well. pt slept well this night off and on. call light in reach. will continue to monitor.
[2021-05-08 07:25] VITALS: BP 118/60
--- NOTE | 2021-05-08 07:52 | NUR ---
ASSUMED CARE AT 0700. PATIENT IS ALERT AND ORIENTED X4. PATIENT CORDOVA'S, MOTOR BOSS ARE EQUAL. LUNGS ARE CLEAR. PATIENT CONTINUES ON RESPIRATORY TX. ABD IS SOFT WITH BSX4. PATIENT IS MOD/I IN ROOM WITH WALKER. UP IN CHAIR FOR MEALS. FALL AND SAFETY PROTOCOLS IN PLACE. C/O PAIN IN THIGHS. MEDICATED WITH PAIN PATCH. CONTINUES TO PROGRESS TOWARDS D/C GOALS. WILL CONTINUE TO MONITER.
[2021-05-08 19:32] VITALS: BP 138/69
--- NOTE | 2021-05-09 04:58 | NUR ---
ASSUMED CARE AT 1900 OF 05/08. PATIENT IS A&OX4, DENIES SOB. REPORTS PAIN IN LOWER BACK, AND BACK OF THIGHS. PATIENT DESCRIBES PAIN FEELS LIKE A NERVE PAIN, SORE AND ACHING DEEPER THAT MUSCLE OR DERMAL PAIN. DENIES PAIN WHEN TOUCHED, NO CHANGE IN TEMP TO THE SURFACE OF BLE, NO REDNESS OR SWELLING NOTED. PATIENT MENTIONED SHE USED TO TAKE BACLOFEN PREVIOUSLY DUE TO LUMBAR ISSUES, AND SHE THINKS THAT RESTARTING BACLOFEN MAY HELP MANAGE THIS PAIN. PRN TRAMADOL ADMINISTERED TO MANAGE PAIN, PATIENT REPORTS PARTIAL PAIN RELEIF. MODIFIED INDEPENDENT IN ROOM, USES WALKER FOR AMBULATION. SLEEPING ON AND OFF DURING HOURLY ROUNDS, CALL LIGHT W/IN REACH, WILL CONTINUE TO MONITOR.
[2021-05-09 08:15] VITALS: BP 122/59
[2021-05-09] MEDS ORDERED: NEBULIZER MISCELL ×2 (08:25→10:31)
[2021-05-09] MEDS ORDERED: PULMICORT0.5 MG/21 INH (09:05)
[2021-05-09] MEDS ORDERED: IPRAT-ALBUT 0.5-3 ML INH (09:05)
[2021-05-09 09:28] VITALS: BP 122/59
--- NOTE | 2021-05-09 09:32 | NUR ---
HH referral sent to [facility] and nebulizer referral sent to [facility]. Bedside nurse is going to check with patient to see if her daughter is going to be able to bring her home today?
--- NOTE | 2021-05-09 12:15 | NUR ---
ASSUMED CARE AT 0700. PATIENT IS ALERT AND ORIENTEDX4. PATIENT CORDOVA'S, CLIN TECH ARE EQUAL. LUNGS ARE CLEAR AND DEMINISHED. PATIENT IS ON RESPIRATORY TX. PATEINT RECIEVED HOME NEBULIZER MACHINE FOR D/C TODAY. PATIENT UP IN CHAIR FOR MEALS. PATIENT ABD IS SOFT WITH BSX4. PATIENT HAD BM YESTERDAY. PATIENT IS MOD/I IN ROOM WITH ROLLING WALKER. PATIENT IS VOIDING LEIGH COLORED URNE. FALL AND SAFETY PROTOCOLS IN PLACE. C/O PAIN IN HER LEFT THIGH. MEDICARED WITH PRN PAIN MED, AND LIDOCAINE PATCH. PATIENT CONTINUES TO PROGRESS TOWARDS D/ C GOALS. PATIENT IS AMBULATING IN QUICK WITH GAIT BELT WALKER WITH SBA. WILL COONTINUE TO MONITER.
[2021-05-09 12:34] VITALS: BP 122/59
--- NOTE | 2021-05-09 12:48 | NUR ---
PT NOTE FOR 05/03/21: PT WAS SEEN FOR DIRECT PT TIME 37 MINUTES.
--- NOTE | 2021-05-09 15:37 | NUR ---
GAMBRELER CONTACTED PATIENT'S DAUGHTER, JOSSELYN, AND EDUCATED HER RE: NEED FOR ASSISTANCE WITH MANAGING MEDICATION AND FINANCES UPON RETURN HOME. SHE STATED UNDERSTANDING AND WAS AGREEABLE BUT NOTED SHE HAS A FULL-TIME JOB AND THEREFORE WILL BE SOMEWHAT LIMITED IN HOW MUCH SHE IS ABLE TO ASSIST. GAMBRELER RECOMMENDED SHE AT MINIMUM ASSIST PATIENT WITH SETTING UP HER PILLS AND CHECK TO MAKE SURE SHE HAS TAKEN THEM ON TIME EVEN IF THE CHECK-IN HAS TO BE MADE BY PHONE CALL. GAMBRELER ALSO SUGGESTED ENLISTING OTHER FAMILY/FRIENDS TO CHECK IN ON PATIENT NEEDED. PATIENT'S DAUGHTER STATED SHE HAS BEEN CONSIDERING HAVING THE PATIENT MOVE TO AN RETIREMENT DUE TO RECURRENT HOSPITALIZATIONS.
--- NOTE | 2021-05-09 16:44 | NUR ---
DISCHARGE INSTRUCTIONS GIVEN TO PATIENT. PATIENT VERBALIZED UNDERSTANDING OF D/C INSTRUCTIONS. DAUGHTER HERE. PATIENT LEFT WITH ALL OF HER BELONGINGS PATIENT WAS INDEDPENDENT WITH WALKER FROM BED TO W/C. PATIENT WAS INDEPENDENT WITH TRANSFER FROM W/C TO DAUGHTER'S CAR.
[2021-05-10] MEDS ORDERED: PULMICORT0.5 MG/21 INH (11:12)
[2021-05-10] MEDS ORDERED: IPRAT-ALBUT 0.5-3 ML INH (11:12)
--- NOTE | 2021-05-11 15:07 | HC ---
[facility] [place] [address] CONSULTATION Name: LINA LOMELI Room #: 510-P [facility] IN M.R.#: [id number] Admission: 04/27/21 Attend Phys: Dallin Guerra MD Discharge: 05/09/21 Date of : 44 Report #: [id number] THIS REPORT FOR: cc: Dallin Urias MD, David A. MD Deutch,Aniceto Yun. PhD ~ DATE OF SERVICE: 05/01/2021 ATTENDING PHYSICIAN: Dallin Guerra M.D. CLEARING SUPERVISOR: Aniceto Holder, PhD CLINICAL PRESENTATION: The patient is a 80-year-old -[place] female admitted to [facility] initially on 04/19/2021 with worsening shortness of breath. She was diagnosed with an acute on chronic hypoxic respiratory failure, COPD and atypical pneumonia. She was admitted to [address] [place] [address] following acute medical care. Her assessment on admission to the rehabilitation unit was medical complexity with generalized debilitation, pulmonary rehabilitation, AE COPD, acute on chronic hypoxic respiratory failure with pneumonia, premorbid peripheral neuropathy and a recent L3 compression fracture, status post brace. A complete description of her medical condition and history can be found in her medical record. Neuropsychological consultation was requested to provide assistance in the assessment of cognitive and emotional status and provide recommendations and services. Prior to this most recent admission, she was living independently with her daughter in her home. The patient was driving and reports managing her medication and finances independently. She has 2 children. 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 The patient reportedly attended nursing school at [employer] and had acquired specialized training at [employer]. She has not reported a history of having prior treatment for depression or anxiety. TECHNIQUES UTILIZED: Clinical interview, review of medical records, staff consultation and behavioral observation, mini mental status exam 2 standard version, clock drawing and verbal fluency assessment. EXAMINATION PROCEDURE: The patient was alert and cooperative with the assessment. She does not report auditory or visual hallucinations. There is no evidence of thought disorder. She does not have suicidal ideation or symptoms suggesting aphasia. She describes her symptoms to include decreased appetite and difficulty with sleep. She does not report problems with anxiety, depression, memory or verbal [facility] [address] [place] [address] CONSULTATION Name: LINA LOMELI Room #: 510-P [facility] IN .R.#: [id number] Admission: 04/27/21 Attend Phys: Dallin Guerra MD Discharge: 05/09/21 Date of : 44 Report #: [id number] fluency. She stopped driving last year because of weakness in her legs. Other than that, she has been independent with instrumental and basic activities of daily living. Her performance on the MMSE 2 brief version suggests a mild impairment with a raw score of 13 and 16. She was 3/3 for initial registration, 5/5 for orientation to time and place. She was 0/3 for immediate recall of 3 items after a brief time delay and distraction. Performance on the MMSE 2 standard version is within normal limits with a raw score 27/30. She was 5/5 for serial sevens, 2/2 for naming, 1/1 for repetition, 3/3 for comprehension. She could read and follow a single command, write a sentence and copy a simple geometric design. The patient's clock drawings within normal limits. Letter fluency was within normal limits with a raw score of 31, scaled score of 11. Animal fluency was within normal limits with a raw score of 25 and percentile rank of 13. 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 She has exceptionally high premorbid functioning, which allows her to compensate efficiently for areas of deficit. She may benefit from some increased assistance and monitoring of medications upon her return home to ensure accuracy and maintain safety. Strategies to assist in compensation for variability in memory would also be helpful. Outpatient neuropsychological testing to clarify cognitive functioning may be of benefit. Thank you very much for allowing me to provide the consultation on this patient. <ELECTRONICALLY SIGNED> By: Aniceto Holder, PhD 05/11/21 [id number] Aniceto Holder, PhD /nt
== END 2021-05-09 16:48 | disposition home health service (06) | DRG 947 ==
PROVIDERS: Nurse Practitioner; Nurse Practitioner Family; ADMIT Physical Medicine & Rehabilitation; ATTEND Physical Medicine & Rehabilitation
PROC: 5A09357 Assistance with Respiratory Ventilation, Less than 24 Consecutive Hours, Continuous Positive Airway Pressure (ICD-10-PCS; principal; 2021-04-27)
PROC: 5A09357 Assistance with Respiratory Ventilation, Less than 24 Consecutive Hours, Continuous Positive Airway Pressure (ICD-10-PCS; 2021-04-28)
PROC: 5A09357 Assistance with Respiratory Ventilation, Less than 24 Consecutive Hours, Continuous Positive Airway Pressure (ICD-10-PCS; 2021-04-29)
DX: R53.81 Other malaise (principal); J96.21 Acute and chronic respiratory failure with hypoxia; J18.9 Pneumonia, unspecified organism; J44.1 Chronic obstructive pulmonary disease with (acute) exacerbation; J44.0 Chronic obstructive pulmonary disease with (acute) lower respiratory infection; E46 Unspecified protein-calorie malnutrition; M48.56XA Collapsed vertebra, not elsewhere classified, lumbar region, initial encounter for fracture; I10 Essential (primary) hypertension; M19.90 Unspecified osteoarthritis, unspecified site; G62.9 Polyneuropathy, unspecified; Z96.611 Presence of right artificial shoulder joint; G89.29 Other chronic pain; J32.9 Chronic sinusitis, unspecified; K21.9 Gastro-esophageal reflux disease without esophagitis; M81.0 Age-related osteoporosis without current pathological fracture; M54.16 Radiculopathy, lumbar region; Z88.1 Allergy status to other antibiotic agents; Z90.710 Acquired absence of both cervix and uterus; Z98.41 Cataract extraction status, right eye; Z98.42 Cataract extraction status, left eye; Z88.8 Allergy status to other drugs, medicaments and biological substances; Z91.018 Allergy to other foods; Z68.20 Body mass index [BMI] 20.0-20.9, adult
CPT/HCPCS: 10112

== ENCOUNTER 2021-06-01 21:07 | Inpatient (IN) | payer OTHER ==
[~2021-06-01] VITALS: Ht 165.1 cm; Wt 59.2 kg
[~2021-06-01 21:07] MED LIST changes: +LEVOFLOXACIN750 MG PO; +NEBULIZER MISCELL; +PULMICORT0.5 MG/21 INH
[2021-06-01 21:20] VITALS: BP 163/61
[2021-06-01 21:53] LABS: BE(vivo) -3.7 mmol/L (-2 to +3); HCO3 23.7 mmol/L (22.0-26.0); PCO2 52.9 mmHg (35.0-45.0); PO2 139.5 mmHg (80.0-100.0); sO2 98.4 % (92.0-98.0)
[2021-06-01 21:54] LABS: HEMATOCRIT 38.1 % (37.0-47.0); HEMOGLOBIN 13.3 gm/dL (12.0-15.0); MCHC 34.9 g/dL (28.0-37.0); MCV 97.5 fL (80.0-100.0); PLATELET COUNT 248 thou/uL (150-400); RBC 3.91 mil/uL (4.20-5.00); RDW 14.3 % (10.5-14.5); WBC 29.8 thou/uL (4.0-11.0)
[2021-06-01 22:02] LABS: CALCIUM 8.6 mg/dL (8.5-10.1); CREATININE 0.9 mg/dL (0.6-1.0); POTASSIUM 3.5 mmol/L (3.5-5.1)
[2021-06-01 22:44] LABS: ABSOLUTE NEUTROPHILS 11.9 thou/uL (1.4-8.2)
[2021-06-01 22:45] LABS: ANISOCYTOSIS 1+; PLATELET ESTIMATE NORMAL; POIKILOCYTOSIS 1+
[2021-06-02] VITALS (7 sets, daily range): BP systolic 113–141; BP diastolic 50–67
--- NOTE | 2021-06-02 06:41 | NUR ---
PT ARRIVED TO THE UNIT AT AROUND 0515HRS. ADMISSION COMPLETED. PT ALERT AND ORIENTED. WITH HYPOXIC RESP FAILURE, GETS SOA EVEN WHEN TALKING SO PLACED ON /NC FOR COMFORT -OTHERWISE PT SATTING AT 98% ON ROOM AIR.ALERT AND ORIENTED. VERY PLEASNT AND COOPERATIVE. GIVEN TYLENOL FOR CHRONIC BACK PAIN. FALL PREC IN PLACE. CALL LIGHT WITHIN REACH.
--- NOTE | 2021-06-02 16:37 | NUR ---
Case openned to follow for dc planning. Pt known to cm from recent dc home 05/09 with hh after 5N acute rehab stay. The pt lives with her dtr Joy [place] with 13 step to enter. She is able to stay on the main level. She has a nebulizer and FWW at home. [facility] is her hh agency and they are aware of her admission. PCP is Dr. Dallin Urias. The pt is admitted for hypoxic respiratory failure and chest pain. She is now on room air but sob with conversation. PT/OT tejas requested. Pt's dtr called and requested referrals to [facility] for snf/ltc placement as well as any residential options for medicaid grants. Options reviewed. [facility] contacted and they are familiar with the pt from a stay last year. Clinical updated faxed. They will call the pt's dtr to discuss ltc options. Phyllis at [facility] also contacted as they have SNF/RCF options available. Dtr provided with both contact numbers to discuss the finances and placement. DTr to f/u with pt this evening to determine if they want to pursue this or return home with hh. Pt's dtr works outside the home and is sometimes out of town on the weekend. She is concerned that the pt is not safe to be alone for that much time and that grand kids are not able to be there as much as in the past. The pt is hoping to feel better and try to return home with hh. They will discuss and advise on their decision.
--- NOTE | 2021-06-02 17:29 | NUR ---
PT AX0X4. PT ON ROOM AIR AT THIS TIME AND DENIES COMPLAINTS OF SHORTNESS OF AIR. C/O PAIN, ADMINISTERED TRAMADOL FOR PAIN RELIEF; PATIENT STATED THAT THIS HELPED WITH HER PAIN. PT RESTING COMFORTABLY IN BED AT THIS TIME. FALL PRECAUTIONS ARE IN PLACE AND EDUCATION PROVIDED. CALL LIGHT AND PERSONAL BELONGINGS WITHIN REACH. DENIES ANY OTHER NEEDS AT THIS TIME.
--- NOTE | 2021-06-03 03:10 | NUR ---
2100 NOTIFIED DAUGHTER HAD CALLED FOR UPDATE. 2154 ATTEMPTED TO CALL DAUGHTER, NO ANSWER, MESSAGES FULL. 2229 ATTEMPTED TO CALL DAUGHTER, NO ANSWER, MESSAGES FULL. 0315 SLEPT PART OF SHIFT. UP TO BATHROOM WITH STAND BY ASSIST. STATES PAIN IS ALWAYS AROUND A 3, TRAMODOL GIVEN NEEDED FOR PAIN. BENADRYL GIVEN FOR COMPLAINTS OF ITCHING. RASH RED ON TRUNK AND ARMS, PATIENT STATES IT IS BETTER. WORKING ON GOALS AND PLAN OF CARE FOR NOC. CONTINUE TO ASSES CLOSELY.
[2021-06-03 04:32] VITALS: BP 120/52
[2021-06-03 05:15] LABS: HEMATOCRIT 31.2 % (37.0-47.0); MCH 36.2 pg (26.0-34.0); MCHC 35.9 g/dL (28.0-37.0); MCV 100.8 fL (80.0-100.0); RBC 3.09 mil/uL (4.20-5.00); RDW 14.3 % (10.5-14.5)
[2021-06-03 05:31] LABS: HEMOGLOBIN 11.2 gm/dL (12.0-15.0); WBC 13.3 thou/uL (4.0-11.0)
[2021-06-03 05:51] LABS: CALCIUM 8.1 mg/dL (8.5-10.1); CREATININE 0.8 mg/dL (0.6-1.0); POTASSIUM 3.2 mmol/L (3.5-5.1)
--- NOTE | 2021-06-03 07:45 | NUR ---
0730 daughter returned call this am. update given and spoke with her for 5 minutes.
[2021-06-03 08:00] VITALS: BP 109/55
--- NOTE | 2021-06-03 15:15 | NUR ---
Dtr on her way to visit with the pt to decide whether to return home with [facility] or to go to [facility]/LTC. [facility] can accept for both. [facility] is following. Both are aware of possible weekend dc. [facility] [phone], fax [phone] [facility] [phone] angelique ivy to arrange wkend admission/ w/c van, fax [phone], report [phone].
[2021-06-03 16:26] VITALS: BP 115/60
--- NOTE | 2021-06-03 17:46 | NUR ---
Assumed care of pt this AM. Pt is A&O x4, forgetful. Pt scheduled to have cardiac cath today. Pt had paroxysmal afib during cath, received pt back from collaborative physician anxious w/ HTN & chest pain. Dr. Rocha notified. EKG done showing no acute process. Morphine 2mg ordered, but not ordered as pt stated that chest pain was gone after EKG. Bed rest ended at 1400. Rt groin site is clean, dry, & intact. Pt currently on 2L NC. Up to bathroom w/ cane & 1 assist. Pt educated to continue to call before getting out of bed. Denies any further CP at this time. Fall precautions in place.
--- NOTE | 2021-06-03 17:49 | NUR ---
Assumed care of pt this AM. Pt is A&O x4. Currently on RA. PRN Tramadol & benadryl given throughout the day. Complains of no CP, SR on the monitor. Pt coughing up thick lezama sputum today. Up x 1 to the bathroom. Sat in chair most of day. No other complaints at this time.
[2021-06-03 19:10] VITALS: BP 124/61
[2021-06-04 04:48] VITALS: BP 123/53
[2021-06-04 07:40] VITALS: BP 132/65
--- NOTE | 2021-06-04 07:42 | NUR ---
PT REMAINS ON RA WITH PRN PAIN MEDS FOR BACK PAIN GIVEN NEEDED, VSS, REPORT GIVEN TO NEXT SHIFT TO CON'T PPOC.
[2021-06-04 10:59] LABS: APTT 25.9 Seconds (24.5-32.8); INR 1.12; PROTIME 12.1 Seconds (10.5-12.1)
[2021-06-04 15:40] VITALS: BP 144/74
--- NOTE | 2021-06-04 18:26 | NUR ---
Assumed care of pt this AM. Pt is A&O x4, pleasant. Currenly on RA, denies any chest pain. Up STB w/ walker. Up to chair for part of day. Eating more now that she has menu to choose what she wants. Continuing PRN medication for pain; didn't need as much benadryl today, states that itching is less & less rash visible. Fall precautions in place.
[2021-06-04 19:27] VITALS: BP 122/59
[2021-06-05 04:14] VITALS: BP 135/72
--- NOTE | 2021-06-05 05:20 | NUR ---
SLEPT MOST OF SHIFT. UP TO BATHROOM WITH STANDBY ASSIST NEEDED USING WALKER. WORKING ON GOALS AND PLAN OF CARE FOR NOC. PROGRESSING SLOWLY. STATES FEELS CHRONIC BACK PAIN AND TRAMADOL GIVEN. STATES SHORTNESS OF AIR IS BETTER. CONTINUE TO ASSES.
[2021-06-05 08:13] VITALS: BP 153/71
--- NOTE | 2021-06-05 09:25 | NUR ---
Assumed care of pt this AM. Pt is A&O x4, on RA. Denies any current chest pain. Pt is up SBA to bathroom w/ walker. Pt good about calling when needing to ambulate. SR on monitor. Pt requested PRN benadryl this AM for itching & congestion. Will continue to assess pt needs throughout the day.
[2021-06-05 10:23] VITALS: BP 135/67
--- NOTE | 2021-06-05 11:10 | NUR ---
PT ARRIVED TO FLOOR. PT UP WITH WALKER WITH STAND-BY ASSIST. PT DID NOT COMPLAIN OF ANY PAIN TO BACK OR LEFT LEG. PT STATED SHE WAS HERE 05/09- AND DISCHARGED TO HOME. PT STATED SHE WAS STARTED ON LYRICA AND THAT SHE GOT A REACTION FROM MEDICATION VIA RASH AND SOB. PT IS ON ROOM AIR AT THIS TIME. PT A/O X4.
[2021-06-05 15:15] VITALS: BP 131/64
--- NOTE | 2021-06-05 17:59 | NUR ---
ADM TRAMADOL 50MG PO FOR PAIN TO BACK OF 3.5 ON 1-10 SCALE. PT UP TO BATHROOM AT THIS TIME SLOW GAIT WITH WALKER.
[2021-06-05 19:19] VITALS: BP 134/62
[2021-06-06 04:57] VITALS: BP 125/59
[2021-06-06 09:15] VITALS: BP 125/59
--- NOTE | 2021-06-06 13:44 | NUR ---
PER DR HOLLIDAY, PT IS IN NEED OF NEUROSPINE SURGERY FOR L3. DR HARMAN IS ON VANCATION AT THIS TIME AND STATES PT SHOULD TRANSFER TO [facility] [place] FOR [place]. THIS ORDNANCE ARTIFICER ATTEMPTED TO INITIATE TRANSFER THIS MORNING, HOWEVER [facility] TRANSFER CENTER STATES [facility] [place] [place] IS ON DIVERSION TO ALL ADMISSIONS AT THIS TIME. DR HOLLIDAY UPDATED AND STATES SHE CAN TRANSFER TOMORROW. PRIMARY RN UPDATED.
[2021-06-06 15:53] VITALS: BP 119/60
[2021-06-06 19:24] VITALS: BP 121/56
[2021-06-07 04:45] VITALS: BP 131/63
[2021-06-07 08:00] VITALS: BP 132/64
--- NOTE | 2021-06-07 16:28 | NUR ---
ASSUMED CARE AT SHIFT CHANGE. PT A/O X4. CALM AND PLESANT TODAY. UP WITH WALKER TO BATHROOM WITH STEADY GAIT, GOOD ENDURANCE. DENIES SOA. MINIMAL PAIN WITH MOVEMENT AND AMBULATION PER PT STATES IT IS TOLERABLE. PT UP TO CHAIR THIS AFTERNOON FOR A COUPLE HOURS. VSS. ASSESSMENTS PER CHART. WILL CONT TO MONITOR AND FOLLOW POC.
[2021-06-07 16:45] VITALS: BP 110/54
--- NOTE | 2021-06-07 17:13 | NUR ---
CM CALLED [facility] [place] ON DIVERSION. NO THERAPY ORDERED SO CAN'T GET PT TO SKILLED. CM FOLLOWIONG
[2021-06-07 19:45] VITALS: BP 122/61
--- NOTE | 2021-06-08 00:54 | NUR ---
pt reports feeling alright. c/o pain to legs-tolerable. Up to the bathroom with sba, voiding okay. Occasional cough with wheezing. On room air, satting okay.Calls with needs.
[2021-06-08 09:15] VITALS: BP 146/70
--- NOTE | 2021-06-08 12:22 | NUR ---
A/O X 4. Room air bilateral wheezing lungs. One assist with walker. Right AC IV saline locked. 1 + bilateral leg edema. Meds with applesauce. D/C today but patient and daughter are not on the same page, skilled nursing case manager Dilcia is going to speak with both parties
--- NOTE | 2021-06-08 16:49 | NUR ---
DC'd this afternoon at 4pm via w/c van to snf at [facility]. Dr. Figueroa is not able to do surgery for 1-2 weeks. Pt to f/u with his molded goods spot picker to schedule appt and setup surgery plan. Dr. Tate to see pt in his office on sunday at 9:30. Pt, dtr and giovanni in admissions at [facility] aware of above. Pt going to snf for continued therapy and pain mgnt. 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 Pt and dtr agreeable to the dc. Repeat covid not needed per giovanni at [facility]. Dc orders faxed to Giovanni and chart copy sent with the pt. Nursing called report.
== END 2021-06-08 16:18 | DRG 871 ==
LOC: ER 21:07 → 2N 22:20 → EROBS 22:20 → 2N 06-02 04:56 → 4S 06-05 10:13
PROVIDERS: Emergency Medicine; Nurse Practitioner Family; ADMIT Hospitalist; ATTEND Hospitalist
DX: A41.9 Sepsis, unspecified organism (principal); J96.01 Acute respiratory failure with hypoxia; J18.9 Pneumonia, unspecified organism; J96.02 Acute respiratory failure with hypercapnia; J44.1 Chronic obstructive pulmonary disease with (acute) exacerbation; J44.0 Chronic obstructive pulmonary disease with (acute) lower respiratory infection; M48.56XA Collapsed vertebra, not elsewhere classified, lumbar region, initial encounter for fracture; H40.9 Unspecified glaucoma; I10 Essential (primary) hypertension; J84.10 Pulmonary fibrosis, unspecified; R59.0 Localized enlarged lymph nodes; R91.8 Other nonspecific abnormal finding of lung field; M48.061 Spinal stenosis, lumbar region without neurogenic claudication; D72.10 Eosinophilia, unspecified; G89.29 Other chronic pain; L27.1 Localized skin eruption due to drugs and medicaments taken internally; T42.6X5A Adverse effect of other antiepileptic and sedative-hypnotic drugs, initial encounter; M54.9 Dorsalgia, unspecified; Z96.611 Presence of right artificial shoulder joint; M19.90 Unspecified osteoarthritis, unspecified site; Z20.822 Contact with and (suspected) exposure to COVID-19; Z90.710 Acquired absence of both cervix and uterus; Z87.01 Personal history of pneumonia (recurrent); Z98.42 Cataract extraction status, left eye; Z98.41 Cataract extraction status, right eye; Z86.018 Personal history of other benign neoplasm; Z79.899 Other long term (current) drug therapy; Z88.1 Allergy status to other antibiotic agents; Z91.048 Other nonmedicinal substance allergy status; Z79.52 Long term (current) use of systemic steroids; Y92.89 Other specified places as the place of occurrence of the external cause
CPT/HCPCS: 10081; 10100; 10195

== ENCOUNTER 2021-07-17 11:41 | Inpatient (IN) | payer OTHER ==
[~2021-07-17] VITALS: Ht 165.1 cm; Wt 60.3 kg
[2021-07-17 12:00] VITALS: BP 171/85
[2021-07-17 12:18] LABS: HEMATOCRIT 42.3 % (37.0-47.0); MCH 30.7 pg (26.0-34.0); MCHC 33.2 g/dL (28.0-37.0); MCV 92.5 fL (80.0-100.0); PLATELET COUNT 284 thou/uL (150-400); RBC 4.57 mil/uL (4.20-5.00)
[2021-07-17 12:22] LABS: CALCIUM 8.9 mg/dL (8.5-10.1); CREATININE 0.6 mg/dL (0.6-1.0); POTASSIUM 3.4 mmol/L (3.5-5.1)
[2021-07-17 12:32] LABS: ALBUMIN 3.3 g/dL (3.4-5.0); TOTAL BILIRUBIN 0.5 mg/dL (0.2-1.0); TOTAL PROTEIN 7.8 g/dL (6.4-8.2)
[2021-07-17 12:39] LABS: BE(vivo) -3.4 mmol/L (-2 to +3); HCO3 20.9 mmol/L (22.0-26.0); PCO2 35.6 mmHg (35.0-45.0); pH 7.387 (7.360-7.450)
[2021-07-17 12:39] LABS: ABSOLUTE NEUTROPHILS 10.8 thou/uL (1.4-8.2); PLATELET ESTIMATE NORMAL
[2021-07-17 15:39] VITALS: BP 154/91
[2021-07-17 16:49] LABS: HEMATOCRIT 42.7 % (37.0-47.0); HEMOGLOBIN 14.4 gm/dL (12.0-15.0); MCH 30.8 pg (26.0-34.0); MCHC 33.6 g/dL (28.0-37.0); MCV 91.6 fL (80.0-100.0); RBC 4.67 mil/uL (4.20-5.00); RDW 14.1 % (10.5-14.5); WBC 15.8 thou/uL (4.0-11.0)
[2021-07-17 16:58] LABS: CALCIUM 8.9 mg/dL (8.5-10.1); CREATININE 0.7 mg/dL (0.6-1.0); POTASSIUM 3.6 mmol/L (3.5-5.1)
[2021-07-17 20:42] VITALS: BP 142/78
[2021-07-17 23:39] VITALS: BP 123/80
[2021-07-18 03:30] VITALS: BP 136/63
--- NOTE | 2021-07-18 07:33 | EKG ---
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: hannah : 1940 Requested By: Vivek Garvin Order Number: [id number] MD: Gmuaro Bedolla Measurements Intervals [place] Rate: 115 P: 52 WY: 162 QRS: 71 QRSD: 88 T: 37 QT: 295 QTc: 408 Interpretive Statements Sinus tachycardia Probable left atrial enlargement Compared to ECG 04/19/2021 07:25:38 Ventricular premature complex(es) no longer present Aberrant conduction of supraventricular beat(s) no longer present Early repolarization no longer present Electronically Signed On 07-18-2021 7:33:11 CDT by Gumaro Bedolla [email or web address] <ELECTRONICALLY SIGNED> By: Gumaro Bedolla MD, FACC 07/18/21 0733 1218 1218 Gumaro Bedolla MD, FACC /EPI
--- NOTE | 2021-07-18 07:44 | NUR ---
ASSUME CARE 1900. PT/VITALS STABLE. CHRONIC BACK PAIN INDICATED WITH MODERATE RELIEF FROM HYDROCODONE AND FLEXERIL. MODERATE TOLERANCE TO ACTIVITY. SR ON MONITOR. 2LNC WITH ADEQUATE SATS. NO DISTRESS NOTED THROUGH THE SHIFT. ASSESSMENT CHARTED. PROGRESSING WELL WITH POC. PLAN IS TO CONTINUE TO MONITOR AND MANAGE RESPIRATORY FUNCTION/PTAND OT ON BOARD TO IMPROVE ACTIVITYT LEVEL. WILL CONTINUE TO MONITOR AND FOLLOW WITH POC
--- NOTE | 2021-07-18 11:32 | NUR ---
PT REFUSED OT EVAL AT THIS TIME. INDEPENDENT IN ALL ADLS. HERE FOR PAIN CONCERN
[2021-07-18 12:30] VITALS: BP 146/77
[2021-07-18 16:00] VITALS: BP 148/76
[2021-07-18 19:36] VITALS: BP 135/65
[2021-07-19 04:57] VITALS: BP 146/65
--- NOTE | 2021-07-19 06:33 | NUR ---
ASSUMED CARE OF PT AT 1900. PT IS ALERT AND ORIENTED, CHIEF COMPLAINT THROUGHOUT THE NIGHT IS BEING SHORT OF BREATH. AT BEGINNING OF SHIFT C/O WORSENING DYSPNEA. AFTER SCHEDULED RT BREATHING TX, SLEPT THROUGHOUT THE NIGHT WITH 2L O2 FOR COMFORT AFTER IV STEROID WAS GIVEN. PAIN CONTROLLED WITH ORAL PAIN MEDSX1. CALLS APPROPRIATELY AND AMBULATES TO THE BATHROOM SBA WITH A WALKER. NO FURTHER COMPLAINTS, RESTING IN ROOM WILL CONTINUE TO MONITOR.
[2021-07-19 08:57] VITALS: BP 146/72
[2021-07-19 12:19] VITALS: BP 136/70
--- NOTE | 2021-07-19 16:16 | NUR ---
I have reviewed the documentation by DARRON BYRNES from 07/19/21 to 07/19/21 and I concur with it. NEGIN LUA
[2021-07-19 16:30] VITALS: BP 144/75
[2021-07-19 17:07] VITALS: BP 144/75
--- NOTE | 2021-07-19 17:09 | NUR ---
Case opened to follow for dc planning. Pt well known to cm from previous admissions. She was here last month and went to SNF at [facility] on 06/08/21 for rehab. Her goal was to f/u with pulm and neuro surgery the week after and get pulm clearance for spinal decompression with Miguel Ángel. The pt is a&ox4 and indicates that Dr. Del Rosario's schedule is full til August. She did see his EXPLOSIVE OPERATOR GRENADE Ernestina in the office. She has admitted now for exac copd and is hoping her lungs improve so she can get her surgery done. She returned home from SNF after about a week and has been recieving HH services from [facility]. 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 The pt is normally indep during the day while her dtr is at work. She has needed dme in place including rwalker and o2. She can avoid using the 13 steps to the basement. She does not feel she needs snf or hh at dc but is open to HH RN f/u pending her progress. Support provided. Will follow. [facility] is aware that she is inpt.
[2021-07-19 20:06] VITALS: BP 138/64
--- NOTE | 2021-07-19 20:12 | NUR ---
took over care for patient at 0700. patient resting in bed at this time. patient denies pain; lidocaine patch removed by this nurse and new patch applied to left lower back. fall precautions in place. patient denies any needs at this time. vitals stable; wearing 2 L oxygen via nasal cannula for comfort.
--- NOTE | 2021-07-20 02:46 | NUR ---
PT IS A/O X4 AND IS UP WITH ASSISTANCE X1 TO THE BSC. REMAINS ON 2 LITERS NC. HAS A NON PRODUCTIVE COUGH. SCHEDULED BRTX GIVEN DIRECTED. SR ON THE MONITOR. VOIDS WITH ASSISTANCE TO THE BSC BUT HAS HAD 2 EPISODES OF INCONTINENCE OF URINE. PT REQUESTS TO WEAR BRIEFS WHILE IN BED. NO BM THIS SHIFT. C/O BACK PAIN. PRN PAIN MEDICATION GIVEN DIRECTED. FALL PRECUATIONS IN PLACE, CALL LIGHT IS WITHIN REACH.
[2021-07-20 04:24] VITALS: BP 142/73
[2021-07-20 07:48] VITALS: BP 142/65
[2021-07-20 12:00] VITALS: BP 164/73
[2021-07-20 15:35] VITALS: BP 151/78
[2021-07-20 20:45] VITALS: BP 147/69
--- NOTE | 2021-07-21 02:30 | NUR ---
ASSUMED PT CARE AT 1900, PT IS AWAKE, ALERT AND ORIENTED, C/O CHRONIC BACK PAIN, PAIN MEDS GIVEN, REMAINS ON RA, SR ON TELE, ASESSMENTS CHARTED, VSS, STBY TO THE BATHROOM, NO NEEDS AT THIS TIME, WILL CONTINUE TO MONITOR
[2021-07-21 04:25] VITALS: BP 134/94
[2021-07-21 07:15] VITALS: BP 147/84
[2021-07-21 15:29] VITALS: BP 145/76
--- NOTE | 2021-07-21 16:19 | NUR ---
Case discussed with the care team. No dc anticipated today. Pt uncertain if she wants to resume hh. 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
--- NOTE | 2021-07-21 19:37 | NUR ---
ASSESSMENT CHARTED - MEDS PER MAR - GIVEN HYDROCODONE AND FLEXERIL FOR CO'S OF BACK PAIN WTH MOD EFFECT. SEPIDEH DIET AND FLUIDS WITH NO CO'S OF NAUSEA. VSS - ACCUCHECKS CHARTED AND LUNCH BLOOD SUGAR COVERED PER SSI. PT UP TOLERATED - AMBULATING TO THE BATHROOM. NO CO'S AT THE PRESENT TIME - APPEARS TO BE RESTING COMFORTABLY. ? HOME TOMORROW.
[2021-07-21 19:46] VITALS: BP 126/55
[2021-07-22 02:06] LABS: GLYCOHEMOGLOBIN (HGB A1C) 5.4 % (4.8-5.6)
--- NOTE | 2021-07-22 03:51 | NUR ---
ASSUMED PT CARE AT 1900, ALERT AND ORIENTED, C/O BACK PAIN, PRN PAIN MEDS GIVEN WITH RELIEF, ASESSMENTS CHARTED, SR/SB ON TELE, UP STBY ASSIST, REMAINS ON RA, SCHEDULED BREATHIN TX, NO DISTRESS NOTED, WILL CONTINUE TO MONITOR PER POC
[2021-07-22 04:51] VITALS: BP 143/66
[2021-07-22 07:50] VITALS: BP 152/82
[2021-07-22 11:40] VITALS: BP 138/76
--- NOTE | 2021-07-22 14:29 | NUR ---
Possible dc over the weekend. orders will need to be faxed to [facility] [phone] and their oncall RN notified at [phone]. The pt has home o2 in place along with a rwalker.
[2021-07-22 15:50] VITALS: BP 145/80
[2021-07-22 16:07] LABS: HEMATOCRIT 40.2 % (37.0-47.0); HEMOGLOBIN 13.3 gm/dL (12.0-15.0); MCH 30.7 pg (26.0-34.0); MCHC 33.1 g/dL (28.0-37.0); MCV 92.7 fL (80.0-100.0); RBC 4.34 mil/uL (4.20-5.00); RDW 14.1 % (10.5-14.5); WBC 10.2 thou/uL (4.0-11.0)
[2021-07-22 16:43] LABS: ANION GAP < 0 mmol/L (7-16); BUN 24 mg/dL (7-18); CALCIUM 8.9 mg/dL (8.5-10.1); CHLORIDE 105 mmol/L (98-107); CO2 39 mmol/L (21-32); CREATININE 0.6 mg/dL (0.6-1.0); GLUCOSE 130 mg/dL (74-106); POTASSIUM 3.7 mmol/L (3.5-5.1); SODIUM 142 mmol/L (136-145)
[2021-07-22 20:15] VITALS: BP 145/75
[2021-07-23 04:45] VITALS: BP 134/64
--- NOTE | 2021-07-23 05:49 | NUR ---
ASSUMED PT CARE AT 1900, ALERT AND ORIENTED, SR/SB ON TELE, ASSESSMENTS CHARTED, PAIN MEDS GIVEN FOR CHRONIC BACK PAIN, MEDS GIVEN PER NOV, REMAINS ON RA, NO NEEDS AT THIS TIME,PROGRESSING TOWARDS DC
[2021-07-23 07:50] VITALS: BP 148/78
[2021-07-23 11:15] VITALS: BP 142/73
[2021-07-23 15:15] VITALS: BP 125/74
[2021-07-23 19:22] VITALS: BP 130/65
--- NOTE | 2021-07-24 05:03 | HC ---
[facility] [place] [address] CONSULTATION Name: LINA LOMELI Room #: 208-P ADM IN M.R.#: [id number] Admission: 07/17/21 Attend Phys: Zofia Wallace MD Discharge: Date of : 44 Report #: [id number] THIS REPORT FOR: cc: Dallin Urias MD, David A. MD Barry, Joseph W. MD ~ DATE OF SERVICE: 07/23/2021 INFECTIOUS DISEASE CONSULTATION ATTENDING PHYSICIAN: Dr. Wallace. REASON FOR EVALUATION: Persistent pneumonitis in spite of antibiotic therapy. HISTORY OF PRESENT ILLNESS: Chart reviewed and patient examined. A 80 year old well known to our service, has actually been hospitalized multiple times this year including previously in March with pneumonitis, also has chronic sinusitis that contributed as well. She does have severe asthma and COPD, although has not typically required supplemental oxygen. She was actually admitted with severe back pain due to lumbar stenosis. She was found to have bilateral infiltrates and persistent cough, more intermittently productive in spite of broad-spectrum antibiotics, felt her clinical picture is changed little. She is tentatively scheduled to undergo lumbar laminectomy, although needs to have improved overall status. She is lucid. She notes her appetite has been somewhat diminished. Throughout her stay here, she has not had any fevers. Initially, was placed on combination therapy with azithromycin, ceftriaxone, this was changed to doxycycline, Zosyn and vancomycin. ALLERGIES: MOXIFLOXACIN, PREGABALIN. CURRENT MEDICATIONS: As described above, antibiotics, benzonatate, fluticasone, amlodipine, gabapentin, methylprednisolone, guaifenesin, insulin lispro sliding scale, cyclobenzaprine, ipratropium, albuterol inhaler, fentanyl, hydrocodone as required. PAST MEDICAL HISTORY: As described above, severe COPD, chronic sinus disease with multiple surgeries, hypertension, spinal stenosis, history of recurrent lower respiratory tract infections. SOCIAL AND FAMILY HISTORY: Available in chart. REVIEW OF SYSTEMS: Otherwise, unremarkable. PHYSICAL EXAMINATION: GENERAL: She appears chronically ill. She is pleasant, cooperative. She is not toxic appearing, although she does appear undernourished. [address] [address] CONSULTATION Name: LINA LOMELI Ash Room #: 208-P [facility].#: [id number] Admission: 07/17/21 Attend Phys: Zofia Wallace MD Discharge: Date of : 44 Report #: [id number] VITAL SIGNS: Temperature 98.3, pulse 67, respirations 18, blood pressure 148/70. SKIN: Warm, dry, no rashes. HEENT: Normocephalic. Extraocular muscles intact. NECK: Supple. LUNGS: Scattered coarse breath sounds. Deep breathing has paroxysms of coughing. ABDOMEN: Soft, nontender. EXTREMITIES: No cyanosis. GENITOURINARY AND RECTAL: Deferred. LABORATORY DATA: Blood cultures collected on admission are sterile thus far. CT of the chest compared to March showed interval improvements in persistent patchy areas of ground-glass opacities, consolidation and nodularity, there is question of atypical infection with resolution. Electrolytes: Sodium 142, potassium 3.7, chloride 105, bicarbonate is 39, anion gap of less than 0. BUN and creatinine 24 and 0.6. Estimated GFR 117. CBC: White count 10.2, H and H 13.3 and 40.2, platelets 230. ASSESSMENT AND PLAN: Pneumonitis, recurrent nature, it is not entirely clear if she has repeated aspiration. Certainly from her standpoint, suggest ongoing sinus issues that could be contributing as well. We will check CT of the sinus. We will try to collect a sputum. Antibiotics have been changed. We will see how she does clinically. Would strongly consider noninfectious causes as well. Discussed with Dr. Wallace. I think it is not unreasonable to consider bronchoscopy if the goal is to improve her situation prior to any surgery, perhaps diagnosis is not apparent to it at this point. She is currently not requiring supplemental oxygen. Continue to monitor expectantly. <ELECTRONICALLY SIGNED> By: Say Werner MD 07/24/21 0503 0804 0828 Say Werner MD /nt
[2021-07-24 05:04] VITALS: BP 150/98
--- NOTE | 2021-07-24 06:20 | NUR ---
alert and oriented, sr on tele, pain meds given for chronic back pain with relief, assessments as charted, meds given a per mar, no acute distress noted, will pass on report
[2021-07-24 07:57] VITALS: BP 169/91
[2021-07-24 11:20] VITALS: BP 114/72
[2021-07-24 15:53] VITALS: BP 132/69
--- NOTE | 2021-07-24 18:25 | NUR ---
PT UP TO BATHROOM AND AMBULATED ROOM. MEDICATE PRN MEDICATION FOR BACK PAIN. PT TAKING IN GOOD PO. WILL CONTINUE TO ASSESS.
[2021-07-24 19:24] VITALS: BP 135/66
[2021-07-25 03:46] VITALS: BP 133/68
--- NOTE | 2021-07-25 06:29 | NUR ---
PT AMBULATING TO BATHROOM WITH STANDBY ASSIST AND IS TOLERATING WELL. LORTAB PROVIDING PAIN RELIEF. RESTING COMFORTABLY. NO NEEDS VOICED. CALL LIGHT WITHIN REACH. FREQUENT OBSERVATION.
[2021-07-25 09:09] VITALS: BP 143/81
[2021-07-25 09:10] VITALS: BP 125/59
[2021-07-25 12:34] VITALS: BP 145/83
--- NOTE | 2021-07-25 14:25 | NUR ---
Nutrition: pt admitted with acute hypoxic respiratory failure, intractable back pain. Seen for LOS. Pt has spinal stenosis and plan for lumbar decompression surgery when PNA/pulmonary status improved. UBW reported as 125-130# however pt feels she is losing weight due to the way clothes fitting. Likely age related muscle loss. Also pt voices she is not a big meat eater but eats protein sources such as beans, cottage cheese fish, yogurt, eggs, etc. Allow cottage cheese on heart healthy diet due to limited intake of other meats. Pt currently drinking ensure clear BID as dislikes ensure enlive supplements. Low nutrition risk.
--- NOTE | 2021-07-25 15:59 | NUR ---
DISCUSSED WITH DR. GRIFFIN OVER THE WEEKEND THAT PATIENT WILL NEED TO SCHEDULE OUT PATIENT BRONCHOSCOPY. PER PATIENT'S REQUEST I REACHED OUT TO DR. GRIFFIN'S SCHEDULING OFFICE TO ASSIST IN SCHEDULING BRONCH. I SPOKE WITH CJ IN SCHEDULE OFFICE. TENTATIVELY, PATIENT IS SCHEDULED FOR OUTPATIENT VISIT (NOT BRONCH) THIS COMING JULY 28 AT 1PM. CJ WILL SPEAK TOMORROW MORNING (07/26) IN PERSON WITH DR. GRIFFIN TO SEE IF PATIENT CAN BE SCHEDULED FOR BRONCH ON JULY 29. SHE WILL ALSO INQUIRE ON NECESSITY OF OUTPATIENT VISIT BEFORE POTENTIAL BRONCH SINCE SHE HAS BEEN SEEN HERE IN THE HOSPITAL FOR SEVERAL DAYS. CJ WILL CALL NURSE STATION TOMORROW MORNING WITH MORE INFORMATION. I DISCUSSED THIS INFORMATION WITH MEHUL (DORYS) AND PATIENT.
[2021-07-25 16:30] VITALS: BP 150/72
[2021-07-25 19:58] VITALS: BP 121/60
[2021-07-26 04:48] VITALS: BP 146/71
--- NOTE | 2021-07-26 05:24 | NUR ---
PT IS ALERT AND OREINTED X4. LUNGS ARE WHEEZY. ON ROOM AIR. COMPALINS OF SORE THROAT AND DRY COUGH LOZENGER GIVEN AND PAIN MEDS GIVEN FOR COMPLAINS OF BACK PAIN. ANTIBITOTICS GIVEN ORDERED. CALL LIGHT WITHIN REACH IF NEEDS ASSISTANCE PER NURSING.
[2021-07-26 08:44] VITALS: BP 147/75
--- NOTE | 2021-07-26 14:27 | NUR ---
met with patient cont plan for home with home health with [facility]. Patient has oxygen at home. She has outpatient apt with Dr Tijerina at 1:00. Broch on sunday the . patient updated.
[2021-07-26 14:43] VITALS: BP 144/75
[2021-07-26 16:15] VITALS: BP 135/66
--- NOTE | 2021-07-26 18:12 | NUR ---
OVERALL PT HAD A GOOD SHIFT. PT WENT DOWN FOR X-RAY THIS AM. PT STATED SHE HAD 1 BM. MEDS GIVING PER MAR. FOLLOWED CARE PLAN.
[2021-07-26 19:53] VITALS: BP 124/58
--- NOTE | 2021-07-27 03:16 | NUR ---
PT IS PLEASANT ALERT AND OREINTED X4. LUNGS ARE WHEEZY NOTED. PT STATES SHE IS TIRED TODAY FROM VISTORS EXHAUSTED. ENCOURAGE PT TO REST. HAS A DRY COUGH NOTED. THROAT LOZENGER GIVEN. COMPLAINS OF CHRONIC BACK PAIN. PAIN MEDS GIVEN AND THEN PT SLEEPING AFTERWARDS. CALL LIGHT WITHIN IF NEEDS ASSISSTANCE PER NURSING.
[2021-07-27 04:36] VITALS: BP 132/56
[2021-07-27 07:43] VITALS: BP 144/66
[2021-07-27] MEDS ORDERED: DOXYCYCLINE HYC50 MG PO (07:59)
[2021-07-27] MEDS ORDERED: AMLODIPINE BESY10 MG PO (07:59)
[2021-07-27] MEDS ORDERED: PREDNISONE 20 M20 M1 PO (07:59)
[2021-07-27] MEDS ORDERED: AMOX TR-K CLV1 EAC4 PO (07:59)
[2021-07-27] MEDS ORDERED: HYDROCODON-ACE1 EAC7 PO (07:59)
[2021-07-27 11:28] VITALS: BP 145/61
[2021-07-27 15:29] VITALS: BP 141/64
--- NOTE | 2021-07-27 16:24 | NUR ---
Patient to dc home today. [facility] rec orders for [facility] care.
--- NOTE | 2021-07-27 16:57 | NUR ---
PT DISCHARGED. EXPLAINED DISCHARGE INSTRUCTIONS, NEW PRESCRIPTIONS, AND HIGH LIGHTED PT'S APPOINTMENTS. PT STATED AND REPEATED BONILLA THE APPOINTMENT TIMES AND DATES. TOOK PT OUT TO ER DOOR VIA WHEEL CHAIR AND ASSISTED PT INTO DAUGHTERS CAR, WITHOUT INCIDENT.
== END 2021-07-27 17:57 | disposition home health service (06) | DRG 871 ==
LOC: ER 11:41 → EROBS 14:27 → 2N 14:27
PROVIDERS: Emergency Medicine; ADMIT Hospitalist; ATTEND Hospitalist
DX: A41.9 Sepsis, unspecified organism (principal); J18.9 Pneumonia, unspecified organism; J96.01 Acute respiratory failure with hypoxia; J44.1 Chronic obstructive pulmonary disease with (acute) exacerbation; J44.0 Chronic obstructive pulmonary disease with (acute) lower respiratory infection; J45.901 Unspecified asthma with (acute) exacerbation; M48.56XA Collapsed vertebra, not elsewhere classified, lumbar region, initial encounter for fracture; M54.59 Other low back pain; Z20.822 Contact with and (suspected) exposure to COVID-19; I10 Essential (primary) hypertension; R65.20 Severe sepsis without septic shock; M19.90 Unspecified osteoarthritis, unspecified site; E87.6 Hypokalemia; Z96.611 Presence of right artificial shoulder joint; G89.29 Other chronic pain; N23 Unspecified renal colic; M54.9 Dorsalgia, unspecified; D72.10 Eosinophilia, unspecified; R59.0 Localized enlarged lymph nodes; M54.50 Low back pain, unspecified; J32.4 Chronic pansinusitis; M48.061 Spinal stenosis, lumbar region without neurogenic claudication; Z90.710 Acquired absence of both cervix and uterus; Z98.42 Cataract extraction status, left eye; Z98.41 Cataract extraction status, right eye; Z88.1 Allergy status to other antibiotic agents; Z88.8 Allergy status to other drugs, medicaments and biological substances; Z95.0 Presence of cardiac pacemaker; Z79.52 Long term (current) use of systemic steroids; Z28.21 Immunization not carried out because of patient refusal
CPT/HCPCS: 10081

== ENCOUNTER → 2021-08-09 | Outpatient (CLI) | payer OTHER ==
[~2021-08-09] VITALS: Ht 165.1 cm; Wt 53.5 kg
[~2021-08-09] MED LIST changes: +AMLODIPINE BESY10 MG PO; +AMOX TR-K CLV1 EAC4 PO; +COMBIVENT RESPIM4 GM INH; +DOXYCYCLINE HYC50 MG PO; +HYDROCODON-ACE1 EAC7 PO; +MULTI VITAMIN1 EACH PO
[2021-08-09 09:01] VITALS: BP 117/64
[2021-08-09 14:45] LABS: BF NUCLEATED CELLS 1051 /mm3; BF RBC 847 /mm3
[2021-08-09 14:47] LABS: CLARITY CLOUDY; COLOR STRAW; TOTAL VOLUME 5 mL
[2021-08-09 17:54] LABS: BF MACROPHAGE 0 %; BF NEUTROPHILS 94 %; SOURCE RESP BRONCH WASH
--- NOTE | 2021-08-11 15:08 | PATH ---
[facility] [address] [place] [address] PATHOLOGY RPT PROCEDURE Name: LINA LOMELI Room #: [facility].#: [id number] Admission: 08/09/21 Date of : 44 Discharge: Report #: [id number] Path Case #: [id number] Note LCA Accession Number: [id number] TESTS RESULT FLAG UNITS REF RANGE LAB Clinician Provided Cytology Information No. of containers..01 Slide Source: 01 BRUSHTIP RUL DIAGNOSIS: 02 BRUSHTIP RUL NEGATIVE FOR MALIGNANT CELLS. REACTIVE BRONCHIAL CELLS AND MACROPHAGES ARE PRESENT. PULMONARY MACROPHAGES (DUST CELLS) ARE PRESENT. Signed out by: 02 Edna Glover MD, Pathologist NPI- [id number] Performed by: Ying Berry, Crystal Inspector ([facility]) Gross description: 01 20ML, CLEAR, COLORLESS /LCS 08/10/2021 1619 Local FLAG LEGEND: L-Low Normal,H-High Normal,LL-Alert Low,HH-Alert High <-Panic Low,>-Panic High,A-Abnormal,AA-Critical Abnormal Performed at: [address] [place] [address] Moise Dennison MD, [address] [address] Suze Valle MD, Performed at: [address], [place], [place] [id number] MD Moise Dennison MD Phone: [phone]
--- NOTE | 2021-08-11 15:08 | PATH ---
[facility] [address] [place] [address] PATHOLOGY RPT PROCEDURE Name: LINA LOMELI Room #: [facility] Ash.#: [id number] Admission: 08/09/21 Date of : 44 Discharge: Report #: [id number] Path Case #: [id number] Note LCA Accession Number: [id number] TESTS RESULT FLAG UNITS REF RANGE LAB Clinician Provided Cytology Information No. of containers..01 Slide Source: 01 BRUSHING RUL DIAGNOSIS: 02 BRUSHING RUL NEGATIVE FOR MALIGNANT CELLS. NORMAL BRONCHIAL CELLS AND RARE INFLAMMATORY CELLS. RED BLOOD CELLS ARE PRESENT. Signed out by: 02 Edna Glover MD, Pathologist NPI- [id number] Performed by: 01 Ying Berry Railway Shunter (AS[facility]) FLAG LEGEND: L-Low Normal,H-High Normal,LL-Alert Low,HH-Alert High <-Panic Low,>-Panic High,A-Abnormal,AA-Critical Abnormal Performed at: [address] [place] [address] Moise Dennison MD, [address] [address] Suze Valle MD, Performed at: [address], [place], [place] [id number] MD Moise Dennison MD Phone: [phone]
== END | disposition home or self-care (01) ==
LOC: OR 08-03 10:03 → PUL 08-03 11:00 → EDSTATUS 08-03 13:31 → PUL 08-03 13:35
PROVIDERS: ATTEND Pediatrics
DX: J98.9 Respiratory disorder, unspecified (principal); I10 Essential (primary) hypertension; J44.9 Chronic obstructive pulmonary disease, unspecified; K21.9 Gastro-esophageal reflux disease without esophagitis; M19.90 Unspecified osteoarthritis, unspecified site; Z98.890 Other specified postprocedural states; Z79.899 Other long term (current) drug therapy; Z90.710 Acquired absence of both cervix and uterus; Z20.822 Contact with and (suspected) exposure to COVID-19; Z98.41 Cataract extraction status, right eye; Z96.612 Presence of left artificial shoulder joint; Z98.42 Cataract extraction status, left eye; Z88.8 Allergy status to other drugs, medicaments and biological substances
CPT/HCPCS: 50010; 62110; 62900; 70005

== ENCOUNTER → 2021-09-14 | Outpatient (CLI) | payer OTHER ==
[2021-09-14 11:04] LABS: HEMATOCRIT 40.2 % (37.0-47.0); HEMOGLOBIN 13.5 gm/dL (12.0-15.0); MCH 30.7 pg (26.0-34.0); MCHC 33.6 g/dL (28.0-37.0); MCV 91.2 fL (80.0-100.0); RBC 4.41 mil/uL (4.20-5.00); RDW 15.1 % (10.5-14.5); WBC 8.7 thou/uL (4.0-11.0)
[2021-09-14 11:17] LABS: ALBUMIN 3.4 g/dL (3.4-5.0); CALCIUM 9.4 mg/dL (8.5-10.1); CREATININE 0.7 mg/dL (0.6-1.0); POTASSIUM 3.5 mmol/L (3.5-5.1); TOTAL BILIRUBIN 0.4 mg/dL (0.2-1.0); TOTAL PROTEIN 7.3 g/dL (6.4-8.2)
[2021-09-14 11:18] LABS: APTT 26.6 Seconds (24.5-32.8); PROTIME 10.9 Seconds (10.5-12.1)
[2021-09-15 08:48] LABS: URINE BILIRUBIN NEGATIVE (Negative); URINE BLOOD NEGATIVE (Negative); URINE CLARITY CLEAR; URINE COLOR YELLOW; URINE GLUCOSE-RANDOM* NEGATIVE (Negative); URINE KETONES NEGATIVE (Negative); URINE LEUKOCYTES-REFLEX NEGATIVE (Negative); URINE NITRITE-REFLEX NEGATIVE (Negative); URINE PROTEIN (DIPSTICK) NEGATIVE (Negative); URINE SPECIFIC GRAVITY >= 1.030 (1.005-1.035); URINE UROBILINOGEN 0.2 E.U./dl (0.2-1.0)
== END ==
LOC: PAC 07:06
PROVIDERS: ATTEND Specialist
DX: Z01.812 Encounter for preprocedural laboratory examination (principal); M48.061 Spinal stenosis, lumbar region without neurogenic claudication; Z20.822 Contact with and (suspected) exposure to COVID-19

== ENCOUNTER 2021-09-19 08:05 | Inpatient (IN) | payer OTHER ==
[~2021-09-19] VITALS: Ht 165.1 cm; Wt 49.4 kg
[2021-09-19 09:25] VITALS: BP 141/70
[2021-09-19 15:15] VITALS: BP 128/64
[2021-09-19 15:53] VITALS: BP 128/68
[2021-09-19 17:04] VITALS: BP 106/56
[2021-09-19 19:36] VITALS: BP 114/62
[2021-09-20 08:21] VITALS: BP 134/72
[2021-09-20 16:36] VITALS: BP 126/58
[2021-09-20 19:33] VITALS: BP 120/60
[2021-09-21 07:20] VITALS: BP 107/61
[2021-09-21 08:52] LABS: ABSOLUTE NEUTROPHILS 2.6 thou/uL (1.4-8.2); BASOPHILS 0.5 % (0.0-2.0); EOSINOPHILS 8.9 % (0.0-3.0); HEMATOCRIT 38.5 % (37.0-47.0); HEMOGLOBIN 12.5 gm/dL (12.0-15.0); LYMPHOCYTES 48.4 % (24.0-44.0); MCH 30.3 pg (26.0-34.0); MCHC 32.6 g/dL (28.0-37.0); MCV 92.9 fL (80.0-100.0); PLATELET COUNT 284 thou/uL (150-400); POLYS 33.2 % (36.0-66.0); RBC 4.14 mil/uL (4.20-5.00); WBC 7.8 thou/uL (4.0-11.0)
[2021-09-21 09:35] LABS: ALBUMIN 2.6 g/dL (3.4-5.0); CALCIUM 8.8 mg/dL (8.5-10.1); CREATININE 0.7 mg/dL (0.6-1.0); MAGNESIUM 1.7 mg/dL (1.8-2.4); POTASSIUM 3.3 mmol/L (3.5-5.1); TOTAL BILIRUBIN 0.4 mg/dL (0.2-1.0); TOTAL PROTEIN 6.4 g/dL (6.4-8.2)
[2021-09-21 15:32] VITALS: BP 113/62
[2021-09-21 19:30] VITALS: BP 116/67
[2021-09-22 07:46] VITALS: BP 115/54
[2021-09-22 15:30] VITALS: BP 100/52
[2021-09-22 19:45] VITALS: BP 109/59
[2021-09-23 07:56] VITALS: BP 118/63
[2021-09-23] MEDS ORDERED: METHOCARBAMOL750 MG PO (11:43)
[2021-09-23] MEDS ORDERED: GABAPENTIN 100100 MG PO (11:43)
[2021-09-23] MEDS ORDERED: MIRALAX17 GM PO (11:43)
[2021-09-23] MEDS ORDERED: COLACE100 MG PO (11:43)
[2021-09-23] MEDS ORDERED: TYLENOL325 MG PO (11:43)
[2021-09-23] MEDS ORDERED: PROTONIX 20 MG20 MG PO (11:43)
[2021-09-23] MEDS ORDERED: BACLOFEN 10MG T10 MG PO (14:40)
[2021-09-23] MEDS ORDERED: HYDROCODON-ACE1 EAC7 PO (14:40)
[2021-09-23 15:44] VITALS: BP 103/53
[2021-09-23 15:45] VITALS: BP 103/53
[2021-09-23 20:00] VITALS: BP 127/64
[2021-09-24 07:21] VITALS: BP 113/54
== END 2021-09-24 11:04 | DRG 518 ==
LOC: PRE → 4S 08:05 → TBA 08:05 → PRE 10:13 → 4S 15:01 → PRE 16:15 → 4S 09-24 11:04
PROVIDERS: Nurse Practitioner; ADMIT Specialist; ATTEND Specialist
PROC: 01NB0ZZ Release Lumbar Nerve, Open Approach (ICD-10-PCS; principal; 2021-09-19)
PROC: 00NY0ZZ Release Lumbar Spinal Cord, Open Approach (ICD-10-PCS; principal; 2021-09-19)
DX: M48.061 Spinal stenosis, lumbar region without neurogenic claudication (principal); E43 Unspecified severe protein-calorie malnutrition; Z68.1 Body mass index [BMI] 19.9 or less, adult; J44.9 Chronic obstructive pulmonary disease, unspecified; M51.16 Intervertebral disc disorders with radiculopathy, lumbar region; J45.909 Unspecified asthma, uncomplicated; I10 Essential (primary) hypertension; M54.9 Dorsalgia, unspecified; G89.29 Other chronic pain; Z96.612 Presence of left artificial shoulder joint; K21.9 Gastro-esophageal reflux disease without esophagitis; M19.90 Unspecified osteoarthritis, unspecified site; R53.81 Other malaise; M51.36 Other intervertebral disc degeneration, lumbar region; K59.00 Constipation, unspecified; K59.09 Other constipation; Z88.1 Allergy status to other antibiotic agents; Z88.8 Allergy status to other drugs, medicaments and biological substances; Z90.710 Acquired absence of both cervix and uterus; Z98.42 Cataract extraction status, left eye; Z98.41 Cataract extraction status, right eye; Z79.899 Other long term (current) drug therapy
CPT/HCPCS: 10102; 50010; 50101; 50402; 50850; 51751; 52259; 56525; 56528; 56532; 57103; 58457; 62110; 62900; 70005